=== PATIENT | male | born 1935 | race Caucasian/White ===

== ENCOUNTER → 2016-03-14 | Outpatient (CLI) | payer OTHER ==
[~2016-03-14] MED LIST: CEPH500C PO; CEPH500C2 PO; DOCU-105 PO; FRRS300 PO; FURO80TA63 PO; METO-478 PO; METO2.5T PO; METO25TA56 PO; MOML PO; MULT-506 PO; MULT1LIQ6; NVLNI SC; POTA-335 PO; POTA1POW; POTA20TA13 PO; SIMV40TA4 PO; SPR25 PO; ZNTT/150 PO; [UNRECOGNIZED DRUG - OTHER]
[2016-03-14 11:10] LABS: BASO % 0.3 %; BASO ABS # 0.02 K/uL (0-0.2); COMPLETE YES; EOS % 4.7 %; HEMATOCRIT 31.3 % (42-52); IG% 0.2 %; LYMPH % 16.5 %; LYMPH ABS # 0.99 K/uL (1.2-3.4); MEAN CELL VOLUME 77.5 fL (80-100); MEAN CORPUSCULAR HEMOGLOBIN 23.8 pg (25-34); MEAN CORPUSCULAR HGB CONC 30.7 g/dl (32-36); MEAN PLATELET VOLUME 10.2 fL (7.4-10.4); NEUT % 68.3 %; PLATELET COUNT 145 K/uL (130-400); RED BLOOD COUNT 4.04 M/uL (4.7-6.1); WHITE BLOOD COUNT 5.99 K/uL (4.8-10.8)
== END | disposition home or self-care (01) ==
LOC: C.LAB1850 10:04
PROVIDERS: ATTEND Nurse Practitioner Family
DX: N18.9 Chronic kidney disease, unspecified (principal); I50.32 Chronic diastolic (congestive) heart failure; E87.6 Hypokalemia

== ENCOUNTER 2016-04-22 11:21 | Inpatient (IN) | payer OTHER ==
[~2016-04-22] VITALS: Ht 180.3 cm; Wt 113.5 kg
[~2016-04-22 11:21] MED LIST changes: -CEPH500C PO; -FRRS300 PO; -METO-478 PO; -MULT-506 PO; -MULT1LIQ6; -POTA1POW; -SPR25 PO
--- NOTE | 2016-04-22 11:56 | DIAGNOSTIC IMAGING REPORT ---
CHEST ONE VIEW PORTABLE CLINICAL HISTORY: Shortness of breath. COMPARISON STUDY: Chest radiograph February 19, 2016. FINDINGS: A single lead left subclavian pacemaker is in place. Cardiomediastinal silhouette is stable. There is no pneumothorax. Lung volumes are diminished. This is unchanged. There are mild bibasilar opacities, left greater than right. There may be a small left pleural effusion. IMPRESSION: 1. Diminished lung volumes with left basilar opacity. Atelectasis is favored although consolidation could appear similar. 2. Possible small left pleural effusion. Electronically signed by: Igor Urbina M.D. 04/22/2016 11:55 AM Dictated Date/Time: 04/22/2016 11:53 AM
[2016-04-22] MEDS ORDERED: POTA1POW (11:59)
[2016-04-22] MEDS ORDERED: MULT1LIQ6 (12:01)
--- NOTE | 2016-04-22 12:08 | EMERGENCY ROOM VISIT NOTE ---
History Report prepared by Sincere: She Snyder Under the Supervision of: Dr. Billy Reyez M.D. First contact with patient: 12:04 Chief Complaint: SHORTNESS OF BREATH Stated Complaint: SOB Nursing Triage Summary: patient has history of CHF, HTN, Diabtetes, left lower leg ampuation and a Pacer. patient reports getting increasingly SOB over the past 3 days with non productive cough. Patient abd is distended which he reports is not normal but has increased slowly over time. History of Present Illness The patient is a 80 year old male who presents to the Emergency Room with complaints of worsening shortness of breath beginning 3 days prior to arrival. The patient states that he feels as though he cannot take a deep breath. He is also experiencing a cough and distended abdomen. The patient has increased swelling to his lower extremities. He has a history of CHF and is on Lasix. He also notes he has a pacemaker. 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 Review of Systems See HPI for pertinent positives & negatives. A total of 10 systems reviewed and were otherwise negative. Past Medical & Surgical Medical Problems: (1) A-fib (2) Abdominal distension (3) Abdominal pain (4) Anemia (5) Arthritis (6) CHF (congestive heart failure) (7) Diabetes (8) Heart disease (9) Hyperkalemia (10) Hypertension (11) Kidney disease (12) Pacemaker (13) Rectal bleed (14) Seizure (15) Sepsis (16) Shortness of breath Family History Patient reports no known family medical history. Social History Smoking Status: Former Smoker Drug Use: none Marital Status: Housing Status: assisted living Occupation Status: retired Current/Historical Medications Scheduled Furosemide (Lasix), 160 MG PO QPM Insulin Human NPH (Novolin N), 40 UNITS SC BID Magnesium Hydroxide (Milk Of Magnesia), 30 ML PO DAILY Metolazone (Zaroxolyn), 2.5 MG PO 2XWK Metoprolol Tartrate (Lopressor) (Lopressor), 25 MG PO BID Potassium Chloride Microencaps (Potassium Chloride Er), 100 MG PO 2XWK Ranitidine (Zantac), 150 MG PO BID Simvastatin (Zocor), 40 MG PO QPM Scheduled PRN Docusate Sodium (Dulcolax Stool Softener), 100-400 MG PO BID PRN for Constipation Miscellaneous Medications Multiple Vitamins W/ Minerals (Multivitamin) Potassium Chloride Pwd (Klor-Con Pwd) [multivitamin iron] Allergies Coded Allergies: Sulfa Antibiotics (Verified Allergy, Unknown, HAS TOLERATED BUMEX, 04/22/16 ) Physical Exam Vital Signs Date Time Temp Pulse Resp B/P Pulse Ox O2 Delivery O2 Flow Rate FiO2 04/22/16 14:43 61 18 123/72 100 Room Air 04/22/16 14:38 100 Room Air 04/22/16 13:21 63 20 96 Room Air 04/22/16 11:44 63 04/22/16 11:30 36.6 77 21 123/58 97 Room Air 04/22/16 11:30 36.6 77 18 123/58 97 Room Air 04/22/16 11:30 97 Room Air 04/22/16 11:30 97 Room Air Physical Exam GENERAL: Patient is a healthy-appearing well-nourished HEAD: Normocephalic atraumatic EYES: Ocular movements intact pupils equal and react to light OROPHARYNX mucous membranes are moist no exudates present no erythema or edema present NECK: Supple no nuchal rigidity CHEST: Good equal expansion LUNGS: Distant lung sounds CARDIAC: Normal S1 and S2 ABDOMEN: Soft nontender no guarding BACK: No CVA tenderness EXTREMITIES: No pain upon palpation normal muscle strength in all groups no clubbing cyanosis or edema. Left above the knee amputation NEURO: Patient is following commands is answering questions appropriately. Alert and oriented x3 Cranial Nerves 2-12 grossly intact Medical Decision & Procedures ER Provider Diagnostic Interpretation: X-ray results as stated below per interpretation by me and the radiologist: CHEST ONE VIEW PORTABLE CLINICAL HISTORY: Shortness of breath. COMPARISON STUDY: Chest radiograph February 19, 2016. FINDINGS: A single lead left subclavian pacemaker is in place. Cardiomediastinal silhouette is stable. There is no pneumothorax. Lung volumes are diminished. This is unchanged. There are mild bibasilar opacities, left greater than right. There may be a small left pleural effusion. IMPRESSION: 1. Diminished lung volumes with left basilar opacity. Atelectasis is favored although consolidation could appear similar. 2. Possible small left pleural effusion. Electronically signed by: Igor Urbina M.D. 04/22/2016 11:55 AM Dictated Date/Time: 04/22/2016 11:53 AM Laboratory Results 04/22/16 11:35 Red Blood Count 4.82, Mean Corpuscular Volume 77.6, Mean Corpuscular Hemoglobin 24.1, Mean Corpuscular Hemoglobin Concent 31.0, Mean Platelet Volume 9.4, Neutrophils (%) (Auto) 65.5, Lymphocytes (%) (Auto) 18.7, Monocytes (%) (Auto) 11.6, Eosinophils (%) (Auto) 3.8, Basophils (%) (Auto) 0.2, Neutrophils # (Auto ) 3.44, Lymphocytes # (Auto) 0.98, Monocytes # (Auto) 0.61, Eosinophils # (Auto ) 0.20, Basophils # (Auto) 0.01 04/22/16 11:35 Test 04/22/16 11:35 04/22/16 13:40 White Blood Count 5.25 K/uL (4.8-10.8) Red Blood Count 4.82 M/uL (4.7-6.1) Hemoglobin 11.6 g/dL (14.0-18.0) Hematocrit 37.4 % (42-52) Mean Corpuscular Volume 77.6 fL (80-100) Mean Corpuscular Hemoglobin 24.1 pg (25-34) Mean Corpuscular Hemoglobin Concent 31.0 g/dl (32-36) Platelet Count 115 K/uL (130-400) Mean Platelet Volume 9.4 fL (7.4-10.4) Neutrophils (%) (Auto) 65.5 % Lymphocytes (%) (Auto) 18.7 % Monocytes (%) (Auto) 11.6 % Eosinophils (%) (Auto) 3.8 % Basophils (%) (Auto) 0.2 % Neutrophils # (Auto) 3.44 K/uL (1.4-6.5) Lymphocytes # (Auto) 0.98 K/uL (1.2-3.4) Monocytes # (Auto) 0.61 K/uL (0.11-0.59) Eosinophils # (Auto) 0.20 K/uL (0-0.5) Basophils # (Auto) 0.01 K/uL (0-0.2) RDW Standard Deviation 59.5 fL (36.4-46.3) RDW Coefficient of Variation 21.2 % (11.5-14.5) Immature Granulocyte % (Auto) 0.2 % Immature Granulocyte # (Auto) 0.01 K/uL (0.00-0.02) Prothrombin Time 13.4 SECONDS (9.0-12.0) Prothromb Time International Ratio 1.2 (0.9-1.1) Activated Partial Thromboplast Time 29.9 SECONDS (21.0-31.0) Partial Thromboplastin Ratio 1.2 D-Dimer 1560 ug/L FEU (0-500) Anion Gap 9.0 mmol/L (3-11) Est Creatinine Clear Calc Drug Dose 37.3 ml/min Estimated GFR () 31.8 Estimated GFR (Non- 27.5 BUN/Creatinine Ratio 23.9 (10-20) Calcium Level 9.2 mg/dl (8.5-10.1) Total Bilirubin 1.0 mg/dl (0.2-1) Aspartate Amino Transf (AST/SGOT) 27 U/L (15-37) Alanine Aminotransferase (ALT/SGPT) 19 U/L (12-78) Alkaline Phosphatase 169 U/L (45-117) Troponin I 0.019 ng/ml (0-0.045) Pro-B-Type Natriuretic Peptide 491 pg/ml (0-1800) Total Protein 7.7 gm/dl (6.4-8.2) Albumin 3.3 gm/dl (3.4-5.0) Globulin 4.4 gm/dl (2.5-4.0) Albumin/Globulin Ratio 0.7 (0.9-2) Influenza Type A (RT-PCR) Neg for Influ A (NEG) Influenza Type B (RT-PCR) Neg for Influ B (NEG) Labs reviewed by ED physician. Medications Administered Medications (Trade) Dose Ordered Sig/Melvin Route Start Time Stop Time Status Last Admin Dose Admin Albuterol/ Ipratropium (Duoneb) 12 ml ONE ONCE INH 04/22/16 13:00 04/22/16 13:01 DC 04/22/16 13:21 12 ML Furosemide (Lasix Inj) 40 mg NOW STAT IV 04/22/16 12:56 04/22/16 12:57 DC 04/22/16 14:43 40 MG ECG Indication: SOB/dyspnea Rate (beats per minute): 66 Rhythm: other (paced) Findings: no acute ischemic change, no ectopy ED Course 1206: Past medical records reviewed. The patient was evaluated in room C10. A complete history and physical examination was performed. 1256: Lasix Inj 40 mg IV. 1300: Duoneb 12 ml INH. 1338: I discussed the patient's case with Dr. Anisha MENDOZA, he has agreed to evaluate the patient for further management and care. Medical Decision The patient is a 80 year old male who presents to the ED with complaints of shortness of breath. Differential diagnosis: Etiologies such as infections, reactive airway disease, pneumonia, pneumothorax , COPD, CHF, cardiac ischemia, pulmonary embolism, musculoskeletal, gastrointestinal, as well as others were entertained. This is a 80-year-old male who presents emergency department complaining of shortness of breath. The patient was given an hour-long breathing treatment along with Lasix. He does not appear to have any evidence of congestive heart failure on chest x-ray. the patient has a history of blood clots in the past however he is not currently on any anticoagulation and he does have an elevation in his d-dimer. For these reasons I did discuss the case with the hospitalist service who agreed to admit the patient. Patient was in agreement with the treatment plan. Consults Time Called: [phone] Consulting Physician: Dr. Gera MENDOZA Returned Call: [phone] I discussed the patient's case with Dr. Anisha MENDOZA, he has agreed to evaluate the patient for further management and care. Impression Primary Impression: Dyspnea Scribe Attestation The scribe's documentation has been prepared under my direction and personally reviewed by me in its entirety. I confirm that the note above accurately reflects all work, treatment, procedures, and medical decision making performed by me. Departure Information Dispostion Being Evaluated By Hospitalist Referrals Lilly Holguin DO (PCP) Problem Qualifiers Primary Impression: Dyspnea Dyspnea type: other forms of dyspnea Qualified Codes: R06.09 - Other forms of dyspnea
[2016-04-22 12:22] LABS: BASO % 0.2 %; BASO ABS # 0.01 K/uL (0-0.2); EOS % 3.8 %; HEMATOCRIT 37.4 % (42-52); IG% 0.2 %; LYMPH % 18.7 %; LYMPH ABS # 0.98 K/uL (1.2-3.4); MEAN CELL VOLUME 77.6 fL (80-100); MEAN CORPUSCULAR HEMOGLOBIN 24.1 pg (25-34); MEAN PLATELET VOLUME 9.4 fL (7.4-10.4); MONO % 11.6 %; NEUT % 65.5 %; PLATELET COUNT 115 K/uL (130-400); RED BLOOD COUNT 4.82 M/uL (4.7-6.1); WHITE BLOOD COUNT 5.25 K/uL (4.8-10.8)
[2016-04-22 12:29] LABS: BUN/CREATININE RATIO 23.9 (10-20); CALCIUM 9.2 mg/dl (8.5-10.1); CREATININE 2.2 mg/dl (0.60-1.40); POTASSIUM 4.3 mmol/L (3.5-5.1)
[2016-04-22 12:32] LABS: INR 1.2 (0.9-1.1); PARTIAL THROMBOPLASTIN RATIO 1.2; PROTHROMBIN TIME (PATIENT) 13.4 SECONDS (9.0-12.0)
[2016-04-22 12:40] LABS: ALB/GLOB RATIO 0.7 (0.9-2)
[2016-04-22 12:45] LABS: COMPLETE YES
[2016-04-22] MEDS ORDERED: FUROSEMIDE 40 MG/4 ML VIAL IV STA (12:56)
[2016-04-22] MEDS ORDERED: ALBUT/IPRATROP 3MG/0.5MG NEB 3 ML VIAL INH ONE (13:00)
[2016-04-22 13:21] VITALS: PULSE 63; O2SAT 96
[2016-04-22 14:38] VITALS: O2SAT 100; BMI 39.8
[2016-04-22] MEDS ORDERED: ACETAMINOPHEN 325 MG TAB PO PRN (14:45)
[2016-04-22] MEDS ORDERED: DOCUSATE SODIUM 100 MG CAP PO PRN (14:45)
[2016-04-22] MEDS ORDERED: POLYETHYLENE (MIRALAX) 17 GM PACK PO PRN (14:45)
[2016-04-22] MEDS ORDERED: MAGNESIUM HYDROXIDE SUSP 30 ML UDC PO PRN (14:45)
[2016-04-22] MEDS ORDERED: ONDANSETRON INJ 2 MG/ML 2 ML VIAL IV PRN (14:45)
[2016-04-22 15:20] LABS: INFLUENZA A PCR Neg for Influ A (NEG); INFLUENZA B PCR Neg for Influ B (NEG)
--- NOTE | 2016-04-22 15:46 | History and Physical ---
History & Physical Date & Time of Service: Apr 22, 2016 at 15:06 Chief Complaint: SOB Primary Care Physician: Lilly Holguin DO History of Present Illness Source: patient, clinic records, hospital records This is a 80 y/o male with a history of CHF, CKD stage III, DM II, HTN, HLD, a- fib, BPH, anemia and h/o left left amputation who presented to the ED on 04/22 with shortness of breath, non-productive cough, weakness and fatigue x 3 days. The patient states that he feels like he cannot take a deep breath. He has been using nebulizer treatments at home but states that they have not helped. He received a Duoneb hour-long in the ED which he also says did not help. He complains of dyspnea on exertion and occasional wheezing. He also reports an intermittent mild soreness across his chest that occurs after he has a coughing fit and will resolve on its own after the coughing has stopped. The patient has chronic swelling in his right lower extremity, but states that the swelling seems to be worse lately than usual. The patient states that he has also noticed abdominal distention over the last month that has slowly progressed. He complains that his abdomen feels hard although he denies any pain, nausea, or vomiting. He has been moving his bowels. The patient denies fevers, chills , sweats, palpitations, claudication, nausea, vomiting, abdominal pain, dysuria , hematuria, urinary retention, paralysis, motor weakness, new numbness and tingling. Past Medical/Surgical History Medical Problems: (1) A-fib Status: Resolved (2) Arthritis Status: Chronic (3) CHF (congestive heart failure) Status: Chronic (4) Diabetes Status: Chronic (5) Heart disease Status: Chronic (6) Hypertension Status: Chronic (7) CKD stage III Status: Chronic (8) Pacemaker Status: Chronic (9) Seizure Status: Resolved Family History Coronary artery disease Myocardial infarction Social History Smoking Status: Former Smoker Smokeless Tobacco Use: No Alcohol Use: none Drug Use: none Marital Status: Housing status: lives alone Occupational Status: retired Immunizations History of Influenza Vaccine: No History of Tetanus Vaccine?: Unknown History of Pneumococcal: Yes Pneumococcal Date: Mar 03, 2009 History of Hepatitis B Vaccine: Unknown Multi-Drug Resistant Organisms History of MDRO: Yes Type of MDRO: MRSA Allergies Coded Allergies: Sulfa Antibiotics (Verified Allergy, Unknown, HAS TOLERATED BUMEX, 04/22/16 ) Home Medications Scheduled Furosemide (Lasix), 160 MG PO QPM Insulin Human NPH (Novolin N), 40 UNITS SC BID Magnesium Hydroxide (Milk Of Magnesia), 30 ML PO DAILY Metolazone (Zaroxolyn), 2.5 MG PO 2XWK Metoprolol Tartrate (Lopressor) (Lopressor), 25 MG PO BID Potassium Chloride Microencaps (Potassium Chloride Er), 100 MG PO 2XWK Ranitidine (Zantac), 150 MG PO BID Simvastatin (Zocor), 40 MG PO QPM Scheduled PRN Docusate Sodium (Dulcolax Stool Softener), 100-400 MG PO BID PRN for Constipation Miscellaneous Medications Multiple Vitamins W/ Minerals (Multivitamin) Potassium Chloride Pwd (Klor-Con Pwd) [multivitamin iron] Review of Systems Constitutional: + fatigue, + weakness, No chills, No fever, No sweats Eyes: No diplopia, No eye pain, No worsening of vision ENT: No hearing loss, No sore throat, No trouble swallowing Respiratory: + cough, + dyspnea on exertion, + shortness of breath, + wheezing (occasional), No sputum Cardiovascular: + chest pain (occurs during coughing fits, resolves afterwards) , + edema (RLE), No claudication, No orthopnea, No palpitations Abdomen: No constipation, No diarrhea, No nausea, No pain, No vomiting Musculoskeletal: No calf pain, No joint pain, No muscle pain Genitourinary - Male: No dysuria, No hematuria, No urinary retention Neurologic: + numbness/tingling (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, no new changes), No paralysis, No weakness Integumentary: + problem reported (venous stasis ulcers RLE, pt goes to wound clinic), No color change, No itch, No rash Physical Exam Vital Signs Date Time Temp Pulse Resp B/P Pulse Ox O2 Delivery O2 Flow Rate FiO2 04/22/16 14:43 61 18 123/72 100 Room Air 04/22/16 13:21 63 20 96 Room Air 04/22/16 11:44 63 04/22/16 11:30 36.6 77 21 123/58 97 Room Air 04/22/16 11:30 36.6 77 18 123/58 97 Room Air 04/22/16 11:30 97 Room Air 04/22/16 11:30 97 Room Air General Appearance: WD/WN, no apparent distress, + obese, + pertinent finding ( pt becomes very red in the face whenever he coughs, then returns to normal color ) Head: normocephalic, atraumatic Eyes: normal inspection, PERRL, EOMI ENT: normal ENT inspection, hearing grossly normal, pharynx normal Neck: supple, no JVD, trachea midline Respiratory/Chest: lungs clear, normal breath sounds, no respiratory distress, + decreased breath sounds (exam limited, pt cannot take deep breaths) Cardiovascular: regular rate, rhythm (paced), no gallop, no murmur Abdomen/GI: normal bowel sounds, non tender, + distended (marked distention) Extremities/Musculoskelatal: no calf tenderness, normal capillary refill, + pedal edema (4+ pitting edema), + swelling (4+ pitting edema in foot, extends up RLE, 1+ around knee), + pertinent finding (RLE erythematous with blistering, venous stasis wound on RLE bandaged. LLE amputated) Neurologic/Psych: alert, normal mood/affect, oriented x 3 Skin: normal color, warm/dry, no rash, + pertinent finding (erythema of RLE from foot to knee, erythema on LLQ of abdomen) Diagnostics Laboratory Results Results Past 24 Hours Test 04/22/16 11:35 04/22/16 13:40 Range/Units White Blood Count 5.25 4.8-10.8 K/uL Red Blood Count 4.82 4.7-6.1 M/uL Hemoglobin 11.6 14.0-18.0 g/dL Hematocrit 37.4 42-52 % Mean Corpuscular Volume 77.6 80-100 fL Mean Corpuscular Hemoglobin 24.1 25-34 pg Mean Corpuscular Hemoglobin Concent 31.0 32-36 g/dl Platelet Count 115 130-400 K/uL Mean Platelet Volume 9.4 7.4-10.4 fL Neutrophils (%) (Auto) 65.5 % Lymphocytes (%) (Auto) 18.7 % Monocytes (%) (Auto) 11.6 % Eosinophils (%) (Auto) 3.8 % Basophils (%) (Auto) 0.2 % Neutrophils # (Auto) 3.44 1.4-6.5 K/uL Lymphocytes # (Auto) 0.98 1.2-3.4 K/uL Monocytes # (Auto) 0.61 0.11-0.59 K/uL Eosinophils # (Auto) 0.20 0-0.5 K/uL Basophils # (Auto) 0.01 0-0.2 K/uL RDW Standard Deviation 59.5 36.4-46.3 fL RDW Coefficient of Variation 21.2 11.5-14.5 % Immature Granulocyte % (Auto) 0.2 % Immature Granulocyte # (Auto) 0.01 0.00-0.02 K/uL Prothrombin Time 13.4 9.0-12.0 SECONDS Prothromb Time International Ratio 1.2 0.9-1.1 Activated Partial Thromboplast Time 29.9 21.0-31.0 SECONDS Partial Thromboplastin Ratio 1.2 D-Dimer 1560 0-500 ug/L FEU Sodium Level 141 136-145 mmol/L Potassium Level 4.3 3.5-5.1 mmol/L Chloride Level 102 98-107 mmol/L Carbon Dioxide Level 30 21-32 mmol/L Anion Gap 9.0 3-11 mmol/L Blood Urea Nitrogen 53 7-18 mg/dl Creatinine 2.20 0.60-1.40 mg/dl Est Creatinine Clear Calc Drug Dose 37.3 ml/min Estimated GFR () 31.8 Estimated GFR (Non- 27.5 BUN/Creatinine Ratio 23.9 10-20 Random Glucose 84 70-99 mg/dl Calcium Level 9.2 8.5-10.1 mg/dl Total Bilirubin 1.0 0.2-1 mg/dl Aspartate Amino Transf (AST/SGOT) 27 15-37 U/L Alanine Aminotransferase (ALT/SGPT) 19 12-78 U/L Alkaline Phosphatase 169 45-117 U/L Troponin I 0.019 0-0.045 ng/ml Pro-B-Type Natriuretic Peptide 491 0-1800 pg/ml Total Protein 7.7 6.4-8.2 gm/dl Albumin 3.3 3.4-5.0 gm/dl Globulin 4.4 2.5-4.0 gm/dl Albumin/Globulin Ratio 0.7 0.9-2 Diagnostic Radiology Reviewed the following studies and agree with interpretation as follows: Patient Name: SHLOMO BROWN Unit Number: [id number] Dictated: 04/22/161152 Transcribed: 04/22/161152 JA Printed Date/Time: [~ rep prt dt]/[~ rep prt tm] [~ rep ct labl] - [~ rep ct ivnm] [facility] [place] [address] Dictated: 04/22/161152 Transcribed: 04/22/161152 JA Printed Date/Time: [~ rep prt dt]/[~ rep prt tm] [~ rep ct labl] - [~ rep ct ivnm] Patient: SHLOMO BROWN Address1: [address] [place] [address] [address] [facility] Rec: [id number] Address2: Acct ID: [id number] [facility] Zip: [place] [address] Date: 1935 Sex: M Room/Bed: Ref Phy: Lilly Holguin DO SC: C.EDC Att Phy: Report #: [id number] Anny Phy: Lilly Holguin DO Test: CXR1P Admit Phy: Pickling Solution Maker: DAFNE Interpreting Phy: Igor Urbina MD Diagnosis: SOB Ordering Phy: ED, PROTOCOL Service Date: 04/22/16 Admit Date: 04/22/16 MNE: [id number] CONF: DICTATED BY: Igor Urbina MD]] CC: ED,PROTOCOL No Doctor, Assigned Lilly Holguin DO Endcc: [~ rep ct add3]] CHEST ONE VIEW PORTABLE CLINICAL HISTORY: Shortness of breath. COMPARISON STUDY: Chest radiograph February 19, 2016. FINDINGS: A single lead left subclavian pacemaker is in place. Cardiomediastinal silhouette is stable. There is no pneumothorax. Lung volumes are diminished. This is unchanged. There are mild bibasilar opacities, left greater than right. There may be a small left pleural effusion. IMPRESSION: 1. Diminished lung volumes with left basilar opacity. Atelectasis is favored although consolidation could appear similar. 2. Possible small left pleural effusion. Electronically signed by: Igor Urbina M.D. 04/22/2016 11:55 AM Dictated Date/Time: 04/22/2016 11:53 AM The status of this report is Signed. Draft = Not yet reviewed or approved by Radiologist. Signed = Reviewed and approved by Radiologist. <AttendingPhy></AttendingPhy> <FamilyPhy>Lilly Holguin, DO</FamilyPhy> < PrimaryPhy>Lilly Holguin, DO</PrimaryPhy> <UnitNumber>[id number]</UnitNumber > <VisitNumber>[id number]</VisitNumber> <PatientName>SHLOMO BROWN</ PatientName> <DateOfBirth>1935</DateOfBirth> <[facility]> < ServiceDate>04/22/16</ServiceDate> <MNE>ESINDI</MNE> <OrderingPhy>ED, PROTOCOL</ OrderingPhy> <OrderingPhyMNE>f rep ord dr bullock</OrderingPhyMNE> <DictatingPhyMNE> f rep dict dr bullock</DictatingPhyMNE> <CCListMNE>f rep ct mne</CCListMNE> < AdmittingPhyMNE>f pt admit dr bullock</AdmittingPhyMNE> <AttendingPhyMNE>f pt attend dr bullock</AttendingPhyMNE> <ConsultingPhyMNE>f pt consult dr bullock</ConsultingPhyMNE> <FamilyPhyMNE>f pt fam dr bullock</FamilyPhyMNE> <OtherPhyMNE>f pt other dr bullock</OtherPhyMNE> < PrimaryPhyMNE>f pt prim care dr bullock</PrimaryPhyMNE> <ReferringPhyMNE>f pt referring dr bullock</ReferringPhyMNE> EKG Reviewed EKG and agree with interpretation as follows: 66 bpm, ventricular paced Impression Assessment and Plan 80 y/o male with a history of CHF, CKD stage III, DM II, HTN, HLD, a-fib, BPH, anemia and h/o left left amputation who presented to the ED on 04/22 with shortness of breath, non-productive cough, weakness and fatigue x 3 days. Recently stopped Pradaxa about 1 month ago due to bleeding issues. Also c/o worsening abdominal distention. Moving bowels. CXR shows likely atelectasis right base. EKG 66 bpm, ventricular paced rhythm. D-dimer elevated at 1560. Elevated creatinine above baseline at 2.2. VSS, pt not tachycardic or hypoxic on room air. Shortness of breath, recently stopped anticoagulation -Admit to med/surg as he is stable and non-hypoxic -Elevated creatinine, contrast contraindicated for CTA -V/Q scan to r/o PE, although given absence of tachycardia and hypoxia, this seems unlikely -Doppler U/S RLE to r/o DVT given erythema and edema Abdominal distention--gradually worsening over last month. Pt has been moving bowels -CT abd/pelvis w/o contrast. Will wait for results before further plan Acute kidney injury on CKD stage III--baseline creatinine around 1.7 -Creatinine upon arrival 2.2, pt given Lasix 40 mg IV in ED -Will await abd CT results before initiating IVF -Continue to monitor Venous stasis ulcers--pt follows up at a wound clinic. Wound culture on 04/16 show PCN/cephalosporin sensitive staph aureus. Pt. started on Keflex as an outpatient 2 days ago. -Keflex 500 mg PO BID x 8 days, renally dosed Chronic diastolic CHF -Continue Lasix 160 mg PO qd and metolazone 2.5 mg PO 2x/week (Mondays and ) -Continue KCl 100 mEq PO 2x/week (Mondays and ) Diabetes mellitus type 2--Last HgbA1c checked 10/11/15 was 7.1 -Insulin sliding scale -Check BSGs q ac and qhs -Recheck HgbA1c HTN--stable -Continue Lopressor 25 mg PO BID HLD -Continue simvastatin 40 mg PO qd DVT prophylaxis -Heparin 5000 units SC q12h -EVELINE Calvos Code Status -Level V, DO NOT RESUSCITATE Level of Care Med/Surg Resuscitation Status DO NOT RESUSCITATE VTE Prophylaxis VTE Risk Assessment Done? Y/N: Yes Risk Level: Moderate Given or contraindicated: Unfractionated heparin SQ, SCD's Reviewed: Pt Seen/Exam by Me, RN Notes, HO Notes, Prior Records, Labs, RAD History I agree with GEETHA Aguilera H&P with some modifications as below A 80 y/o male with a history of CHF, CKD stage 3, T2DM, HTN, HLD, afib, BPH, anemia and hx of left left amputation who comes with shortness of breath, non- productive cough, weakness and fatigue for 3 days. Recently stopped Pradaxa about 1 month ago due to bleeding issues. Also complains of worsening abdominal distention. Moving bowels ok. CXR shows likely atelectasis right base. EKG 66 bpm, ventricular paced rhythm. D-dimer elevated at 1560. Elevated creatinine above baseline at 2.2. VSS, pt not tachycardic or hypoxic on room air. Constitutional: acknowledges: other (obese), denies: chills EENTM: denies: tearing Respiratory: positive: short of breath Cardiovascular: denies chest pain Gastrointestinal/Abdominal: positive: other (distension) Genitourinary: negative discharge Musculoskeletal: negative: back pain Neurological/Psych: negative: anxiety Hematologic/Lymphatic: negative: anemia General Appearance: WD/WN, no apparent distress Eye Exam: bilateral eye normal inspection Ears, Nose, Throat: hearing grossly normal, pharynx normal Neck: non-tender, supple Respiratory: chest non-tender, normal breath sounds Cardiovascular: normal peripheral pulses Gastrointestinal: normal bowel sounds, distended Extremities: swelling (4 + swelling right leg), other (LEFT AKA, right leg wound covered with dressing, some vascular dermatitis present throughout) Neurologic/Psychiatric: alert, normal mood/affect Skin Characteristics: cyanosis Assessment/Plan A 80 y/o male with a history of CHF, CKD stage 3, T2DM, HTN, HLD, afib, BPH, anemia and hx of left left amputation who comes with shortness of breath, non- productive cough, weakness and fatigue for 3 days. Recently stopped Pradaxa about 1 month ago due to bleeding issues. Also complains of worsening abdominal distention. Moving bowels ok. CXR shows likely atelectasis right base. EKG 66 bpm, ventricular paced rhythm. D-dimer elevated at 1560. Elevated creatinine above baseline at 2.2. VSS, pt not tachycardic or hypoxic on room air. Shortness of breath, recently stopped anticoagulation Admit to med/surg contrast contraindicated for CTA due to elevated creatinine V/Q scan to r/o PE, although given absence of tachycardia and hypoxia, this seems unlikely check Doppler U/S RLE to r/o DVT given erythema and edema Abdominal distention, gradually worsening over last month. Pt has been moving bowels CT abd/pelvis w/o contrast. r/o ascites, unfortunately, can`t use contrast for better visualization Acute kidney failure on CKD stage 3, baseline creatinine around 1.7 Creatinine upon arrival 2.2, pt given Lasix 40 mg IV in ED Will await abd CT results before initiating IVF Continue to monitor creatinine Venous stasis ulcers--pt follows up at a wound clinic. Wound culture on 04/16 show PCN/cephalosporin sensitive staph aureus. Patient was started on Keflex as an outpatient 2 days ago. Keflex 500 mg PO BID x 8 days, renally dosed Chronic diastolic CHF, seems to be stable Continue Lasix 160 mg PO qd and metolazone 2.5 mg PO 2x/week (Mondays and ) Continue KCl 100 mEq PO 2x/week (Mondays and ) Diabetes mellitus type 2, Last HgbA1c checked 10/11/15 was 7.1 Insulin sliding scale Check BSGs q ac and qhs Recheck HgbA1c HTN--stable Continue Lopressor 25 mg PO BID HLD Continue simvastatin 40 mg PO qd DVT prophylaxis Heparin 5000 units Sq q12h Code Status: DO NOT RESUSCITATE case discussed with Tawana INIGUEZ time spent 40 min
--- NOTE | 2016-04-22 15:52 | DIAGNOSTIC IMAGING REPORT ---
CT OF THE ABDOMEN AND PELVIS WITHOUT CONTRAST CLINICAL HISTORY: Abdominal distention. COMPARISON STUDY: CT of the abdomen and pelvis January 24, 2016. TECHNIQUE: Axial images of the abdomen and pelvis were obtained without IV contrast. Images were reviewed in the axial, sagittal, and coronal planes. FINDINGS: Visualized portions of the lower chest partially visualize a pacemaker lead. There is moderate cardiomegaly. Gynecomastia is noted. Small bilateral pleural effusions, left larger than right, are noted. There is mild groundglass opacity. No pneumatosis, free air or portal venous gas is present. Evaluation of the abdomen and pelvis is suboptimal on this unenhanced examination. This extensive retroperitoneal fat surrounding both kidneys. There is a small amount of abdominal and pelvic ascites. There is no evidence for a bowel obstruction. The gallbladder surgically absent. There is no biliary ductal dilatation. Unenhanced images of liver, spleen, adrenal glands and pancreas are unremarkable. Generalized anasarca is noted. There is colonic diverticulosis without evidence for acute diverticulitis. No suspicious osseous lesions are present. Bilateral moderate renal cortical thinning is noted. There is no hydronephrosis. A fat and fluid containing umbilical hernia is noted. There is no suspicious osseous lesion. There is no lymphadenopathy. The prostate is mildly enlarged. IMPRESSION: 1. Small amount of abdominal and pelvic ascites. 2. No bowel obstruction. 3. Extensive retroperitoneal fat, a chronic finding. 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 4. Small bilateral pleural effusions, left larger than right. Anasarca. 5. Suboptimal evaluation of the abdomen and pelvis given the lack of contrast. Electronically signed by: Igor Urbina M.D. 04/22/2016 3:50 PM Dictated Date/Time: 04/22/2016 3:39 PM
[2016-04-22 16:52] VITALS: BP 134/72; PULSE 64; TEMP 36.3; O2SAT 98
--- NOTE | 2016-04-22 18:03 | DIAGNOSTIC IMAGING REPORT ---
NUCLEAR MEDICINE VENTILATION/PERFUSION SCAN CLINICAL HISTORY: Shortness of breath. Elevated d-dimer. COMPARISON: Chest radiograph April 22, 2016. TECHNIQUE: For the ventilation portion of this exam, 31 mCi of DTPA was inhaled at 5:20 PM on April 22, 2016. Immediately following inhalation, imaging of the chest was carried out in the anterior, posterior, left lateral, right lateral, LPO, RPO, [place] and COLEMAN projections. For the perfusion portion of exam, 5.5 mCi of technetium 99m MAA was injected IV at 6:15 PM on April 22, 2016. Immediately following injection, imaging of the chest was carried out in the same projections. FINDINGS: There is central radiotracer deposition on the ventilation portion of this exam which suggests chronic lung disease. A photopenic defect projecting over the left upper hemithorax is due to the pacemaker. No mismatched defects are identified on this exam. This study is considered low probability for pulmonary embolus. IMPRESSION: Low probability for pulmonary embolus. Electronically signed by: Igor Urbina M.D. 04/22/2016 6:01 PM Dictated Date/Time: 04/22/2016 6:00 PM
[2016-04-22] MEDS: FUROSEMIDE 80 MG TAB PO SCH (18:31)
[2016-04-22 20:35] VITALS: BP 120/69; PULSE 62
[2016-04-22] MEDS: RANITIDINE HCL 150 MG TAB PO SCH (20:38)
[2016-04-22] MEDS: METOPROLOL TARTRATE 25 MG TAB PO SCH (20:38)
[2016-04-22] MEDS: SIMVASTATIN 40 MG TAB PO SCH (20:38)
[2016-04-22] MEDS: CEPHALEXIN MONOHYDRATE 500 MG CAP PO SCH (20:38)
[2016-04-22] MEDS: HEPARIN SOD 5000 UNIT/0.5 ML CARP SQ SCH (20:45)
--- NOTE | 2016-04-22 21:32 | DIAGNOSTIC IMAGING REPORT ---
RIGHT LOWER EXTREMITY VENOUS DOPPLER CLINICAL HISTORY: Edema and erythema. COMPARISON STUDY: Right lower extremity venous Doppler February 16, 2016. TECHNIQUE: Sonography of the deep venous system of the right lower extremity was performed. Compression and augmentation were evaluated. FINDINGS: The right common femoral, superficial femoral and popliteal veins were compressible. Augmentation was normal. Flow was shown within the deep calf vessels although the calf vessels were suboptimally assessed due to lower extremity edema. IMPRESSION: No evidence of deep venous thrombus within the right lower extremity. Electronically signed by: Igor Urbina M.D. 04/22/2016 9:31 PM Dictated Date/Time: 04/22/2016 9:30 PM
[2016-04-22 22:59] VITALS: BP 120/67; PULSE 61; TEMP 36.2; O2SAT 95
[2016-04-22] MEDS ORDERED: NURSING DECISION MEDICATION ORDER SCH (23:30)
[2016-04-22] MEDS ORDERED: COUGH DROP (SUGAR FREE) LOZ 24 LOZ/1 BOX PO PRN (23:45)
[2016-04-23 06:20] LABS: ESTIMATED AVERAGE GLUCOSE 126 mg/dl; HA1C FLAG Normal (Normal)
[2016-04-23 06:24] LABS: HEMATOCRIT 33.8 % (42-52); MEAN CELL VOLUME 77.5 fL (80-100); MEAN CORPUSCULAR HEMOGLOBIN 24.5 pg (25-34); MEAN CORPUSCULAR HGB CONC 31.7 g/dl (32-36); MEAN PLATELET VOLUME 9.6 fL (7.4-10.4); PLATELET COUNT 109 K/uL (130-400); RED BLOOD COUNT 4.36 M/uL (4.7-6.1); WHITE BLOOD COUNT 5.08 K/uL (4.8-10.8)
[2016-04-23 07:01] LABS: BUN/CREATININE RATIO 23.2 (10-20); CALCIUM 8.4 mg/dl (8.5-10.1); CREATININE 2.4 mg/dl (0.60-1.40); POTASSIUM 4.7 mmol/L (3.5-5.1)
[2016-04-23] MEDS ORDERED: CEPH500C PO (07:25)
[2016-04-23 07:31] VITALS: BP 94/58; PULSE 62; TEMP 36.8; O2SAT 94
[2016-04-23] MEDS: METOPROLOL TARTRATE 25 MG TAB PO SCH ×2 (07:56→21:00)
[2016-04-23] MEDS: HEPARIN SOD 5000 UNIT/0.5 ML CARP SQ SCH ×2 (07:58→21:00)
[2016-04-23] MEDS: POTASSIUM CHLORIDE 20 MEQ TABCR PO SCH (08:02)
[2016-04-23] MEDS: METOLAZONE 2.5 MG TAB PO SCH (08:02)
[2016-04-23] MEDS: RANITIDINE HCL 150 MG TAB PO SCH ×2 (08:02→21:21)
[2016-04-23] MEDS: MAGNESIUM HYDROXIDE SUSP 30 ML UDC PO SCH (08:02)
[2016-04-23] MEDS: CEPHALEXIN MONOHYDRATE 500 MG CAP PO SCH ×2 (08:02→21:20)
[2016-04-23] MEDS ORDERED: DEXTROSE 50% 50 ML SYR IV PRN (08:45)
[2016-04-23] MEDS ORDERED: GLUCOSE 10 TABS/TUBE PO PRN (08:45)
[2016-04-23] MEDS ORDERED: GLUCAGON FOR INJ 1 MG VIAL SQ PRN (08:45)
[2016-04-23] MEDS ORDERED: GLUCOSE 40% GEL 15 GM TUBE PO PRN (08:45)
[2016-04-23] MEDS: SENNA 8.6 MG TAB PO SCH (08:55)
[2016-04-23] MEDS: INSULIN ASPART 100 UNITS/ML 3 ML PEN SC SCH ×4 (08:58→21:22)
[2016-04-23] MEDS: INSULIN GLARGINE SOLOSTAR 100 UNITS/ML 3 ML PEN SC SCH ×2 (08:59→21:22)
[2016-04-23] MEDS ORDERED: MAGNESIUM HYDROXIDE SUSP 30 ML UDC PO SCH (09:00)
[2016-04-23 12:32] VITALS: Ht 180.3 cm; Wt 113.5 kg
[2016-04-23] MEDS ORDERED: SPIRONOLACTONE 25 MG TAB PO ONE (13:00)
--- NOTE | 2016-04-23 13:08 | Hospitalist Progress Note ---
Hospitalist Progress Note Date of Service Apr 23, 2016. (Tawana Aguilera .ALLEN) Subjective Pt evaluation today including: conversation w/ patient, physical exam, chart review, lab review, review of studies, review of inpatient medication list Pain: None PO Intake: Tolerating PO diet Voiding: no voiding problems The patient reports not feeling well. He complains of weakness and fatigue. He states that his shortness of breath remains the same from yesterday, and he is not able to take a deep breath. He does report that his cough is somewhat improved since receiving cough drops and he was able to sleep better last night. He complains of occasional wheezing and LIZ. He reports swelling in his RLE that has remained stable. The patient denies fevers, chills, sweats, chest pain, palpitations, claudication, orthopnea, PND, nausea, vomiting, abdominal pain, dysuria, hematuria, urinary retention, paralysis, weakness, new numbness and tingling. Additional Comments: See HPI for pertinent positives and negatives. All other systems reviewed and negative. (Tawana Aguilera ., ALLEN) Objective Vital Signs Date Time Temp Pulse Resp B/P Pulse Ox O2 Delivery O2 Flow Rate FiO2 04/23/16 08:00 Room Air 04/23/16 07:31 36.8 62 20 94/58 94 Room Air 04/23/16 00:00 Room Air 04/22/16 22:59 36.2 61 18 120/67 95 Room Air 04/22/16 20:35 62 120/69 04/22/16 16:52 36.3 64 20 134/72 98 Room Air 04/22/16 16:35 Room Air 04/22/16 16:31 61 18 116/60 100 04/22/16 16:22 116/60 04/22/16 14:43 61 18 123/72 100 Room Air 04/22/16 14:38 100 Room Air 04/22/16 13:21 63 20 96 Room Air (Tawana Aguilera .CHRISC) Physical Exam General Appearance: WD/WN, no apparent distress, + obese Eyes: normal inspection, PERRL, EOMI ENT: normal ENT inspection, hearing grossly normal, pharynx normal Neck: supple, no JVD, trachea midline Respiratory/Chest: lungs clear, normal breath sounds, no respiratory distress, + decreased breath sounds, + pertinent finding (exam limited as pt cannot take deep breath) Cardiovascular: regular rate, rhythm, no gallop, no murmur Abdomen: normal bowel sounds, + distended, + tenderness (suprapubic area and LLQ TTP) Extremities: + pedal edema (4+ pitting R pedal edema), + swelling (3+ pitting edema in RLE up to knee), + pertinent finding (erythema, blistering RLE, venous stasis wounds) Neurologic/Psychiatric: alert, normal mood/affect, oriented x 3 Skin: normal color, warm/dry, no rash (Tawana Aguilera ., ALLEN) Laboratory Results Last 24 Hours Test 04/22/16 13:40 04/22/16 18:25 04/22/16 20:32 04/23/16 05:49 Influenza Type A (RT-PCR) Neg for Influ A Influenza Type B (RT-PCR) Neg for Influ B Bedside Glucose 86 mg/dl 120 mg/dl White Blood Count 5.08 K/uL Red Blood Count 4.36 M/uL Hemoglobin 10.7 g/dL Hematocrit 33.8 % Mean Corpuscular Volume 77.5 fL Mean Corpuscular Hemoglobin 24.5 pg Mean Corpuscular Hemoglobin Concent 31.7 g/dl RDW Standard Deviation 60.8 fL RDW Coefficient of Variation 21.4 % Platelet Count 109 K/uL Mean Platelet Volume 9.6 fL Sodium Level 141 mmol/L Potassium Level 4.7 mmol/L Chloride Level 103 mmol/L Carbon Dioxide Level 27 mmol/L Anion Gap 11.0 mmol/L Blood Urea Nitrogen 56 mg/dl Creatinine 2.40 mg/dl Est Creatinine Clear Calc Drug Dose 34.2 ml/min Estimated GFR () 28.7 Estimated GFR (Non- 24.7 BUN/Creatinine Ratio 23.2 Random Glucose 153 mg/dl Calcium Level 8.4 mg/dl Test 04/23/16 07:39 04/23/16 11:16 04/23/16 12:24 Bedside Glucose 163 mg/dl 187 mg/dl (Tawana Aguilera PA-C) Diagnostic Results Reviewed the following studies and agree with interpretation as follows: Patient Name: SHLOMO BROWN Unit Number: [id number] Dictated: 04/22/161538 Transcribed: 04/22/161538 JA Printed Date/Time: [~ rep prt dt]/[~ rep prt tm] [~ rep ct labl] - [~ rep ct ivnm] [facility] [place] [place] [address] Dictated: 04/22/161538 Transcribed: 04/22/161538 Printed Date/Time: [~ rep prt dt]/[~ rep prt tm] [~ rep ct labl] - [~ rep ct ivnm] Patient: SHLOMO BROWN Address1: [address] [place] [address] [address] [facility] Rec: [id number] Address2: Acct ID: [id number] [facility] Zip: [place] [address] Date: 1935 Sex: M Room/Bed: Ref Phy: Lilly Holguin DO SC: C.EDC Att Phy: Report #: [id number] Anny Phy: Lilly Holguin DO Test: APWO Admit Phy: Roving Changer: PULAJM Interpreting Phy: Igor Urbina MD Diagnosis: SOB Ordering Phy: Billy Reyez MD Service Date: 04/22/16 Admit Date: 04/22/16 MNE: [id number] CONF: DICTATED BY: Igor Urbina MD]] CC: Billy Reyez MD Ricotta, Cara M., Endcc: [~ rep ct add3]] CT OF THE ABDOMEN AND PELVIS WITHOUT CONTRAST CLINICAL HISTORY: Abdominal distention. COMPARISON STUDY: CT of the abdomen and pelvis January 24, 2016. TECHNIQUE: Axial images of the abdomen and pelvis were obtained without IV contrast. Images were reviewed in the axial, sagittal, and coronal planes. FINDINGS: Visualized portions of the lower chest partially visualize a pacemaker lead. There is moderate cardiomegaly. Gynecomastia is noted. Small bilateral pleural effusions, left larger than right, are noted. There is mild groundglass opacity. No pneumatosis, free air or portal venous gas is present. Evaluation of the abdomen and pelvis is suboptimal on this unenhanced examination. This extensive retroperitoneal fat surrounding both kidneys. There is a small amount of abdominal and pelvic ascites. There is no evidence for a bowel obstruction. The gallbladder surgically absent. There is no biliary ductal dilatation. Unenhanced images of liver, spleen, adrenal glands and pancreas are unremarkable. Generalized anasarca is noted. There is colonic diverticulosis without evidence for acute diverticulitis. No suspicious osseous lesions are present. Bilateral moderate renal cortical thinning is noted. There is no hydronephrosis. A fat and fluid containing umbilical hernia is noted. There is no suspicious osseous lesion. There is no lymphadenopathy. The prostate is mildly enlarged. IMPRESSION: 1. Small amount of abdominal and pelvic ascites. 2. No bowel obstruction. 3. Extensive retroperitoneal fat, a chronic finding. 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 4. Small bilateral pleural effusions, left larger than right. Anasarca. 5. Suboptimal evaluation of the abdomen and pelvis given the lack of contrast. Electronically signed by: Igor Urbina M.D. 04/22/2016 3:50 PM Dictated Date/Time: 04/22/2016 3:39 PM The status of this report is Signed. Draft = Not yet reviewed or approved by Radiologist. Signed = Reviewed and approved by Radiologist. <AttendingPhy></AttendingPhy> <FamilyPhy>Lilly Holguin, DO</FamilyPhy> < PrimaryPhy>Lilly Holguin, DO</PrimaryPhy> <UnitNumber>[id number]</UnitNumber > <VisitNumber>[id number]</VisitNumber> <PatientName>SHLOMO BROWN</ PatientName> <DateOfBirth>1935</DateOfBirth> <Location>C.EDC</Location> < ServiceDate>04/22/16</ServiceDate> <MNE>ESINDI</MNE> <OrderingPhy>Billy Reyez MD</OrderingPhy> <OrderingPhyMNE>f rep ord dr bullock</OrderingPhyMNE> < DictatingPhyMNE>f rep dict dr bullock</DictatingPhyMNE> <CCListMNE>f rep ct massiele</ CCListMNE> <AdmittingPhyMNE>f pt admit dr bullock</AdmittingPhyMNE> <AttendingPhyMNE >f pt attend dr bullock</AttendingPhyMNE> <ConsultingPhyMNE>f pt consult dr bullock</ConsultingPhyMNE> <FamilyPhyMNE>f pt fam dr bullock</FamilyPhyMNE> <OtherPhyMNE>f pt other dr bullock</OtherPhyMNE> < PrimaryPhyMNE>f pt prim care dr bullock</PrimaryPhyMNE> <ReferringPhyMNE>f pt referring dr bullock</ReferringPhyMNE> Patient Name: SHLOMO BROWN Unit Number: [id number] Dictated: 04/22/161799 Transcribed: 04/22/161799 JA Printed Date/Time: [~ rep prt dt]/[~ rep prt tm] [~ rep ct labl] - [~ rep ct ivnm] [facility] [place] [place] [address] Dictated: 04/22/161799 Transcribed: 04/22/161799 JA Printed Date/Time: [~ rep prt dt]/[~ rep prt tm] [~ rep ct labl] - [~ rep ct ivnm] Patient: SHLOMO BROWN Address1: [address] [place] [address] [address] [facility] Rec: [id number] Address2: Acct ID: [id number] [facility] Zip: [place] [address] Date: 1935 Sex: M Room/Bed: [facility] Ref Phy: Lilly Holguin, SC: C.MED Att Phy: Stan Boss MD Report #: [id number] Anny Phy: Lilly Holguin DO Test: LUVQ Admit Phy: Stan Boss MD Roving Changer: JUDITH Interpreting Phy: Igor Urbina MD Diagnosis: ABDOMINAL DISTENSION,SOB Ordering Phy: Tawana Aguilera PA-C Service Date: 04/22/16 Admit Date: 04/22/1701/12/17 MNE: [id number] CONF: DICTATED BY: Igor Urbina MD]] CC: Tawana Aguilera PA-C Ricotta, Cara M., DO Zayets, Stanislav MD Endcc: [~ rep ct add3]] NUCLEAR MEDICINE VENTILATION/PERFUSION SCAN CLINICAL HISTORY: Shortness of breath. Elevated d-dimer. COMPARISON: Chest radiograph April 22, 2016. TECHNIQUE: For the ventilation portion of this exam, 31 mCi of DTPA was inhaled at 5:20 PM on April 22, 2016. Immediately following inhalation, imaging of the chest was carried out in the anterior, posterior, left lateral, right lateral, LPO, RPO, XUAN and COLEMAN projections. For the perfusion portion of exam, 5.5 mCi of technetium 99m MAA was injected IV at 6:15 PM on April 22, 2016. Immediately following injection, imaging of the chest was carried out in the same projections. FINDINGS: There is central radiotracer deposition on the ventilation portion of this exam which suggests chronic lung disease. A photopenic defect projecting over the left upper hemithorax is due to the pacemaker. No mismatched defects are identified on this exam. This study is considered low probability for pulmonary embolus. IMPRESSION: Low probability for pulmonary embolus. Electronically signed by: Igor Urbina M.D. 04/22/2016 6:01 PM Dictated Date/Time: 04/22/2016 6:00 PM The status of this report is Signed. Draft = Not yet reviewed or approved by Radiologist. Signed = Reviewed and approved by Radiologist. <AttendingPhy>Stan Boss MD</AttendingPhy> <FamilyPhy>Lilly Holguin DO </FamilyPhy> <PrimaryPhy>Lilly Holguin DO</PrimaryPhy> <UnitNumber> [id number]</UnitNumber> <VisitNumber>[id number]</VisitNumber> <PatientName> KEVINSHLOMO</PatientName> <DateOfBirth>1935</DateOfBirth> <Location> C.MED</Location> <ServiceDate>04/22/16</ServiceDate> <MNE>ESINDI</MNE> < OrderingPhy>Tawana Aguilera PA-C</OrderingPhy> <OrderingPhyMNE>f rep ord dr bullock< /OrderingPhyMNE> <DictatingPhyMNE>f rep dict dr bullock</DictatingPhyMNE> <CCListMNE >f rep ct massiele</CCListMNE> <AdmittingPhyMNE>f pt admit dr bullock</AdmittingPhyMNE> < AttendingPhyMNE>f pt attend dr bullock</AttendingPhyMNE> <ConsultingPhyMNE>f pt consult dr bullock</ConsultingPhyMNE> <FamilyPhyMNE>f pt fam dr bullock</FamilyPhyMNE> <OtherPhyMNE>f pt other dr bullock</OtherPhyMNE> < PrimaryPhyMNE>f pt prim care dr bullock</PrimaryPhyMNE> <ReferringPhyMNE>f pt referring dr bullock</ReferringPhyMNE> Patient Name: SHOLMO BROWN Unit Number: [id number] Dictated: 04/22/162129 Transcribed: 04/22/162129 JA Printed Date/Time: [~ rep prt dt]/[~ rep prt tm] [~ rep ct labl] - [~ rep ct ivnm] [facility] [place] [place] [address] Dictated: 04/22/162129 Transcribed: 04/22/162129 JA Printed Date/Time: [~ rep prt dt]/[~ rep prt tm] [~ rep ct labl] - [~ rep ct ivnm] Patient: SHLOMO BROWN Address1: [address] [place] [address] [address] [facility] Rec: [id number] Address2: Acct ID: [id number] [facility] Zip: [place] [address] Date: 1935 Sex: M Room/Bed: [facility] Ref Phy: Lilly Holguin DO SC: C.MED Att Phy: Stan Boss MD Report #: [id number] Anny Phy: Lilly Holguin DO Test: VDLEU Admit Phy: Stan Boss MD Roving Changer: GENIA Interpreting Phy: Igor Urbina MD Diagnosis: ABDOMINAL DISTENSION,SOB Ordering Phy: Tawana Aguilera PA-C Service Date: 04/22/16 Admit Date: 04/22/1701/12/17 MNE: PWRSCRIBE CONF: DICTATED BY: Igor Urbina MD]] CC: Tawana Aguilera ., Lilly Mace DO Zayets, Stanislav MD Endcc: [~ rep ct add3]] RIGHT LOWER EXTREMITY VENOUS DOPPLER CLINICAL HISTORY: Edema and erythema. COMPARISON STUDY: Right lower extremity venous Doppler February 16, 2016. TECHNIQUE: Sonography of the deep venous system of the right lower extremity was performed. Compression and augmentation were evaluated. FINDINGS: The right common femoral, superficial femoral and popliteal veins were compressible. Augmentation was normal. Flow was shown within the deep calf vessels although the calf vessels were suboptimally assessed due to lower extremity edema. IMPRESSION: No evidence of deep venous thrombus within the right lower extremity. Electronically signed by: Igor Uribna M.D. 04/22/2016 9:31 PM Dictated Date/Time: 04/22/2016 9:30 PM The status of this report is Signed. Draft = Not yet reviewed or approved by Radiologist. Signed = Reviewed and approved by Radiologist. <AttendingPhy>Stan Boss MD</AttendingPhy> <FamilyPhy>Lilly Holguin DO </FamilyPhy> <PrimaryPhy>Lilly Holguin, </PrimaryPhy> <UnitNumber> [id number]</UnitNumber> <VisitNumber>[id number]</VisitNumber> <PatientName> SHLOMO BROWN</PatientName> <DateOfBirth>1935</DateOfBirth> <Location> [facility]</Location> <ServiceDate>04/22/16</ServiceDate> <MNE>ESINDI</MNE> < OrderingPhy>Tawana Aguilera PA-C</OrderingPhy> <OrderingPhyMNE>f rep ord dr bullock< /OrderingPhyMNE> <DictatingPhyMNE>f rep dict dr bullock</DictatingPhyMNE> <CCListMNE >f rep ct mne</CCListMNE> <AdmittingPhyMNE>f pt admit dr bullock</AdmittingPhyMNE> < AttendingPhyMNE>f pt attend dr bullock</AttendingPhyMNE> <ConsultingPhyMNE>f pt consult dr bullock</ConsultingPhyMNE> <FamilyPhyMNE>f pt fam dr bullock</FamilyPhyMNE> <OtherPhyMNE>f pt other dr bullock</OtherPhyMNE> < PrimaryPhyMNE>f pt prim care dr bullock</PrimaryPhyMNE> <ReferringPhyMNE>f pt referring dr bullock</ReferringPhyMNE> (Tawana Aguilera ., ALLEN) Assessment and Plan 80 y/o male with a history of CHF, CKD stage III, DM II, HTN, HLD, a-fib, BPH, anemia and h/o left left amputation who presented to the ED on 04/22 with shortness of breath, non-productive cough, weakness and fatigue x 3 days. Recently stopped Pradaxa about 1 month ago due to bleeding issues. Also c/o worsening abdominal distention. Moving bowels. CXR shows likely atelectasis right base. EKG 66 bpm, ventricular paced rhythm. D-dimer elevated at 1560. Elevated creatinine above baseline at 2.2. VSS, pt not tachycardic or hypoxic on room air. Shortness of breath, recently stopped anticoagulation -Admit to med/surg as he is stable and non-hypoxic -Elevated creatinine, contrast contraindicated for CTA -V/Q scan to r/o PE, although given absence of tachycardia and hypoxia, this seems unlikely. VQ scan shows low probability of PE -Doppler U/S RLE negative for DVT Acute on chronic diastolic CHF--pt has gained about 15 kg since last admission in January 2016 -Abdominal distention--gradually worsening over last month -CT abd/pelvis w/o contrast shows ascites, anasarca and small bilateral pleural effusions L>R -Cardiology consulted, appreciate recs -Echocardiogram ordered -Start spironolactone 25 mg PO qd, one dose now -Interrogate pacemaker -Recheck TSH -Continue Lasix 160 mg PO qd and metolazone 2.5 mg PO 2x/week (Mondays and ) -Continue KCl 100 mEq PO 2x/week (Mondays and ) Acute kidney injury on CKD stage III--baseline creatinine around 1.7 -Creatinine upon arrival 2.2, pt had been given Lasix 40 mg IV in ED -Repeat creatinine 2.4 on 04/23 Venous stasis ulcers--pt follows up at a wound clinic. Wound culture on 04/16 show PCN/cephalosporin sensitive staph aureus. Pt. started on Keflex as an outpatient 2 days ago. -Keflex 500 mg PO BID x 8 days, renally dosed Diabetes mellitus type 2--Last HgbA1c checked 10/11/15 was 7.1 -Lantus 20 units SC BID -Insulin sliding scale -Check BSGs q ac and qhs -Repeat HgbA1c 6.0 HTN--stable -Continue Lopressor 25 mg PO BID HLD -Continue simvastatin 40 mg PO qd DVT prophylaxis -Heparin 5000 units SC q12h -EVELINE pitt and SCDs Code Status -Level V, DO NOT RESUSCITATE (Tawana Aguilera ., PA-C) Attending Attestation: Pt seen/examined, chart reviewed, care plan d/w PA Tawana Aguilera. I agree w/ the guallpa components of her documentation. Pt with ongoing dyspnea but no orthopnea. "I can't take a deep breath" he states. Some cough. c/o abdominal and LE swelling. VSS, no fever gen - obese, NAD neck - JVD present heart - RRR, s1, s2, 2/6 systolic murmur LSB lungs - decreased BS bases, no wheeze/rales abd - distended, BS+ ext - 3+ pitting edema extending up to the calves; pulses 2+ b/l labs - Cr 2.4 A/P: 1. dyspnea - suspect 2nd to CHF as well as restriction caused by significant abdominal girth 2. suspected acute/chronic diastolic CHF; cannot r/o cor pulmonale as many of his findings on exam suggest right ventricular dysfunction 3. acute kidney injury in setting of CKD 3 agree with ongoing diuresis; add aldactone due to ascites no evidence of decompensated hypothyroidism, cirrhosis, or nephrotic syndrome as cause of volume overload state BMP in am due to #3 interrogate pacer cards consult appreciated Juanjo Torres MD (Juanjo Torres MD)
[2016-04-23 13:11] LABS: THYROID STIMULATING HORMONE 3.15 uIu/ml (0.300-4.500)
[2016-04-23] MEDS ORDERED: PERFLUTREN LIPID MICROSPHERE (DEFINITY) IV ONE (14:29)
[2016-04-23 15:31] VITALS: BP 134/79; PULSE 62; TEMP 36.5; O2SAT 96
[2016-04-23 16:00] VITALS: O2SAT 96
[2016-04-23] MEDS ORDERED: FUROSEMIDE INJ 120 MG in SYRINGE 0 ML IV ONE (16:00)
[2016-04-23] MEDS: FUROSEMIDE 80 MG TAB PO SCH (17:00)
--- NOTE | 2016-04-23 17:16 | ECHOCARDIOGRAM REPORT ---
*NOTICE TO RECEIVING LIBERTARIAN AGENCY This information is strictly Confidential and protected under [place] law. [place] law prohibits you from making any further disclosure of this information unless further disclosure is expressly permitted by the written consent of the person to whom it pertains or is authorized by law. A general authorization for the release of medical or other information is not sufficient for this purpose. Hospital accepts no responsibility if the information is made available to any other person, INCLUDING THE PATIENT. Interpretation Summary * Name: SHLOMO BROWN Study Date: 04/23/2016 01:06 PM BP: 94/58 mmHg * Patient Location: .[facility]\S\N281\S\2 HR: 62 * : 1935 (M/d/yyyy) Gender: Male Height: 71 in * Age: 80 yrs Ethnicity: [place] Weight: 285 lb * Ordering Physician: Tawana Aguilera * Referring Physician: Self, Referred * Performed By: Radha Robert RCS * * Reason For Study: CHF * BSA: 2.5 m2 * -- Conclusions -- * 1. Technically limited study even with the use of definity ultrasound contrast. * 2. Normal LV size wall thickness. * 3. Grossly normal LV function. EF 55-60%. Paradoxical septal motion consistent with conduction abnormality. * 4. RV not well visualized. Grossly normal size and function. * 5. No significant valvular pathology * 6. Mild pulmonary hypertension (Est. 35-40 mmHg, RA 8). * 7. Compared with prior study 10/12/2015: No significant change Procedure Details * A complete two-dimensional transthoracic echocardiogram was performed (2D, M-mode, Doppler and color flow Doppler). * The study was technically difficult. * There were technical limitations due to patient's supine positioning for imaging and body habitus * A contrast injection of Definity was performed to improve assessment of LV function. * Contrast was injected into an intravenous site in the left arm. * One vial of Definity ultrasound contrast was diluted in normal saline to a total volume of 10 ml. A total of '2' ml of solution was administered during imaging. * Lot # [id number] of Definity utilized for procedure. * Expiration date . * The attending nurse who injected the contrast agent was Anitha Rai RN. Left Ventricle * The left ventricle is grossly normal size. * There is normal left ventricular wall thickness. * Ejection Fraction = 55-60%. * Septal motion is consistent with conduction abnormality. Right Ventricle * The right ventricle is grossly normal size. * The right ventricle is not well visualized. * The right ventricular systolic function is qualitatively normal. Atria * Borderline left atrial enlargement. * Right atrium not well visualized. * No ASD detected; PFO is not assessed. Mitral Valve * The mitral valve leaflets appear thickened, but open well. * There is no mitral valve stenosis. * Significant mitral regurgitation is absent. Tricuspid Valve * The tricuspid valve is not well visualized, but is grossly normal. * There is no tricuspid stenosis. * There is mild tricuspid regurgitation. Aortic Valve * The aortic valve opens well. * The aortic valve is trileaflet. * No hemodynamically significant valvular aortic stenosis. * There is no significant aortic regurgitation. Pulmonic Valve * The pulmonic valve is not well seen, but is grossly normal. * The pulmonary valve is inadequately visualized, but the Doppler data is adequate for interpretation. * There is no pulmonic valvular stenosis. * Mild pulmonic valvular regurgitation. Great Vessels * The aortic root and proximal ascending aorta are normal sized. Pericardium/Pleural * There is no pericardial effusion. Great Vessels * IVC > 2.1, > 50% change with respiration MMode 2D Measurements and Calculations IVSd 0.97 cm IVSs 1.2 cm LVIDd 3.1 cm LVIDs 2.3 cm LVPWd 10 cm LVPWs 1.2 cm IVS/LVPW 0.98 FS 26.5 % EDV(Teich) 39.0 ml ESV(Teich) 18.2 ml EF(Teich) 53.3 % EDV(cubed) 30.8 ml ESV(cubed) 12.2 ml EF(cubed) 60.3 % % IVS thick 21.7 % % LVPW thick 20.1 % LV mass(C)d 85.8 grams LV mass(C)dI 35.0 grams/m\S\2 LV mass(C)s 76.1 grams LV mass(C)sI 31.0 grams/m\S\2 CO(Teich) 1.2 l/min CI(Teich) 0.51 l/min/m\S\2 SV(Teich) 20.8 ml SI(Teich) 8.5 ml/m\S\2 CO(cubed) 1.1 l/min CI(cubed) 0.46 l/min/m\S\2 SV(cubed) 18.6 ml SI(cubed) 7.6 ml/m\S\2 Ao root diam 3.8 cm Ao root area 11.5 cm\S\2 ACS 1.8 cm LA dimension 4.1 cm LA/Ao 1.1 LVAd ap4 29.3 cm\S\2 LVLd ap4 8.3 cm EDV(MOD-sp4) 85.0 ml LVAs ap4 22.4 cm\S\2 LVLs ap4 8.4 cm ESV(MOD-sp4) 48.0 ml EF(MOD-sp4) 43.5 % LVAd ap2 36.4 cm\S\2 LVLd ap2 8.8 cm EDV(MOD-sp2) 123.0 ml LVAs ap2 20.7 cm\S\2 LVLs ap2 7.1 cm ESV(MOD-sp2) 49.0 ml EF(MOD-sp2) 60.2 % CO(MOD-sp4) 2.2 l/min CI(MOD-sp4) 0.91 l/min/m\S\2 SV(MOD-sp4) 37.0 ml SI(MOD-sp4) 15.1 ml/m\S\2 CO(MOD-sp2) 4.4 l/min CI(MOD-sp2) 1.8 l/min/m\S\2 SV(MOD-sp2) 74.0 ml SI(MOD-sp2) 30.2 ml/m\S\2 Doppler Measurements and Calculations MV E max kim 67.9 cm/sec MV A max kim 22.8 cm/sec MV E/A 3.0 MV P1/2t max kim 84.6 cm/sec MV P1/2t 86.8 msec MVA(P1/2t) 2.5 cm\S\2 MV dec slope 285.3 cm/sec\S\2 Ao V2 max 97.1 cm/sec Ao max PG 3.8 mmHg Ao max PG (full) 0.97 mmHg LV V1 max PG 2.8 mmHg LV V1 max 83.7 cm/sec PA V2 max 77.7 cm/sec PA max PG 2.4 mmHg PI max kim 246.4 cm/sec PI max PG 24.3 mmHg PI dec slope 151.9 cm/sec\S\2 PI P1/2t 475.2 msec TR max kim 279.8 cm/sec
[2016-04-23 17:54] VITALS: BP 147/81
[2016-04-23 21:14] VITALS: BP 144/73; PULSE 58; PULSE 62
[2016-04-23] MEDS: SIMVASTATIN 40 MG TAB PO SCH (21:21)
[2016-04-23 23:40] VITALS: BP 115/65; PULSE 60; TEMP 36.6; O2SAT 96
[2016-04-24] VITALS: O2SAT 96
--- NOTE | 2016-04-24 07:12 | CARDIOLOGY CONSULTATION REPORT ---
DATE OF CONSULTATION: 04/23/2016 REASON FOR CONSULTATION: 1. Decompensated Diastolic CHF. 2. Chronic Atrial Fibrillation. 3. Ascites. HISTORY OF PRESENT ILLNESS: Mr. 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 He states that his abdomen feels so full and "that is what prevents me from taking a deeper breath". Additionally, he has developed some blistering of his right lower extremity secondary to the amount of edema. The patient offered no other complaints. He denies any chest pain, heaviness, tightness, or pressure. No neck, jaw, back, or arm pain. He denies any syncope, or near syncope. The patient continues to take oral Lasix 160 mg daily each evening, and also uses metolazone 2.5 mg every Saturday and before taking his evening Lasix dose. He generally gets a good diuretic response with this. MEDICATIONS: 1. Spironolactone 25 mg daily. 2. NovoLog sliding scale insulin. 3. Lantus insulin 20 units subcutaneous injection b.i.d. 4. Senokot 8.6 mg each morning. 5. Milk of magnesia 30 mL each day. 6. Metolazone 2.5 mg every Saturday and before Lasix dose. 7. KCL 100 mEq twice a week (on days that metolazone is used). 8. N'ICE lozenges. 9. Heparin 5000 units subcutaneus injection q. 12 hours. 10. Lopressor 25 mg b.i.d. 11. Zantac 150 mg b.i.d. 12. Simvastatin 40 mg at bedtime. 13. Keflex 500 mg b.i.d. 14. Furosemide 160 mg p.o. daily. 15. Tylenol p.r.n. 16. Maalox Max p.r.n. 17. MiraLax p.r.n. 18. Zofran p.r.n. 19. Colace 100 mg b.i.d. p.r.n. for constipation. ALLERGIES: SULFA DRUGS. PAST MEDICAL HISTORY: 1. Chronic diastolic CHF, followed in our heart failure clinic. 2. Chronic atrial fibrillation. 3. Status post pacemaker placement. 4. Chronic leg edema. 5. Chronic kidney disease. 6. History of tachybrady syndrome. 7. Hypertension. 8. Dyslipidemia. 9. Type 2 diabetes mellitus with multiple diabetic complications. 10. Mild carotid plaques. 11. Preserved LVEF on echocardiogram, 10/10/2015. It was a technically difficult study. 12. Diagnoses mentioned above. SOCIAL HISTORY: The patient is a chatterjee smoker. He is , lives alone and his retired. Very limited in his activities due to surgically absent left leg. He still gets around with a motorized scooter. He does not adhere to a low sodium diet. FAMILY HISTORY: Significant for CAD and myocardial infarction. PHYSICAL EXAMINATION: VITAL SIGNS: Temperature is 36.8 degrees Celsius, pulse is 64 and irregular, respiratory rate is 18 and unlabored, blood pressure is 94/58 and SpO2 is 94% on room air. I&O's minus 480 mL total. Body weight 129.3 kilograms. GENERAL: The patient is in no acute distress. HEENT: Head is atraumatic, normocephalic. EOMs intact. Sclerae are anicteric. Face is symmetric. No perioral cyanosis. Mucous membranes moist. NECK: Without thyromegaly or adenopathy. Jugular venous pressure is elevated, to the angle of the jaw sitting up right. CHEST AND LUNGS: With absent breath sounds in bilateral bases, occasional scattered crackles in bilateral lower lung mallory. CARDIOVASCULAR: S1 and S2 are slightly irregular, distant, without obvious murmur, gallop, or rub. PMI is nonpalpable. No lifts, heaves, or thrills. No abdominal aortic or renal bruits. ABDOMEN: Bowel sounds are present. Abdomen is distended, otherwise nontender. No guarding, rigidity, or rebound tenderness. EXTREMITIES: Left leg is surgically absent. Right leg is with +3 pitting edema to the level of the knee and distal thigh. Dressing over the right lower leg. NEUROLOGIC: The patient is awake, alert and oriented. Pleasant and cooperative. Answers questions appropriately. Speech is clear. Normal movement bilateral upper extremities. DATA: EKG on admission shows underlying atrial fibrillation with a ventricular paced rhythm, pacemaker induced LBBB pattern. Chest x-ray shows diminished lung volumes bilaterally with basilar opacity, atelectasis likely. Possibly small left pleural effusion. Venous duplex Doppler right lower extremity shows no evidence of DVT. 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 LABORATORY DATA: White blood cell count is 5.08, hemoglobin 10.7 g/dL, hematocrit 33.8%, platelet count is 109,000. Sodium is 141 mmol/L, potassium 4.7 mmol/L, BUN 56 mg/dL and creatinine is 2.40 mg/dL, random glucose 187 mg/dL. Troponin I is 0.019 ng/mL, proBNP 491 pg/mL, TSH is 3.150 uIU/mL. ASSESSMENT: 1. Ascites/anasarca, multifactorial. 2. Hypervolemia. 3. Diastolic congestive heart failure. 4. Chronic atrial fibrillation. 5. Tachybrady syndrome status post pacemaker placement. 6. Longstanding type 2 diabetes mellitus with multiple complications. 7. Chronic kidney disease. 8. Hypertension, controlled. 9. Right leg edema. PLAN: 1. The patient has evidence of hypervolemia, in particular he has an elevated jugular venous pressure to the angle of the jaw sitting upright. He also has extensive edema of the right lower extremity as well as ascites of the abdomen. 2. Suspect if we get him closer to euvolemic, he will likely perfuse his kidneys better, and should have an improvement in his creatinine. 3. Monitor daily I&O's, daily body weights. 4. Give single dose of IV Lasix 120 mg now. 5. Continue shelter Lopressor. 6. Continue spironolactone. 7. Monitor daily laboratories. 8. We have reiterated the importance of a low sodium diet. 9. Continue shelter statin medication. 10. We will continue to follow closely. [facility]
[2016-04-24 07:53] VITALS: BP 109/61; PULSE 61; TEMP 36.3; O2SAT 93
[2016-04-24 07:56] LABS: HEMATOCRIT 34.7 % (42-52); MEAN CELL VOLUME 76.8 fL (80-100); MEAN CORPUSCULAR HEMOGLOBIN 24.3 pg (25-34); MEAN CORPUSCULAR HGB CONC 31.7 g/dl (32-36); MEAN PLATELET VOLUME 9.6 fL (7.4-10.4); PLATELET COUNT 106 K/uL (130-400); RED BLOOD COUNT 4.52 M/uL (4.7-6.1); WHITE BLOOD COUNT 4.92 K/uL (4.8-10.8)
[2016-04-24 08:33] LABS: BUN/CREATININE RATIO 22.8 (10-20); CALCIUM 8.8 mg/dl (8.5-10.1); CREATININE 2.3 mg/dl (0.60-1.40); MAGNESIUM 2.8 mg/dl (1.8-2.4); POTASSIUM 3.6 mmol/L (3.5-5.1)
[2016-04-24] MEDS: HEPARIN SOD 5000 UNIT/0.5 ML CARP SQ SCH ×2 (09:00→20:38)
[2016-04-24] MEDS ORDERED: POTASSIUM CHLORIDE 20 MEQ TABCR PO ONE (09:00)
[2016-04-24] MEDS: METOPROLOL TARTRATE 25 MG TAB PO SCH ×2 (09:09→20:27)
[2016-04-24] MEDS: SPIRONOLACTONE 25 MG TAB PO SCH (09:10)
[2016-04-24] MEDS: CEPHALEXIN MONOHYDRATE 500 MG CAP PO SCH ×2 (09:10→20:27)
[2016-04-24] MEDS: SENNA 8.6 MG TAB PO SCH (09:10)
[2016-04-24] MEDS: RANITIDINE HCL 150 MG TAB PO SCH ×2 (09:10→20:27)
[2016-04-24] MEDS: MAGNESIUM HYDROXIDE SUSP 30 ML UDC PO SCH (09:11)
[2016-04-24] MEDS ORDERED: FUROSEMIDE INJ 120 MG in SYRINGE 0 ML IV SCH (09:15)
[2016-04-24] MEDS: INSULIN ASPART 100 UNITS/ML 3 ML PEN SC SCH ×4 (09:15→20:36)
[2016-04-24] MEDS: INSULIN GLARGINE SOLOSTAR 100 UNITS/ML 3 ML PEN SC SCH ×2 (09:15→20:29)
--- NOTE | 2016-04-24 09:21 | CARDIOLOGY PROGRESS NOTE ---
DATE: 04/24/2016 HISTORY OF PRESENT ILLNESS: Mr. Juan was admitted with acute on chronic diastolic CHF, ascites/anasarca after having progressive cough, shortness of breath, inability to take a deep breath, progressive right leg edema, and abdominal distention and bloating. We gave him an injection of Lasix 120 mg last evening and he had a good diuretic response with it. Took off a total of 1.2 liters yesterday. His kidney function has improved since yesterday as well. The patient states his abdomen is slightly less distended, and he may have an improvement in his breathing. He continues to have leg edema and feels somewhat bloated most of the time. He offers no other complaints. He denies any chest pain, heaviness, tightness, or pressure. No neck, jaw, back, or arm pain. No palpitations, syncope, or near syncope. PHYSICAL EXAMINATION: VITAL SIGNS: Temperature is 36.3 degree Celsius, pulse 60 and regular, respiratory rate is 18 and unlabored, blood pressure is 109/61. SpO2 is 93% on room air. I&O -1200 mL total. Body weight is pending today. GENERAL: The patient is in no acute distress. HEENT: Head is atraumatic, normocephalic. EOMs intact. Sclerae are anicteric. Facies symmetric. No perioral cyanosis. Mucous membranes moist. NECK: Without thyromegaly or adenopathy. Jugular venous pressure remains elevated to the angle of the jaw sitting upright. CHEST AND LUNGS: With absent breath sounds in the extreme bilateral bases, occasional crackles in the bilateral lower lung mallory. CARDIOVASCULAR SYSTEM: S1 and S2 are slightly irregular, distant, without obvious murmur, gallop or rub. PMI is nonpalpable. No lifts, heaves, or thrills. No abdominal, aortic or renal bruits. ABDOMEN: Bowel sounds are present. Abdomen is distended. No guarding or rigidity. EXTREMITIES: +3 pitting edema to the level of the proximal tibia on the right. The left leg is surgically absent. NEUROLOGIC: The patient is awake, alert and oriented. Pleasant and cooperative. Answers questions appropriately. Speech is clear. Normal movement in bilateral upper extremities. LABORATORIES: White blood cell count is 4.92. Hemoglobin 11.0 g/dL, hematocrit 34.7%, platelet count is 106,000. Sodium is 141 mmol/L, potassium 3.6 mmol/L. BUN 52 mg/dL, creatinine 2.30 mg/dL. Random glucose 139 mg/dL. Magnesium level was 2.8 mg/dL. Echocardiogram performed on 04/23/2016 reveals the followin. Normal LV size and wall thickness. 2. Grossly normal LV systolic function, LVEF 55% to 60%. Paradoxical septal motion consistent with conduction abnormality. 3. RV not well visualized, grossly normal in size and function. 4. No significant valvular abnormalities. 5. Mild pulmonary hypertension (estimated PASP 35-40 mmHg). ASSESSMENT: 1. Acute on chronic diastolic congestive heart failure manifested as ascites, abdominal distention, cough, shortness of breath, and progressive leg edema. 2. Chronic kidney disease. 3. Chronic atrial fibrillation. 4. Tachybrady syndrome, status post pacemaker placement. 5. No angina pectoris or anginal equivalent symptoms. 6. No signs or symptoms suggestive of stroke or mini stroke. PLAN: 1. Continue Lopressor 25 mg b.i.d. 2. Continue spironolactone 25 mg daily. 3. Continue IV Lasix 120 mg daily until the patient is euvolemic or his renal function declines. 4. Closely monitor daily I&O's, body weights. 5. Continue ad terminal makeup operator simvastatin. 6. Low sodium diet. 7. We will continue to follow. [facility]
[2016-04-24 15:30] VITALS: BP 145/76; PULSE 60; TEMP 36.5; O2SAT 95
[2016-04-24 16:00] VITALS: O2SAT 95
[2016-04-24] MEDS: FUROSEMIDE 80 MG TAB PO SCH (16:48)
[2016-04-24 20:25] VITALS: BP 131/73; PULSE 60
[2016-04-24] MEDS: SIMVASTATIN 40 MG TAB PO SCH (20:26)
[2016-04-24 23:54] VITALS: BP 150/84; PULSE 60; TEMP 36.4; O2SAT 95
--- NOTE | 2016-04-25 06:14 | Progress Note ---
Subjective Date of Service: late entry for visit Apr 24, 2016. Subjective Pt evaluation today including: conversation w/ patient, physical exam, chart review, lab review, conversation w/ planning consultant (cardiology), review of inpatient medication list Pain: none PO Intake: normal Voiding: no voiding problems dyspnea improved can take larger breaths peripheral edema improved feels better overall but "not quite back" to his normal Problem List Medical Problems: (1) Acute kidney injury Status: Acute (2) Acute pyelonephritis Status: Acute (3) Current use of exterminator helper anticoagulation Status: Acute (4) Dyspnea Status: Acute (5) GI bleed Status: Acute (6) GI bleed Status: Acute (7) Hypoglycemia Status: Acute (8) Hyponatremia Status: Acute (9) Renal insufficiency Status: Acute (10) Shortness of breath Status: Acute (11) Urinary tract infection Status: Acute Review of Systems Constitutional: No fever Respiratory: + dyspnea on exertion, No cough, No dyspnea at rest Cardiac: + edema, No chest pain Abdomen: No pain Objective Vital Signs Date Time Temp Pulse Resp B/P Pulse Ox O2 Delivery O2 Flow Rate FiO2 04/25/16 00:00 Room Air 04/24/16 23:54 36.4 60 18 150/84 95 Room Air 04/24/16 20:25 60 131/73 04/24/16 20:00 Room Air 04/24/16 16:00 95 Room Air 04/24/16 15:30 36.5 60 18 145/76 95 Room Air 04/24/16 08:35 Room Air 04/24/16 07:53 36.3 61 18 109/61 93 Room Air Physical Exam General Appearance: no apparent distress, + obese ENT: pharynx normal Neck: + JVD Respiratory/Chest: no respiratory distress, no accessory muscle use, + decreased breath sounds (bases), + crackles (some, bases) Cardiovascular: regular rate, rhythm, no gallop, no murmur Abdomen: normal bowel sounds, non tender, soft, no organomegaly, + distended ( with ascites) Extremities: + pedal edema (right leg, about 2+ but improved), + pertinent finding (left AKA) Neurologic/Psychiatric: alert, oriented x 3 Skin: no rash Laboratory Results Last 24 Hours Test 04/24/16 07:30 04/24/16 07:47 04/24/16 11:29 04/24/16 16:47 White Blood Count 4.92 K/uL Red Blood Count 4.52 M/uL Hemoglobin 11.0 g/dL Hematocrit 34.7 % Mean Corpuscular Volume 76.8 fL Mean Corpuscular Hemoglobin 24.3 pg Mean Corpuscular Hemoglobin Concent 31.7 g/dl RDW Standard Deviation 60.2 fL RDW Coefficient of Variation 21.5 % Platelet Count 106 K/uL Mean Platelet Volume 9.6 fL Sodium Level 141 mmol/L Potassium Level 3.6 mmol/L Chloride Level 102 mmol/L Carbon Dioxide Level 27 mmol/L Anion Gap 12.0 mmol/L Blood Urea Nitrogen 52 mg/dl Creatinine 2.30 mg/dl Est Creatinine Clear Calc Drug Dose 35.7 ml/min Estimated GFR () 30.2 Estimated GFR (Non- 26.0 BUN/Creatinine Ratio 22.8 Random Glucose 137 mg/dl Calcium Level 8.8 mg/dl Magnesium Level 2.8 mg/dl Bedside Glucose 139 mg/dl 216 mg/dl 114 mg/dl Test 04/24/16 20:03 04/25/16 04:44 Bedside Glucose 124 mg/dl Assessment and Plan 80yo male: 1. acute/chronic diastolic CHF - improved. Net negative fluid balance each day. Cr improved/stable. Lasix 120mg daily IV. Aldactone 25mg daily. Continue beta radha; consider changing short acting over to toprol xl. 2. acute kidney injury - likely due to #2 - improving. 3. CKD stage 3 - baseline creatinine high 1's. 4. microcytic anemia - iron studies in March suggestive of low Fe. Start ferrous sulfate 325mg BID. 5. PAD s/p amputation left leg - noted. 6. DVT proph - heparin. 7. h/o a. fib/flutter - s/p pacemaker placement. 8. T2DM - controlled; cont current insulin regimen. 9. HTN - controlled with current regimen. 10. hyperlipidemia - statin. PT, OT evals for deconditioning progressing overall Continued [facility] stay due to: ambulation difficulties, multiple IV medications needed Discharge planning: uncertain
[2016-04-25 06:43] LABS: HEMATOCRIT 34.2 % (42-52); MEAN CELL VOLUME 77.2 fL (80-100); MEAN CORPUSCULAR HEMOGLOBIN 24.2 pg (25-34); MEAN CORPUSCULAR HGB CONC 31.3 g/dl (32-36); MEAN PLATELET VOLUME 9.4 fL (7.4-10.4); PLATELET COUNT 103 K/uL (130-400); RED BLOOD COUNT 4.43 M/uL (4.7-6.1); WHITE BLOOD COUNT 5.16 K/uL (4.8-10.8)
[2016-04-25 07:18] VITALS: BP 149/85; PULSE 61; TEMP 36.5; O2SAT 96
[2016-04-25 07:22] LABS: CALCIUM 8.5 mg/dl (8.5-10.1); CREATININE 2.2 mg/dl (0.60-1.40); POTASSIUM 3.5 mmol/L (3.5-5.1)
[2016-04-25] MEDS: MAGNESIUM HYDROXIDE SUSP 30 ML UDC PO SCH (07:26)
[2016-04-25] MEDS: SENNA 8.6 MG TAB PO SCH (07:26)
[2016-04-25] MEDS: RANITIDINE HCL 150 MG TAB PO SCH ×2 (07:26→21:14)
[2016-04-25] MEDS: METOPROLOL TARTRATE 25 MG TAB PO SCH ×2 (07:27→21:14)
[2016-04-25] MEDS: SPIRONOLACTONE 25 MG TAB PO SCH (07:27)
[2016-04-25] MEDS: CEPHALEXIN MONOHYDRATE 500 MG CAP PO SCH ×2 (07:27→21:15)
[2016-04-25] MEDS ORDERED: POTASSIUM CHLORIDE 20 MEQ TABCR PO ONE (08:30)
[2016-04-25] MEDS ORDERED: FUROSEMIDE INJ 120 MG in SYRINGE 0 ML IV ONE (08:30)
[2016-04-25] MEDS: FERROUS SULFATE 325 MG TAB PO SCH ×2 (08:37→17:18)
[2016-04-25] MEDS: INSULIN GLARGINE SOLOSTAR 100 UNITS/ML 3 ML PEN SC SCH ×2 (08:40→21:13)
[2016-04-25] MEDS: INSULIN ASPART 100 UNITS/ML 3 ML PEN SC SCH ×4 (08:40→21:12)
--- NOTE | 2016-04-25 09:14 | CARDIOLOGY PROGRESS NOTE ---
DATE: 04/25/2016 DATE: 04/25/2016. HISTORY OF PRESENT ILLNESS: Mr. Juan is currently being seen in room 281 bed 2. His shortness of breath has improved, although it is not at baseline. He continues to have abdominal distention and right leg edema, however these are improving as well. The patient continues to have a negative fluid balance, and his renal function appears to be improving. The patient offers no other complaints. He denies any chest pain, heaviness, tightness, or pressure. No neck, jaw, back or arm pain. He denies any palpitations, tachypalpitations, palpitations, syncope, or near syncope. PHYSICAL EXAMINATION: VITAL SIGNS: Temperature is 36.5 degrees Celsius, pulse 60 and regular, respiratory rate is 16 and unlabored, blood pressure is 149/85 and SPO2 is 96% on room air. GENERAL: The patient is in no acute distress. HEAD, EYES, EARS, NOSE, AND THROAT: Head is atraumatic, normocephalic. EOMs intact. Sclerae are anicteric. Facies symmetric. No perioral cyanosis. Mucous membranes moist. NECK: Without thyromegaly or adenopathy. Jugular venous pressure is elevated, approximately half way to the angle of the jaw. CHEST AND LUNGS: With diminished breath sounds in bilateral bases, occasional crackles in bilateral lower lung mallory. CARDIOVASCULAR: S1 and S2 are slightly irregular, distant, without obvious murmur, gallop or rub. PMI is nonpalpable. No lifts, heaves, or thrills. No abdominal aortic or renal bruits. ABDOMINAL EXAMINATION: Bowel sounds present. Abdomen is distended, although not as tense. No guarding or rigidity. EXTREMITIES: With +2 pitting edema to the mid tibia. There is dressing on the right lower extremity. NEUROLOGIC EXAMINATION: The patient is awake, alert and oriented. Pleasant and cooperative. Answers questions appropriately. Speech is clear. I&O's -2750 mL total. Body weight is not recorded. LABORATORIES: White blood cell count is 5.16. Hemoglobin 10.7 g/dl, hematocrit 34.2%, platelet count 103,000. Sodium is 140 mmol/L, potassium 3.5 mmol/L. BUN 51, creatinine 2.20 mg/dL. Random glucose 147 mg/dL. ASSESSMENT: 1. Acute on chronic diastolic congestive heart failure manifested as ascites, abdominal distention, cough, shortness of breath, and progressive right leg edema. 2. Chronic kidney disease, creatinine is improving. 3. Chronic atrial fibrillation, rate controlled. 4. Tachybrady syndrome, status post pacemaker placement. 5. No angina pectoris or anginal equivalent symptoms. 6. No signs or symptoms suggestive of stroke or mini stroke. PLAN: 1. Continue Lopressor 25 mg b.i.d. 2. Continue Spironolactone 25 mg daily. 3. Continue IV Lasix 120 mg on a day to day basis until patient is euvolemic or his renal function begins to decline. 4. Continue to monitor daily body weights, I's and O's. 5. Continue snf Simvastatin. 6. I have reiterated the importance of a low sodium diet, not only in the hospital, but when he goes home as well. 7. We will continue to follow. [facility]
[2016-04-25] MEDS: HEPARIN SOD 5000 UNIT/0.5 ML CARP SQ SCH ×2 (12:17→21:00)
--- NOTE | 2016-04-25 13:31 | Hospitalist Progress Note ---
Hospitalist Progress Note Date of Service Apr 25, 2016. (Tawana Aguilera .ALLEN) Subjective Pt evaluation today including: conversation w/ patient, physical exam, chart review, lab review, conversation w/ fitness consultant (spoke with Patrick Tucker PA-C), review of inpatient medication list Pain: None PO Intake: Tolerating PO diet Voiding: no voiding problems The patient reports feeling well this morning. He states that his shortness of breath has improved since arrival but is still not back to his normal breathing. He also still complains of a non-productive cough which has remained the same. He thinks that his abdomen is somewhat less distended. He is tolerating a PO diet and urinating without difficulty. The patient denies fevers, chills, sweats, chest pain, palpitations, claudication, wheezing, nausea , vomiting, abdominal pain, dysuria, hematuria, urinary retention, paralysis, weakness, numbness and tingling. Additional Comments: See HPI for pertinent positives and negatives. All other systems reviewed and negative. (Tawana Aguilera .ALLEN) Objective Vital Signs Date Time Temp Pulse Resp B/P Pulse Ox O2 Delivery O2 Flow Rate FiO2 04/25/16 08:00 Room Air 04/25/16 07:18 36.5 61 20 149/85 96 Room Air 04/25/16 00:00 Room Air 04/24/16 23:54 36.4 60 18 150/84 95 Room Air 04/24/16 20:25 60 131/73 04/24/16 20:00 Room Air 04/24/16 16:00 95 Room Air 04/24/16 15:30 36.5 60 18 145/76 95 Room Air (Tawana Aguilera PA-C) Physical Exam General Appearance: WD/WN, no apparent distress, + obese Eyes: normal inspection, PERRL, EOMI ENT: normal ENT inspection, hearing grossly normal, pharynx normal Neck: supple, trachea midline, + JVD Respiratory/Chest: lungs clear, normal breath sounds, no respiratory distress, + decreased breath sounds Cardiovascular: regular rate, rhythm, no gallop, no murmur Abdomen: normal bowel sounds, soft, + tenderness (mild diffuse tenderness without guarding) Extremities: + pedal edema (3+ pitting pedal edema RLE), + swelling (2+ pitting edema RLE up to knee), + pertinent finding (erythema in RLE improved, blistering with wounds) Neurologic/Psychiatric: alert, normal mood/affect, oriented x 3 Skin: normal color, warm/dry, no rash (Tawana Aguilera ., PA-C) Laboratory Results Last 24 Hours Test 04/24/16 16:47 04/24/16 20:03 04/25/16 06:10 04/25/16 07:21 Bedside Glucose 114 mg/dl 124 mg/dl 147 mg/dl White Blood Count 5.16 K/uL Red Blood Count 4.43 M/uL Hemoglobin 10.7 g/dL Hematocrit 34.2 % Mean Corpuscular Volume 77.2 fL Mean Corpuscular Hemoglobin 24.2 pg Mean Corpuscular Hemoglobin Concent 31.3 g/dl RDW Standard Deviation 60.3 fL RDW Coefficient of Variation 21.2 % Platelet Count 103 K/uL Mean Platelet Volume 9.4 fL Sodium Level 140 mmol/L Potassium Level 3.5 mmol/L Chloride Level 101 mmol/L Carbon Dioxide Level 30 mmol/L Anion Gap 9.0 mmol/L Blood Urea Nitrogen 51 mg/dl Creatinine 2.20 mg/dl Est Creatinine Clear Calc Drug Dose 37.3 ml/min Estimated GFR () 31.8 Estimated GFR (Non- 27.5 BUN/Creatinine Ratio 23.0 Random Glucose 149 mg/dl Calcium Level 8.5 mg/dl Test 04/25/16 11:43 Bedside Glucose 148 mg/dl (Tawana Aguilera ., PA-C) Assessment and Plan 80 y/o male with a history of CHF, CKD stage III, DM II, HTN, HLD, a-fib, BPH, anemia and h/o left left amputation who presented to the ED on 04/22 with shortness of breath, non-productive cough, weakness and fatigue x 3 days. Recently stopped Pradaxa about 1 month ago due to bleeding issues. Also c/o worsening abdominal distention. Moving bowels. CXR shows likely atelectasis right base. EKG 66 bpm, ventricular paced rhythm. D-dimer elevated at 1560. Elevated creatinine above baseline at 2.2. VSS, pt not tachycardic or hypoxic on room air. Shortness of breath, recently stopped anticoagulation -Admit to med/surg as he is stable and non-hypoxic -Elevated creatinine, contrast contraindicated for CTA -V/Q scan to r/o PE, although given absence of tachycardia and hypoxia, this seems unlikely. VQ scan shows low probability of PE -Doppler U/S RLE negative for DVT Acute on chronic diastolic CHF--pt has gained about 15 kg since last admission in January 2016 -Abdominal distention--gradually worsening over last month -CT abd/pelvis w/o contrast shows ascites, anasarca and small bilateral pleural effusions L>R -Cardiology consulted, appreciate recs: continue Lasix 120 mg IV qd, asses on day to day bases until euvolemic and as renal function allows -Echocardiogram shows paradoxical septal motion, consistent with conduction abnormality. Mild pulmonary HTN. No significant change form 10/2015 study. -Continue spironolactone 25 mg PO qd -TSH WNL Acute kidney injury on CKD stage III--stable. Baseline creatinine around 1.7 -Creatinine upon arrival 2.2, pt had been given Lasix 40 mg IV in ED -Repeat creatinine 2.2 on 04/25 Venous stasis ulcers--pt follows up at a wound clinic. Wound culture on 04/16 show PCN/cephalosporin sensitive staph aureus. Pt. started on Keflex as an outpatient 2 days ago. -Keflex 500 mg PO BID x 8 days, renally dosed Diabetes mellitus type 2--Last HgbA1c checked 10/11/15 was 7.1 -Lantus 20 units SC BID -Insulin sliding scale -Check BSGs q ac and qhs -Repeat HgbA1c 6.0 HTN--stable -Continue Lopressor 25 mg PO BID HLD -Continue simvastatin 40 mg PO qd DVT prophylaxis -Heparin 5000 units SC q8h -EVELINE pitt and SCDs Code Status -Level V, DO NOT RESUSCITATE (Tawana Aguilera ., PASarahy) Attending Attestation: Pt seen/examined, chart reviewed, care plan d/w GEETHA Aguilera. I agree w/ the guallpa components of her documentation. Pt with less dyspnea. c/o "difficulty chewing my food - I chew and chew and chew and then I lose my desire to eat it" Denies odynophagia or dysphagia states he had EGD in the fall that was normal denies change in voice, hoarseness or anterior neck pain VSS, afebrile gen - obese neck - no masses, no JVD, no goiter heart - RRR, s1, s2 lungs - rales left base only abd - distended but less so than yesterday; BS+, no HSM ext - right leg edema about 1-2+, left leg AKA labs Cr 2.2 A/P: 1. acute/chronic diastolic CHF - improved. Lasix 120mg daily IV again today. Aldactone 25mg daily. Continue beta radha; consider changing short acting over to toprol xl. 2. acute kidney injury - likely due to #2 - stable. 3. CKD stage 3 - baseline creatinine high 1's. 4. microcytic anemia - iron studies in March suggestive of low Fe and thus recommend ferrous sulfate 325mg BID. 5. PAD s/p amputation left leg - noted. 6. DVT proph - heparin. 7. h/o a. fib/flutter - s/p pacemaker placement. 8. T2DM - controlled; cont current insulin regimen. 9. HTN - controlled with current regimen. 10. hyperlipidemia - statin. 11. difficulty chewing / ?dysphagia - records show NORMAL EGD in 01/2016. change diet to [facility] soft with MOIST foods. PT, OT evals for deconditioning Juanjo Torres MD (Juanjo Torres MD)
[2016-04-25 16:03] VITALS: BP 127/68; PULSE 59; TEMP 36.8; O2SAT 94
[2016-04-25] MEDS: FUROSEMIDE 80 MG TAB PO SCH (17:18)
[2016-04-25 21:10] VITALS: BP 122/74; PULSE 62
[2016-04-25] MEDS: SIMVASTATIN 40 MG TAB PO SCH (21:14)
[2016-04-26] VITALS (7 sets, daily range): BP systolic 92–123; BP diastolic 52–72; PULSE 59–60; TEMP 36.4–36.9; O2SAT 94–95
[2016-04-26] MEDS: ALUMINUM/MAGNESIUM/SIMETH (MAALOX MAX) 30 ML UDC PO PRN (02:49)
[2016-04-26] MEDS ORDERED: CALCIUM CARBONATE 500 MG CHEWABLE PO PRN (03:00)
[2016-04-26] MEDS: HEPARIN SOD 5000 UNIT/0.5 ML CARP SQ SCH ×3 (04:36→21:00)
[2016-04-26] MEDS: POTASSIUM CHLORIDE 20 MEQ TABCR PO SCH (07:45)
[2016-04-26] MEDS: METOLAZONE 2.5 MG TAB PO SCH (07:46)
[2016-04-26] MEDS: SPIRONOLACTONE 25 MG TAB PO SCH (07:46)
[2016-04-26] MEDS: CEPHALEXIN MONOHYDRATE 500 MG CAP PO SCH ×2 (07:46→21:35)
[2016-04-26] MEDS: FERROUS SULFATE 325 MG TAB PO SCH ×2 (07:46→18:50)
[2016-04-26] MEDS: RANITIDINE HCL 150 MG TAB PO SCH ×2 (07:47→21:36)
[2016-04-26] MEDS: METOPROLOL TARTRATE 25 MG TAB PO SCH ×2 (07:47→21:36)
[2016-04-26] MEDS: SENNA 8.6 MG TAB PO SCH (07:49)
[2016-04-26] MEDS: POLYETHYLENE (MIRALAX) 17 GM PACK PO SCH ×2 (07:49→21:00)
[2016-04-26] MEDS: MAGNESIUM HYDROXIDE SUSP 30 ML UDC PO SCH (07:49)
[2016-04-26] MEDS: INSULIN ASPART 100 UNITS/ML 3 ML PEN SC SCH ×4 (08:05→21:46)
[2016-04-26] MEDS: INSULIN GLARGINE SOLOSTAR 100 UNITS/ML 3 ML PEN SC SCH ×2 (08:06→21:47)
[2016-04-26 08:20] LABS: HEMATOCRIT 36.7 % (42-52); MEAN CELL VOLUME 78.3 fL (80-100); MEAN CORPUSCULAR HEMOGLOBIN 24.7 pg (25-34); MEAN CORPUSCULAR HGB CONC 31.6 g/dl (32-36); MEAN PLATELET VOLUME 9.1 fL (7.4-10.4); PLATELET COUNT 107 K/uL (130-400); RED BLOOD COUNT 4.69 M/uL (4.7-6.1)
[2016-04-26 08:53] LABS: BUN/CREATININE RATIO 22.6 (10-20); CALCIUM 8.9 mg/dl (8.5-10.1); CREATININE 2.1 mg/dl (0.60-1.40); POTASSIUM 3.6 mmol/L (3.5-5.1)
[2016-04-26] MEDS ORDERED: FUROSEMIDE INJ 120 MG in SYRINGE 0 ML IV ONE (09:30)
--- NOTE | 2016-04-26 10:40 | Hospitalist Progress Note ---
Hospitalist Progress Note Date of Service Apr 26, 2016. (Tawana Aguilera ., CHRISC) Subjective Pt evaluation today including: conversation w/ patient, physical exam, chart review, lab review, review of inpatient medication list PO Intake: Reports frequent aspiration Voiding: no voiding problems Patient reports feeling well. He states that his shortness of breath is improved, but he still does not feel like his breathing is back at his baseline. He denies any shortness of breath currently. He still complains of a non-productive cough and occasional wheezing, but states that this is also improving. He reports some difficulty swallowing his food and states that his food and drink will often "go down the wrong pipe". The patient denies fevers, chills, sweats, chest pain, palpitations, claudication, nausea, vomiting, abdominal pain, dysuria, hematuria, urinary retention, paralysis, weakness, numbness and tingling. Additional Comments: See HPI for pertinent positives and negatives. All other systems reviewed and negative. (Tawana Aguilera ., GEETHA-C) Objective Vital Signs Date Time Temp Pulse Resp B/P Pulse Ox O2 Delivery O2 Flow Rate FiO2 04/26/16 07:47 36.9 60 18 92/52 94 Room Air 04/26/16 00:12 36.8 59 20 105/61 95 Room Air 04/26/16 00:00 Room Air 04/25/16 21:10 62 122/74 04/25/16 20:00 Room Air 04/25/16 16:03 36.8 59 127/68 94 Room Air 04/25/16 16:00 Room Air (Tawana Aguilera ., GEETHA-C) Physical Exam General Appearance: WD/WN, no apparent distress, + obese Eyes: normal inspection, PERRL, EOMI ENT: normal ENT inspection, hearing grossly normal, pharynx normal Neck: supple, no JVD, trachea midline Respiratory/Chest: lungs clear, normal breath sounds, no respiratory distress, + decreased breath sounds Cardiovascular: regular rate, rhythm, no gallop, no murmur Abdomen: normal bowel sounds, soft, + distended (mildly distended, much improved compared to admission), + tenderness (mild diffuse tenderness without guarding) Extremities: no calf tenderness, + swelling (1+ pitting edema in RLE up to knee , improved), + pertinent finding (erythema improving, dressed wounds, some tenderness with palpation) Neurologic/Psychiatric: alert, normal mood/affect, oriented x 3 Skin: normal color, warm/dry, no rash (Tawana Aguilera ., ALLEN) Laboratory Results Last 24 Hours Test 04/25/16 11:43 04/25/16 16:58 04/25/16 20:33 04/26/16 07:40 Bedside Glucose 148 mg/dl 136 mg/dl 164 mg/dl 116 mg/dl Test 04/26/16 08:10 White Blood Count 5.60 K/uL Red Blood Count 4.69 M/uL Hemoglobin 11.6 g/dL Hematocrit 36.7 % Mean Corpuscular Volume 78.3 fL Mean Corpuscular Hemoglobin 24.7 pg Mean Corpuscular Hemoglobin Concent 31.6 g/dl RDW Standard Deviation 60.6 fL RDW Coefficient of Variation 21.4 % Platelet Count 107 K/uL Mean Platelet Volume 9.1 fL Sodium Level 141 mmol/L Potassium Level 3.6 mmol/L Chloride Level 101 mmol/L Carbon Dioxide Level 29 mmol/L Anion Gap 11.0 mmol/L Blood Urea Nitrogen 47 mg/dl Creatinine 2.10 mg/dl Est Creatinine Clear Calc Drug Dose 39.1 ml/min Estimated GFR () 33.7 Estimated GFR (Non- 29.1 BUN/Creatinine Ratio 22.6 Random Glucose 124 mg/dl Calcium Level 8.9 mg/dl (Tawana Aguilera ., PA-C) Assessment and Plan 80 y/o male with a history of CHF, CKD stage III, DM II, HTN, HLD, a-fib, BPH, anemia and h/o left left amputation who presented to the ED on 04/22 with shortness of breath, non-productive cough, weakness and fatigue x 3 days. Recently stopped Pradaxa about 1 month ago due to bleeding issues. Also c/o worsening abdominal distention. Moving bowels. CXR shows likely atelectasis right base. EKG 66 bpm, ventricular paced rhythm. D-dimer elevated at 1560. Elevated creatinine above baseline at 2.2. VSS, pt not tachycardic or hypoxic on room air. Shortness of breath, recently stopped anticoagulation -Admit to med/surg as he is stable and non-hypoxic -Elevated creatinine, contrast contraindicated for CTA -V/Q scan to r/o PE, although given absence of tachycardia and hypoxia, this seems unlikely. VQ scan shows low probability of PE -Doppler U/S RLE negative for DVT Acute on chronic diastolic CHF--improving. Pt has gained about 15 kg since last admission in January 2016 -Abdominal distention--gradually worsening over last month prior to arrival -CT abd/pelvis w/o contrast shows ascites, anasarca and small bilateral pleural effusions L>R -Cardiology consulted, appreciate recs: continue Lasix 120 mg IV qd, assess on day to day bases until euvolemic and as renal function allows -Echocardiogram shows paradoxical septal motion, consistent with conduction abnormality. Mild pulmonary HTN. No significant change form 10/2015 study. -Continue spironolactone 25 mg PO qd -TSH WNL Acute kidney injury on CKD stage III--stable. Baseline creatinine around 1.7 -Creatinine upon arrival 2.2, pt had been given Lasix 40 mg IV in ED -Creatinine stable on 04/26 at 2.1 Venous stasis ulcers--pt follows up at a wound clinic. Wound culture on 04/16 show PCN/cephalosporin sensitive staph aureus. Pt. started on Keflex as an outpatient 2 days ago. -Keflex 500 mg PO BID x 8 days, renally dosed Diabetes mellitus type 2--Last HgbA1c checked 10/11/15 was 7.1 -Lantus 20 units SC BID -Insulin sliding scale -Check BSGs q ac and qhs -Repeat HgbA1c 6.0 HTN--stable -Continue Lopressor 25 mg PO BID HLD -Continue simvastatin 40 mg PO qd DVT prophylaxis -Heparin 5000 units SC q8h -EVELINE margaritae and SCDs Code Status -Level V, DO NOT RESUSCITATE Dispo -Patient lives alone, PT/OT ordered -PT recommend patient return home when medically stable, recommend home PT evaluation once d/c'd (Tawana Aguilera ., PA-C) Attending Attestation: Pt seen/examined, chart reviewed, care plan d/w GEETHA Aguilera. I agree w/ the guallpa components of her documentation except - patient had no tenderness on exam during my visit. Dyspnea continues to improve. Less abd distension. Dysphagia is better w/ modified diet. (mech soft) VSS, afebrile gen - obese neck - JVD present but improved from prior exams heart - RRR, s1, s2 lungs - decreased BS bases; no wheeze; no obvious rales abd - distended improved, nontender ext - right leg edema about 1+ - improved, left leg AKA labs Cr 2.1 A/P: 1. acute/chronic diastolic CHF - improving each day. Lasix 120mg daily IV again today. Aldactone 25mg daily. Continue beta radha; consider changing short acting over to toprol xl. 2. acute kidney injury - likely due to #2 - stable. 3. CKD stage 3 - baseline creatinine high 1's. 4. microcytic anemia - iron studies in March suggestive of low Fe and thus recommend ferrous sulfate 325mg BID. 5. PAD s/p amputation left leg - noted. 6. DVT proph - heparin. 7. h/o a. fib/flutter - s/p pacemaker placement. 8. T2DM - controlled. 9. HTN - controlled with current regimen. 10. hyperlipidemia - statin. 11. difficulty chewing / ?dysphagia - records show NORMAL EGD in 01/2016. changed diet to [facility] soft with MOIST foods. this has helped but still complaining. esophageal dysmotility? ask speech to see cont PT, OT Juanjo Torres MD (Juanjo Torres MD)
[2016-04-26] MEDS: FUROSEMIDE 80 MG TAB PO SCH (18:50)
[2016-04-26] MEDS: SIMVASTATIN 40 MG TAB PO SCH (21:36)
[2016-04-27] VITALS: BP 117/65; PULSE 76; TEMP 36.9; O2SAT 95
[2016-04-27] MEDS: HEPARIN SOD 5000 UNIT/0.5 ML CARP SQ SCH ×3 (05:00→20:56)
[2016-04-27] MEDS: ALUMINUM/MAGNESIUM/SIMETH (MAALOX MAX) 30 ML UDC PO PRN (06:03)
[2016-04-27 07:14] LABS: BUN/CREATININE RATIO 20.8 (10-20); CALCIUM 8.9 mg/dl (8.5-10.1); CREATININE 2.2 mg/dl (0.60-1.40); POTASSIUM 3.6 mmol/L (3.5-5.1)
[2016-04-27] MEDS ORDERED: POTASSIUM CHLORIDE 10 MEQ TABCR PO STA (07:52)
[2016-04-27 07:56] VITALS: BP 120/64; PULSE 60; TEMP 36.9; O2SAT 95
[2016-04-27] MEDS ORDERED: FUROSEMIDE INJ 120 MG in SYRINGE 0 ML IV ONE (08:00)
[2016-04-27 08:40] VITALS: O2SAT 95
[2016-04-27] MEDS: SPIRONOLACTONE 25 MG TAB PO SCH (08:49)
[2016-04-27] MEDS: CEPHALEXIN MONOHYDRATE 500 MG CAP PO SCH ×2 (08:49→20:01)
[2016-04-27] MEDS: FERROUS SULFATE 325 MG TAB PO SCH ×2 (08:49→17:32)
[2016-04-27] MEDS: METOPROLOL TARTRATE 25 MG TAB PO SCH ×2 (08:50→20:05)
[2016-04-27] MEDS: RANITIDINE HCL 150 MG TAB PO SCH ×2 (08:50→20:05)
[2016-04-27] MEDS: SENNA 8.6 MG TAB PO SCH (08:50)
[2016-04-27] MEDS: MAGNESIUM HYDROXIDE SUSP 30 ML UDC PO SCH (08:50)
[2016-04-27] MEDS: POLYETHYLENE (MIRALAX) 17 GM PACK PO SCH ×2 (08:51→20:00)
[2016-04-27] MEDS: INSULIN ASPART 100 UNITS/ML 3 ML PEN SC SCH ×4 (08:52→20:54)
[2016-04-27] MEDS: INSULIN GLARGINE SOLOSTAR 100 UNITS/ML 3 ML PEN SC SCH ×2 (08:53→20:54)
--- NOTE | 2016-04-27 10:59 | Hospitalist Progress Note ---
Hospitalist Progress Note Date of Service Apr 27, 2016. (Tawana Aguilera ., GEETHA-C) Subjective Pt evaluation today including: conversation w/ patient, physical exam, chart review, lab review, review of inpatient medication list Pain: None PO Intake: Reports frequent aspirations Voiding: no voiding problems Patient reports feeling well. He states that his shortness of breath is improved but is still not at baseline. He complains of occasional wheezing. He states that he still feels like he is aspirating on food and drink, and when this happens he has coughing fits that are non-productive. He otherwise denies any cough when he is not aspirating. The patient denies fevers, chills, sweats , chest pain, palpitations, claudication, nausea, vomiting, abdominal pain, dysuria, hematuria, urinary retention, paralysis, weakness, numbness and tingling. Additional Comments: See HPI for pertinent positives and negatives. All other systems reviewed and negative. (Tawana Aguilera ., GEETHA-C) Objective Vital Signs Date Time Temp Pulse Resp B/P Pulse Ox O2 Delivery O2 Flow Rate FiO2 04/27/16 08:40 95 Room Air 04/27/16 08:00 Room Air 04/27/16 07:56 36.9 60 16 120/64 95 Room Air 04/27/16 00:00 Room Air 04/27/16 00:00 36.9 76 20 117/65 95 Room Air 04/26/16 19:49 36.4 60 20 123/63 94 Room Air 04/26/16 16:47 36.8 60 20 112/63 94 Room Air 04/26/16 16:20 94 Room Air (Tawana Aguilera, GEETHA-C) Physical Exam General Appearance: WD/WN, no apparent distress, + obese Eyes: normal inspection, PERRL, EOMI ENT: normal ENT inspection, hearing grossly normal, pharynx normal Neck: supple, no JVD, trachea midline Respiratory/Chest: normal breath sounds, no respiratory distress, + decreased breath sounds Cardiovascular: regular rate, rhythm, no gallop, no murmur Abdomen: normal bowel sounds, soft, + tenderness (mild lower abdominal tenderness) Extremities: + pedal edema (2+ pitting pedal edema right foot), + swelling (1+ pitting edema in RLE), + pertinent finding (erythema RLE, dressed wounds, tenderness with palpation) Neurologic/Psychiatric: alert, normal mood/affect, oriented x 3 Skin: normal color, warm/dry, no rash (Tawana Aguilera ., CHRISC) Laboratory Results Last 24 Hours Test 04/26/16 11:46 04/26/16 16:34 04/26/16 20:30 04/27/16 06:10 Bedside Glucose 147 mg/dl 148 mg/dl 165 mg/dl Sodium Level 143 mmol/L Potassium Level 3.6 mmol/L Chloride Level 102 mmol/L Carbon Dioxide Level 31 mmol/L Anion Gap 10.0 mmol/L Blood Urea Nitrogen 46 mg/dl Creatinine 2.20 mg/dl Est Creatinine Clear Calc Drug Dose 35.4 ml/min Estimated GFR () 31.8 Estimated GFR (Non- 27.5 BUN/Creatinine Ratio 20.8 Random Glucose 118 mg/dl Calcium Level 8.9 mg/dl Test 04/27/16 07:50 Bedside Glucose 108 mg/dl (Tawana Aguilera PA-C) Assessment and Plan 80 y/o male with a history of CHF, CKD stage III, DM II, HTN, HLD, a-fib, BPH, anemia and h/o left left amputation who presented to the ED on 04/22 with shortness of breath, non-productive cough, weakness and fatigue x 3 days. Recently stopped Pradaxa about 1 month ago due to bleeding issues. Also c/o worsening abdominal distention. Moving bowels. CXR shows likely atelectasis right base. EKG 66 bpm, ventricular paced rhythm. D-dimer elevated at 1560. Elevated creatinine above baseline at 2.2. VSS, pt not tachycardic or hypoxic on room air. Shortness of breath, recently stopped anticoagulation -Admit to med/surg as he is stable and non-hypoxic -Elevated creatinine, contrast contraindicated for CTA -V/Q scan to r/o PE, although given absence of tachycardia and hypoxia, this seems unlikely. VQ scan shows low probability of PE -Doppler U/S RLE negative for DVT Acute on chronic diastolic CHF--improving. Pt has gained about 15 kg since last admission in January 2016 -Abdominal distention--gradually worsening over last month prior to arrival -CT abd/pelvis w/o contrast shows ascites, anasarca and small bilateral pleural effusions L>R -Cardiology consulted, appreciate recs: continue Lasix 120 mg IV qd, assess on day to day bases until euvolemic and as renal function allows -Echocardiogram shows paradoxical septal motion, consistent with conduction abnormality. Mild pulmonary HTN. No significant change form 10/2015 study. -Continue spironolactone 25 mg PO qd -TSH WNL Acute kidney injury on CKD stage III--stable. Baseline creatinine around 1.7 -Creatinine upon arrival 2.2, pt had been given Lasix 40 mg IV in ED -Creatinine stable on 04/27 at 2.2 Dysphagia--Pt states he feels like he is choking when eating and food/drink "goes down the wrong tube" -Speech therapy evaluation pending Venous stasis ulcers--pt follows up at a wound clinic. Wound culture on 04/16 show PCN/cephalosporin sensitive staph aureus. Pt. started on Keflex as an outpatient 2 days ago. -Keflex 500 mg PO BID x 8 days, renally dosed. Started evening of 04/22. Diabetes mellitus type 2--Last HgbA1c checked 10/11/15 was 7.1 -Lantus 20 units SC BID -Insulin sliding scale -Check BSGs q ac and qhs -Repeat HgbA1c 6.0 HTN--stable -Continue Lopressor 25 mg PO BID HLD -Continue simvastatin 40 mg PO qd DVT prophylaxis -Heparin 5000 units SC q8h -EVELINE pitt and SCDs Code Status -Level V, DO NOT RESUSCITATE Dispo -Patient lives alone, PT/OT ordered -Pt. accepted at [facility] when medically stable (Tawana Aguilera ., PAJacquesC) Attending Attestation: Pt seen/examined, chart reviewed, care plan d/w GEETHA Aguilera. I agree w/ the guallpa components of her documentation except - none. Seen by speech today; had video swallow; esophageal dysmotility noted. Overall he feels well. He states "I still can't take a deep breath like I would want" but he states this symptom IS improved. VSS, afebrile gen - obese neck - JVD present heart - RRR, s1, s2 lungs - decreased BS bases; no wheeze; no obvious rales abd - distended but less, nontender ext - right leg edema about 1+ again; left AKA labs Cr 2.2 A/P: 1. acute/chronic diastolic CHF - improved.. Lasix 120mg daily IV again today. Aldactone 25mg daily. Continue beta radha; consider changing short acting over to toprol xl. 2. acute kidney injury - likely due to #2 - stable. 3. CKD stage 3 - baseline creatinine high 1's. 4. microcytic anemia 2nd to iron deficiency - ferrous sulfate 325mg BID. 5. PAD s/p amputation left leg - noted. 6. DVT proph - heparin. But pt refusing. Will address this with him. 7. h/o a. fib/flutter - s/p pacemaker placement. 8. T2DM - controlled. 9. HTN - controlled with current regimen. 10. hyperlipidemia - statin. 11. dysphagia - appreciate speech eval. New diet orders placed by speech likely approaching euvolemia and can then d/c to SNF Juanjo Torres MD (Juanjo Torres MD)
--- NOTE | 2016-04-27 12:25 | DIAGNOSTIC IMAGING REPORT ---
MODIFIED BARIUM SWALLOW CLINICAL HISTORY: Shortness of breath. Assess for aspiration. COMPARISON STUDY: No previous studies for comparison. Fluoroscopy time: 3 minutes. FINDINGS: There was no aspiration within liquids by spoon. There is a small amount of aspiration with serial swallows of thin liquids. There is no aspiration with nectar thick liquids, pudding or crackers with paste. Increased vallecular residuals were noted with pudding consistencies. Esophageal dysmotility was noted as well as suspected gastroesophageal reflux. This is suboptimally assessed on this exam. IMPRESSION: 1. Minimal tracheal aspiration with serial swallows of thin liquids. No aspiration with the remainder of the consistencies. 2. Esophageal dysmotility and gastroesophageal reflux, suboptimally assessed on this exam. 3. Full recommendations by speech pathology to follow. Electronically signed by: Igor Urbina M.D. 04/27/2016 12:24 PM Dictated Date/Time: 04/27/2016 12:20 PM
[2016-04-27 14:59] VITALS: BP 111/68; PULSE 63; TEMP 36.6; O2SAT 97
[2016-04-27] MEDS: FUROSEMIDE 80 MG TAB PO SCH (17:32)
[2016-04-27] MEDS: SIMVASTATIN 40 MG TAB PO SCH (20:06)
[2016-04-28 00:23] VITALS: BP 114/67; PULSE 60; TEMP 36.9; O2SAT 97
[2016-04-28] MEDS: HEPARIN SOD 5000 UNIT/0.5 ML CARP SQ SCH ×3 (05:00→21:00)
[2016-04-28 06:21] LABS: HEMATOCRIT 36.8 % (42-52); MEAN CORPUSCULAR HGB CONC 31.3 g/dl (32-36); MEAN PLATELET VOLUME 9.9 fL (7.4-10.4); PLATELET COUNT 110 K/uL (130-400); WHITE BLOOD COUNT 5.27 K/uL (4.8-10.8)
[2016-04-28 06:54] LABS: BUN/CREATININE RATIO 19.1 (10-20); CREATININE 2.3 mg/dl (0.60-1.40); POTASSIUM 3.6 mmol/L (3.5-5.1)
[2016-04-28 07:03] VITALS: BP 92/52; PULSE 60; TEMP 36.6; O2SAT 97
[2016-04-28] MEDS: CEPHALEXIN MONOHYDRATE 500 MG CAP PO SCH ×2 (07:40→19:50)
[2016-04-28] MEDS: FERROUS SULFATE 325 MG TAB PO SCH ×2 (07:40→17:00)
[2016-04-28] MEDS: SPIRONOLACTONE 25 MG TAB PO SCH (07:40)
[2016-04-28] MEDS: METOPROLOL TARTRATE 25 MG TAB PO SCH ×2 (07:41→19:49)
[2016-04-28] MEDS: RANITIDINE HCL 150 MG TAB PO SCH ×2 (07:41→19:48)
[2016-04-28] MEDS: MAGNESIUM HYDROXIDE SUSP 30 ML UDC PO SCH (07:41)
[2016-04-28] MEDS: SENNA 8.6 MG TAB PO SCH (07:41)
[2016-04-28] MEDS: POLYETHYLENE (MIRALAX) 17 GM PACK PO SCH ×2 (07:42→19:48)
[2016-04-28] MEDS: INSULIN GLARGINE SOLOSTAR 100 UNITS/ML 3 ML PEN SC SCH ×2 (07:48→19:46)
[2016-04-28] MEDS: INSULIN ASPART 100 UNITS/ML 3 ML PEN SC SCH ×4 (09:10→21:05)
--- NOTE | 2016-04-28 12:42 | DIAGNOSTIC IMAGING REPORT ---
ABDOMINAL ULTRASOUND, RIGHT UPPER QUADRANT HISTORY: Abdominal distention and shortness of breath. Possible cirrhosis.. COMPARISON: CT of the abdomen and pelvis April 22, 2011. FINDINGS: The liver is not overtly cirrhotic by sonography. No hepatic lesions are identified although sensitivity is diminished on this exam. There is no biliary ductal dilatation status post cholecystectomy. The pancreas is largely obscured on this study. There is no right hydronephrosis. IMPRESSION: 1. No biliary ductal dilatation status post cholecystectomy. 2. Obscured pancreas due to suboptimal penetration. 3. Liver not overtly cirrhotic by sonography. Electronically signed by: Igor Urbina M.D. 04/28/2016 12:40 PM Dictated Date/Time: 04/28/2016 12:39 PM
[2016-04-28 16:06] VITALS: BP 128/77; PULSE 60; TEMP 36.6; O2SAT 96
[2016-04-28] MEDS: FUROSEMIDE 80 MG TAB PO SCH (17:01)
[2016-04-28 19:49] VITALS: BP 127/66; PULSE 60
[2016-04-28] MEDS: SIMVASTATIN 40 MG TAB PO SCH (21:02)
--- NOTE | 2016-04-28 21:18 | Progress Note ---
Subjective Date of Service: Apr 28, 2016. Subjective Pt evaluation today including: conversation w/ patient, physical exam, chart review, lab review, review of studies (liver u/s ), review of inpatient medication list Pain: denies PO Intake: normal Voiding: no voiding problems feels good no respiratory symptoms/issues he has decided he wishes to return home rather than go to SNF he uses a scooter for ambulation does not use his prosthetic leg has numerous services in place at his apartment c/o mild pruritis at bedtime but declines any medication for such Problem List Medical Problems: (1) Acute kidney injury Status: Acute (2) Acute pyelonephritis Status: Acute (3) Current use of senior living anticoagulation Status: Acute (4) Dyspnea Status: Acute (5) GI bleed Status: Acute (6) GI bleed Status: Acute (7) Hypoglycemia Status: Acute (8) Hyponatremia Status: Acute (9) Renal insufficiency Status: Acute (10) Shortness of breath Status: Acute (11) Urinary tract infection Status: Acute Review of Systems Respiratory: No cough, No dyspnea at rest, No sputum Cardiac: No chest pain Abdomen: No pain Objective Vital Signs Date Time Temp Pulse Resp B/P Pulse Ox O2 Delivery O2 Flow Rate FiO2 04/28/16 19:49 60 127/66 04/28/16 16:15 Room Air 04/28/16 16:06 36.6 60 18 128/77 96 Room Air 04/28/16 12:03 Room Air 04/28/16 07:03 36.6 60 18 92/52 97 Room Air 04/28/16 00:23 36.9 60 18 114/67 97 Room Air 04/28/16 00:00 Room Air Physical Exam General Appearance: no apparent distress ENT: pharynx normal Neck: no JVD Respiratory/Chest: lungs clear, no respiratory distress, no accessory muscle use Cardiovascular: regular rate, rhythm, no gallop, no murmur Abdomen: normal bowel sounds, non tender, soft, no organomegaly Extremities: + pedal edema (<1+ right leg), + pertinent finding (left AKA) Neurologic/Psychiatric: alert, oriented x 3 Laboratory Results Last 24 Hours Test 04/28/16 05:55 04/28/16 07:36 04/28/16 11:32 04/28/16 16:49 White Blood Count 5.27 K/uL Red Blood Count 4.60 M/uL Hemoglobin 11.5 g/dL Hematocrit 36.8 % Mean Corpuscular Volume 80.0 fL Mean Corpuscular Hemoglobin 25.0 pg Mean Corpuscular Hemoglobin Concent 31.3 g/dl RDW Standard Deviation 63.1 fL RDW Coefficient of Variation 21.7 % Platelet Count 110 K/uL Mean Platelet Volume 9.9 fL Sodium Level 142 mmol/L Potassium Level 3.6 mmol/L Chloride Level 100 mmol/L Carbon Dioxide Level 34 mmol/L Anion Gap 8.0 mmol/L Blood Urea Nitrogen 44 mg/dl Creatinine 2.30 mg/dl Est Creatinine Clear Calc Drug Dose 33.4 ml/min Estimated GFR () 30.2 Estimated GFR (Non- 26.0 BUN/Creatinine Ratio 19.1 Random Glucose 123 mg/dl Calcium Level 9.0 mg/dl Bedside Glucose 113 mg/dl 125 mg/dl 127 mg/dl Test 04/28/16 20:00 Bedside Glucose 175 mg/dl Assessment and Plan 80yo male: 1. acute/chronic diastolic CHF - I believe he is euvolemic. He is at his baseline weight. d/c IV lasix. continue daily lasix. continue aldactone 25mg daily. Continue beta radha but change to toprol xl from tartrate. He typically takes lasix daily and metazolone twice a week. Consider latter three days a week. 2. acute kidney injury - likely due to #2 - stable. 3. CKD stage 3 - baseline creatinine high 1's. BMP in am. 4. microcytic anemia 2nd to iron deficiency - ferrous sulfate 325mg BID. H/H stable. 5. PAD s/p amputation left leg - noted. 6. DVT proph - heparin. I spoke with patient today - he refuses due to fear of bleeding. Despite reassurances he still refused. Cont SCD on right leg. 7. h/o a. fib/flutter - s/p pacemaker placement. 8. T2DM - controlled. 9. HTN - controlled with current regimen. 10. hyperlipidemia - statin. 11. dysphagia - appreciate speech eval. 2nd to esophageal dysmotility. New diet orders placed by speech 12. mildly low albumin and mildly elevated INR - RUQ us today w/o features of cirrhosis. 13. social - pt wishing to return home rather than SNF can likely d/c on Saturday am if labs are stable Discharge planning: home with home health
[2016-04-28 23:27] VITALS: BP 120/67; PULSE 60; TEMP 36.4; O2SAT 97
[2016-04-29] MEDS: HEPARIN SOD 5000 UNIT/0.5 ML CARP SQ SCH ×2 (04:55→12:42)
[2016-04-29 06:50] LABS: BUN/CREATININE RATIO 21.5 (10-20); CREATININE 2.2 mg/dl (0.60-1.40); MAGNESIUM 2.7 mg/dl (1.8-2.4); POTASSIUM 3.7 mmol/L (3.5-5.1)
[2016-04-29 07:08] VITALS: BP 117/70; PULSE 60; TEMP 36.5; O2SAT 95
[2016-04-29] MEDS ORDERED: METOPROLOL SUCC 25MG EXT REL TAB PO SCH (08:00)
[2016-04-29] MEDS: CEPHALEXIN MONOHYDRATE 500 MG CAP PO SCH (08:36)
[2016-04-29] MEDS: FERROUS SULFATE 325 MG TAB PO SCH (08:36)
[2016-04-29] MEDS: SPIRONOLACTONE 25 MG TAB PO SCH (08:36)
[2016-04-29] MEDS: MAGNESIUM HYDROXIDE SUSP 30 ML UDC PO SCH (08:36)
[2016-04-29] MEDS: SENNA 8.6 MG TAB PO SCH (08:37)
[2016-04-29] MEDS: RANITIDINE HCL 150 MG TAB PO SCH (08:37)
[2016-04-29] MEDS: INSULIN GLARGINE SOLOSTAR 100 UNITS/ML 3 ML PEN SC SCH (08:39)
[2016-04-29] MEDS: INSULIN ASPART 100 UNITS/ML 3 ML PEN SC SCH ×2 (08:39→12:45)
[2016-04-29] MEDS: POLYETHYLENE (MIRALAX) 17 GM PACK PO SCH (08:40)
[2016-04-29 14:44] VITALS: BP 117/70; PULSE 60; TEMP 36.5; O2SAT 95
[2016-04-29] MEDS ORDERED: SPR25 PO (14:53)
[2016-04-29] MEDS ORDERED: FRRS300 PO (14:53)
[2016-04-29] MEDS ORDERED: METO1TAB31 PO (14:53)
[2016-04-29 14:58] VITALS: BP 131/72; PULSE 63; TEMP 36.5; O2SAT 96
--- NOTE | 2016-04-29 15:01 | Discharge Instructions ---
Discharge Instructions Admission Reason for Admission: Congestive Heart Failure Discharge Discharge Diagnosis / Problem: Congestive heart failure Discharge Goals Goal(s): Improve function, Increase independence, Improve disease control, Learn about illness, Diagnostic testing, Therapeutic intervention Activity Recommendations Activity Limitations: resume your previous activity . Instructions / Follow-Up Instructions / Follow-Up From Dr. Torres: 1. Congestive Heart Failure instructions: Call your Primary Care doctor or Heart doctor if any of the following symptoms or problems start or get worse: * Shortness of breath or difficulty breathing * Wake up at night short of breath * Chest pain * Cough * Swelling of your hands, feet, or legs * More fatigued or tired with your normal activity * Palpitations - sudden fast heart beats WEIGHT * Weigh yourself every morning after using the bathroom. * Use the same scale. * Wear the same amount of clothing. * Write your weight down on a chart. * Call your Primary Care doctor or heart doctor if you gain more than 2-3 pounds in 1-2 days. MEDICATIONS * Use this discharge instruction sheet for medication instructions. * Take your medications at the time your doctor ordered. * Do not skip a dose of your medicines. * If you miss a dose of medicine, take it as soon as possible, but DO NOT DOUBLE A DOSE. * Read your medicine information when you get home. * Know all of the side effects of your medicine. If in doubt, ask your pharmacist * Call your Primary Care doctor's office if you have any side effects. * Be sure all of your doctors know what medicine and herbs you take (including cold, flu, and herbal medicine). Take the following with you to your follow-up doctor appointments: * Weight Chart * Medication List * List of questions Do not drink excessive alcohol, beer or wine. 2. New medications for your heart - * take spironolactone 25mg once daily EVERY MORNING; new prescription sent to [facility] * toprol xl (metoprolol xl) 25mg once daily; this takes the place of your old metoprolol; new prescription sent to [facility] 3. Continue your lasix 160mg daily as previous. 4. Continue your metazolone on Mondays and as previous. 5. Continue your potassium supplement on Mondays and as previous. 6. It is OK to stop your antibiotics that you had for your leg. 7. please watch your fluid intake (no more than 1500cc a day) and your salt intake (no more than 2 grams in 24 hours). High salt foods include fast foods, frozen/TV dinners, fried foods, soups ( canned and home-made), etc. 8. It appears you have low levels of iron. I recommend you take an iron supplement twice daily for 1-2 months. I sent a new prescription to the [facility] for you. Please note - the iron tablets may make your stool look dark and can cause constipation. 9. Please see the aerospace quality engineer THIS WEEK at [facility] office. Current Hospital Diet Patient's current hospital diet: Low Sodium Diet (2gm Na), Diabetes Type 2 Diet Discharge Diet Recommended Diet: Low Sodium Diet (2gm Na), Diabetes Type 2 Diet Fluid Restriction: 1500 ml (6 cups) Procedures Procedures Performed: 1. ultrasound of right leg showing no blood clots 2. abdominal CAT scan showing fluid retention 3. liver ultrasound showing NO cirrhosis 4. echocardiogram showing NO CHANGES from echocardiogram performed in October 2015 Pending Studies Studies pending at discharge: no Laboratory Results Hemoglobin A1c Test 04/22/16 11:35 Range/Units Estimated Average Glucose 126 mg/dl Hemoglobin A1c 6.0 H 4.5-5.6 % Medical Emergencies . Who to Call and When: Call 911 or go to the Emergency Room if: * If at any time you feel your situation is an emergency * You have tightness or pain in your chest that does not go away with rest or Nitroglycerin * You are very short of breath even with rest . Non-Emergent Contact Non-Emergency issues call your: Brakes Inspector Call Non-Emergent contact if: temperature is above 100.5, you have any medication questions If you are developing any of the following - * weight gain of more than 2-3 pounds in 1-2 days * of note - your weight on 04/29/16 was 250 pounds * worsening abdominal waist size / bloating * worsening swelling in the right leg * difficulty breathing during the day * difficulty breathing while trying to sleep or shortness of breath that awakens you from sleep . . "Provider Documentation" section prepared by Juanjo Torres. VTE Core Measure Inpt VTE Proph given/why not?: Unfractionated heparin SQ, SCD's
[2016-04-29 15:18] VITALS: BP 131/72; PULSE 63; TEMP 36.5; O2SAT 96
--- NOTE | 2016-04-30 10:34 | Discharge Summary ---
Discharge Summary Admission Date: Apr 22, 2016 at 15:06 Discharge Date: Apr 29, 2016 Discharge Disposition: Home with services Principal Diagnosis: acute/chronic diastolic CHF Problems/Secondary Diagnoses: 1. CKD stage 3 with superimposed acute kidney injury - discharge creatinine 2.2 2. morbid obesity with BMI 35 3. pulmonary HTN 4. GERD / esophageal dysmotility resulting in mild dysphagia 5. T2DM 6. left AKA status 7. iron deficiency anemia - discharge Hb 11.5 8. history of a fib 9. pacemaker status 10. hyperlipidemia 11. BPH 12. recent right leg staph infection - resolved 13. hypertension Immunizations: Have You Had Influenza Vaccine: No History of Tetanus Vaccine?: Unknown History of Pneumococcal: Yes Pneumococcal Date: Mar 03, 2009 History of Hepatitis B Vaccine: Unknown Procedures: 1. CT abd/pelvis: IMPRESSION: 1. Small amount of abdominal and pelvic ascites. 2. No bowel obstruction. 3. Extensive retroperitoneal fat, a chronic finding. 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 4. Small bilateral pleural effusions, left larger than right. Anasarca. 5. Suboptimal evaluation of the abdomen and pelvis given the lack of contrast. 2. echocardiogram: -- Conclusions -- * 1. Technically limited study even with the use of definity ultrasound contrast. * 2. Normal LV size wall thickness. * 3. Grossly normal LV function. EF 55-60%. Paradoxical septal motion consistent with conduction abnormality. * 4. RV not well visualized. Grossly normal size and function. * 5. No significant valvular pathology * 6. Mild pulmonary hypertension (Est. 35-40 mmHg, RA 8). * 7. Compared with prior study 10/12/2015: No significant change 3. video swallow evaluation: IMPRESSION: 1. Minimal tracheal aspiration with serial swallows of thin liquids. No aspiration with the remainder of the consistencies. 2. Esophageal dysmotility and gastroesophageal reflux, suboptimally assessed on this exam. 4. V/Q scan: low probability of PE. 5. RLE venous duplex exam: negative for DVT. 6. liver ultrasound: no features suggestive of cirrhosis. Consultations: cardiology - GEETHA Marx PT, OT, speech Medication Reconciliation New Medications: Ferrous Sulfate (Ferrous Sulfate) 325 Mg Tab 325 MG PO BIDM, #60 TAB 2 Refills Spironolactone (Spironolactone) 25 Mg Tab 25 MG PO QAM, #30 TAB 5 Refills for congestive heart failure and to prevent fluid retention Changed Medications: Metoprolol Succinate (Toprol Xl) 25 Mg Tab 1 TAB PO DAILY for 30 Days, #30 TAB 5 Refills (Changed from: Metoprolol Tartrate (Lopressor) (Lopressor) 25 Mg Tab 25 Mg PO BID Ref 0) Continued Medications: Docusate Sodium (Dulcolax Stool Softener) 100 Mg Cap 100-400 MG PO BID PRN for Constipation Furosemide (Lasix) 80 Mg Tab 160 MG PO QPM, TAB Insulin Human NPH (Novolin N) 100 Units/Ml Susp 40 UNITS SC BID Magnesium Hydroxide (Milk Of Magnesia) 30 Ml Susp 30 ML PO DAILY, ML Metolazone (Zaroxolyn) 2.5 Mg Tab 2.5 MG PO 2XWK, TAB Saturday Multiple Vitamins W/ Minerals (Multivitamin) 1 Liq Liq Potassium Chloride Microencaps (Potassium Chloride Er) 20 Meq Tab 100 MG PO 2XWK for 90 Days, TAB 3 Refills WITH METOLAZONE DOSE ON Saturday Ranitidine (Zantac) 150 Mg Tab 150 MG PO BID, 0 Refills Simvastatin (Zocor) 40 Mg Tab 40 MG PO QPM, TAB [multivitamin iron] () Discontinued Medications: Cephalexin Monohydrate (Keflex) 500 Mg Cap 500 MG PO TID, #30 CAP Potassium Chloride Pwd (Klor-Con Pwd) 20 Meq Pack Referrals At Discharge Follow up Referrals: Facilities Specialist Referral - Within 1 Week with Patrick Tucker P.A. Discharge Exam Physical Exam: General Appearance: no apparent distress, + obese ENT: pharynx normal Neck: + JVD Respiratory/Chest: lungs clear, no respiratory distress, no accessory muscle use Cardiovascular: regular rate, rhythm, no gallop, no murmur, normal peripheral pulses (right foot) Abdomen / GI: normal bowel sounds, non tender, soft, no organomegaly Extremities: + pedal edema (trace, right leg), + pertinent finding (left AKA ) Neurologic/Psychiatric: alert, oriented x 3 Skin: + pertinent finding (resolved cellulitis right distal leg; very tiny well-healing ulceration, right distal leg/rosado) Hospital Course HISTORY OF PRESENT ILLNESS: This is a 80 y/o male with a history of chronic diastolic CHF, CKD stage III, DM II, HTN, HLD, a-fib, BPH, pacemaker status, anemia, along with left leg AKA who presented to the ED on 04/22/16 with shortness of breath, non-productive cough, weakness and fatigue x 3 days. The patient states that he feels like he cannot take a deep breath. He has been using nebulizer treatments at home but states that they have not helped. He received a Duoneb hour-long in the ED which he also says did not help. He complains of dyspnea on exertion and occasional wheezing. He also reports an intermittent mild soreness across his chest that occurs after he has a coughing fit and will resolve on its own after the coughing has stopped. The patient has chronic swelling in his right lower extremity, but states that the swelling seems to be worse lately than usual. The patient states that he has also noticed abdominal distention over the last month that has slowly progressed. He complains that his abdomen feels hard although he denies any pain, nausea, or vomiting. He has been moving his bowels. The patient denies fevers, chills, sweats, palpitations, claudication, nausea, vomiting, abdominal pain, dysuria, hematuria, urinary retention, paralysis, motor weakness, new numbness and tingling. HOSPITAL COURSE: The patient's clinical presentation was felt to be due to acute/chronic diastolic CHF. He was placed on IV diuretics along with spironolactone. His regimen of twice weekly metolazone was also continued. With these measures he diuresed between 10-15 liters of fluid over his hospital course. All presenting symptoms resolved with diuresis. He underwent repeat echocardiogram which was unchanged from previous echo in 2016. Specifically his LV function continues to be preserved. At discharge he will remain on the following - * lasix 160mg once daily * spironolactone 25mg once daily * metolazone twice weekly on Mondays and prior to lasix * potassium on Mondays/ * his metoprolol tartrate was changed to succinate (25mg once daily) If he fails to stay euvolemic options would include increasing the frequency of his metolazone or changing his lasix to twice daily dosing. Will defer this to his outpatient blown film extrusion operator. Noncompliance with diet was suspected as his daughter reported indiscretion with eating/drinking. He was counseled regarding the importance of fluid and salt restriction. Discharge weight was 113.5kg (250 pounds). Other causes of fluid retention such as hypothyroidism and liver disease were excluded. Additional problems addressed: 1. acute kidney injury in setting of CKD stage - baseline creatinine is about 1.9; discharge creatinine was 2.2 He will need repeat BMP at time of hospital follow-up. 2. iron deficiency anemia - iron studies were c/w iron deficiency. He was started on ferrous sulfate 325mg BID. Of note - he underwent EGD and colonoscopy in January 2016 both of which did not show a bleeding source. If he continues to be iron deficient consideration to capsule endoscopy would be reasonable. Will need repeat cbc and iron studies in the future to ensure normalization. 3. dysphagia - seen by speech therapy and video swallow evaluation was obtained. He had evidence of GERD and esophageal dysmotility with the latter likely causing most of his symptoms. Speech counseled him regarding modification of his eating practices, etc. All other medical problems (T2DM, HTN, etc) remained stable. He will continue with home health services after discharge. Total Time Spent: Greater than 30 minutes This includes examination of the patient, discharge planning, medication reconciliation, and communication with other providers. Discharge Instructions Please refer to the electronic Patient Visit Report (Discharge Instructions) for additional information. Follow-Up see [facility] within 5-7 days Additional Copies To Patrick Tucker,P.A.; Lilly Holguin,
== END 2016-04-29 15:45 | disposition home health service (06) | DRG 292 ==
LOC: ENRESERVDT → ENRESERVTM → EDBD 11:21 → C.EDC 11:23 → C.MED 15:06 → C.4E 04-27 13:35
PROVIDERS: ADMIT Hospitalist; ATTEND Internal Medicine
DX: I50.33 Acute on chronic diastolic (congestive) heart failure (principal); N17.9 Acute kidney failure, unspecified; L97.919 Non-pressure chronic ulcer of unspecified part of right lower leg with unspecified severity; R18.8 Other ascites; I12.9 Hypertensive chronic kidney disease with stage 1 through stage 4 chronic kidney disease, or unspecified chronic kidney disease; I49.5 Sick sinus syndrome; E66.01 Morbid (severe) obesity due to excess calories; E11.51 Type 2 diabetes mellitus with diabetic peripheral angiopathy without gangrene; D50.9 Iron deficiency anemia, unspecified; R13.10 Dysphagia, unspecified; E78.5 Hyperlipidemia, unspecified; N18.3 Chronic kidney disease, stage 3 (moderate); E11.40 Type 2 diabetes mellitus with diabetic neuropathy, unspecified; I87.2 Venous insufficiency (chronic) (peripheral); I48.2 Chronic atrial fibrillation; Z79.899 Other long term (current) drug therapy; Z87.891 Personal history of nicotine dependence; Z89.512 Acquired absence of left leg below knee; Z79.4 Long term (current) use of insulin; Z95.0 Presence of cardiac pacemaker; Z68.35 Body mass index [BMI] 35.0-35.9, adult

== ENCOUNTER → 2016-05-15 | Outpatient (CLI) | payer OTHER ==
[~2016-05-15] MED LIST changes: -CEPH500C2 PO; +FRRS300 PO; +METO1TAB31 PO; -METO25TA56 PO; +MULT1LIQ6; -POTA-335 PO; +SPR25 PO
[2016-05-15 12:10] LABS: BASO % 0.2 %; BASO ABS # 0.01 K/uL (0-0.2); EOS % 4.9 %; HEMATOCRIT 40.2 % (42-52); IG% 0.2 %; LYMPH % 20.9 %; LYMPH ABS # 1.19 K/uL (1.2-3.4); MEAN CELL VOLUME 77.3 fL (80-100); MEAN CORPUSCULAR HGB CONC 32.3 g/dl (32-36); MEAN PLATELET VOLUME 9.4 fL (7.4-10.4); MONO % 7.6 %; NEUT % 66.2 %; PLATELET COUNT 138 K/uL (130-400); WHITE BLOOD COUNT 5.69 K/uL (4.8-10.8)
[2016-05-15 12:31] LABS: ANISOCYTOSIS PRESENT; COMPLETE YES; MICROCYTOSIS PRESENT; POIKILOCYTOSIS PRESENT
[2016-05-15 12:39] LABS: ESTIMATED AVERAGE GLUCOSE 134 mg/dl; HA1C FLAG Normal (Normal)
[2016-05-15 12:52] LABS: ALT/SGPT 24 U/L (12-78); AST/SGOT 29 U/L (15-37); BLOOD UREA NITROGEN 68 mg/dl (7-18); CALCIUM 9.5 mg/dl (8.5-10.1); CARBON DIOXIDE 27 mmol/L (21-32); CHLORIDE 97 mmol/L (98-107); CHOLESTEROL 80 mg/dl (0-200); GLUCOSE 78 mg/dl (70-99); POTASSIUM 3.7 mmol/L (3.5-5.1); SODIUM 137 mmol/L (136-145); TRIGLYCERIDES 42 mg/dl (0-150); VERY LOW DENSITY LIPOPROT CALC 8 mg/dl
[2016-05-15 12:56] LABS: ALB/GLOB RATIO 0.8 (0.9-2); ALKALINE PHOSPHATASE 213 U/L (45-117); CHOLESTEROL/HDL RATIO 1.6; FERRITIN 96.4 ng/ml (8.0-388.0); HDL CHOLESTEROL 50 mg/dl; LDL CHOLESTEROL CALCULATED 22 mg/dl; TOTAL IRON BINDING CAPACITY 359 mcg/dl (250-450)
[2016-05-15 12:59] LABS: RATIO 14.7 mcg/mg (0-30.0)
== END | disposition home or self-care (01) ==
LOC: C.LAB1850 10:38
PROVIDERS: ATTEND Nurse Practitioner Family
DX: E11.9 Type 2 diabetes mellitus without complications (principal); I12.9 Hypertensive chronic kidney disease with stage 1 through stage 4 chronic kidney disease, or unspecified chronic kidney disease; E78.5 Hyperlipidemia, unspecified; N18.9 Chronic kidney disease, unspecified; D64.9 Anemia, unspecified

== ENCOUNTER → 2016-06-29 | Outpatient (CLI) | payer OTHER ==
[~2016-06-29] MED LIST changes: +METO-478 PO; -METO1TAB31 PO
[2016-06-29 14:56] LABS: BASO % 0.3 %; BASO ABS # 0.02 K/uL (0-0.2); COMPLETE YES; EOS % 5.5 %; HEMATOCRIT 45.1 % (42-52); IG% 0.1 %; LYMPH % 16.3 %; LYMPH ABS # 1.15 K/uL (1.2-3.4); MEAN CELL VOLUME 80.1 fL (80-100); MEAN CORPUSCULAR HGB CONC 33.7 g/dl (32-36); MEAN PLATELET VOLUME 9.4 fL (7.4-10.4); MONO % 13.2 %; NEUT % 64.6 %; PLATELET COUNT 124 K/uL (130-400); RED BLOOD COUNT 5.63 M/uL (4.7-6.1); WHITE BLOOD COUNT 7.05 K/uL (4.8-10.8)
[2016-06-29 15:10] LABS: BLOOD UREA NITROGEN 108 mg/dl (7-18); BUN/CREATININE RATIO 38.7 (10-20); CARBON DIOXIDE 29 mmol/L (21-32); CHLORIDE 92 mmol/L (98-107); GLUCOSE 103 mg/dl (70-99); POTASSIUM 3.6 mmol/L (3.5-5.1); SODIUM 132 mmol/L (136-145)
[2016-06-29 15:16] LABS: CALCIUM 10.2 mg/dl (8.5-10.1)
== END | disposition home or self-care (01) ==
LOC: C.LAB 11:26
PROVIDERS: ATTEND Internal Medicine Cardiovascular Disease
DX: D64.9 Anemia, unspecified (principal); I50.32 Chronic diastolic (congestive) heart failure

== ENCOUNTER → 2016-07-17 | Outpatient (CLI) | payer OTHER ==
[2016-07-17 15:28] LABS: BLOOD UREA NITROGEN 52 mg/dl (7-18); BUN/CREATININE RATIO 23.8 (10-20); CALCIUM 9.4 mg/dl (8.5-10.1); CARBON DIOXIDE 31 mmol/L (21-32); CHLORIDE 102 mmol/L (98-107); GLUCOSE 121 mg/dl (70-99); SODIUM 138 mmol/L (136-145)
== END | disposition home or self-care (01) ==
LOC: C.LAB1850 12:43
PROVIDERS: ATTEND Physician Assistant
DX: I50.32 Chronic diastolic (congestive) heart failure (principal)

== ENCOUNTER → 2016-08-03 | Outpatient (CLI) | payer OTHER ==
[2016-08-03 14:54] LABS: BLOOD UREA NITROGEN 56 mg/dl (7-18); BUN/CREATININE RATIO 24.5 (10-20); CALCIUM 8.9 mg/dl (8.5-10.1); CARBON DIOXIDE 27 mmol/L (21-32); CHLORIDE 106 mmol/L (98-107); GLUCOSE 143 mg/dl (70-99); POTASSIUM 4.9 mmol/L (3.5-5.1); SODIUM 141 mmol/L (136-145)
== END | disposition home or self-care (01) ==
LOC: C.LAB1850 12:58
PROVIDERS: ATTEND Physician Assistant
DX: N18.9 Chronic kidney disease, unspecified (principal)

== ENCOUNTER → 2016-08-08 | Outpatient (CLI) | payer OTHER ==
[2016-08-08 18:16] LABS: URINE APPEARANCE CLEAR (CLEAR); URINE BILIRUBIN NEG (NEG); URINE COLOR YELLOW; URINE NITRITE NEG (NEG); URINE SPECIFIC GRAVITY 1.014 (1.000-1.030); UROBILINOGEN NEG (NEG)
[2016-08-08 18:22] LABS: MANUAL MICROSCOPIC REQUIRED? NO; REVIEW REQ? NO
== END | disposition home or self-care (01) ==
LOC: C.LABSPEC 17:43
PROVIDERS: ATTEND Nurse Practitioner Family
DX: N18.4 Chronic kidney disease, stage 4 (severe) (principal)

== ENCOUNTER → 2016-09-07 | Outpatient (CLI) | payer OTHER ==
[~2016-09-07] MED LIST changes: -METO-478 PO; +METO1TAB31 PO
[2016-09-07 13:39] LABS: ALT/SGPT 34 U/L (12-78); BLOOD UREA NITROGEN 67 mg/dl (7-18); CALCIUM 9.8 mg/dl (8.5-10.1); CARBON DIOXIDE 28 mmol/L (21-32); CHLORIDE 100 mmol/L (98-107); GLUCOSE 169 mg/dl (70-99); MAGNESIUM 3.3 mg/dl (1.8-2.4); POTASSIUM 5.1 mmol/L (3.5-5.1); SODIUM 136 mmol/L (136-145)
[2016-09-07 13:42] LABS: ALB/GLOB RATIO 0.8 (0.9-2); ALKALINE PHOSPHATASE 145 U/L (45-117); AST/SGOT 32 U/L (15-37); PHOSPHORUS 2.9 mg/dl (2.5-4.9)
== END | disposition home or self-care (01) ==
LOC: C.LAB1850 12:09
PROVIDERS: ATTEND Internal Medicine Nephrology
DX: N18.4 Chronic kidney disease, stage 4 (severe) (principal)

== ENCOUNTER → 2016-10-12 | Outpatient (CLI) | payer OTHER ==
[2016-10-12 15:17] LABS: FERRITIN 127.5 ng/ml (8.0-388.0)
== END | disposition home or self-care (01) ==
LOC: C.LAB1850 12:30
PROVIDERS: ATTEND Physician Assistant
DX: D64.9 Anemia, unspecified (principal)

== ENCOUNTER → 2016-11-07 | Outpatient (CLI) | payer OTHER ==
[2016-11-07 15:29] LABS: BLOOD UREA NITROGEN 75 mg/dl (7-18); CALCIUM 9.6 mg/dl (8.5-10.1); CARBON DIOXIDE 28 mmol/L (21-32); CHLORIDE 99 mmol/L (98-107); GLUCOSE 238 mg/dl (70-99); MAGNESIUM 3.1 mg/dl (1.8-2.4); SODIUM 135 mmol/L (136-145)
[2016-11-07 15:30] LABS: PHOSPHORUS 3.4 mg/dl (2.5-4.9)
== END | disposition home or self-care (01) ==
LOC: C.LAB1850 12:32
PROVIDERS: ATTEND Internal Medicine Nephrology
DX: N18.4 Chronic kidney disease, stage 4 (severe) (principal)

== ENCOUNTER → 2016-12-01 | Outpatient (CLI) | payer OTHER ==
[2016-12-01 11:29] LABS: ESTIMATED AVERAGE GLUCOSE 146 mg/dl; HA1C FLAG Normal (Normal)
[2016-12-01 11:39] LABS: ALT/SGPT 25 U/L (12-78); AST/SGOT 21 U/L (15-37); BLOOD UREA NITROGEN 36 mg/dl (7-18); BUN/CREATININE RATIO 18.7 (10-20); CALCIUM 8.9 mg/dl (8.5-10.1); CARBON DIOXIDE 28 mmol/L (21-32); CHLORIDE 104 mmol/L (98-107); GLUCOSE 137 mg/dl (70-99); POTASSIUM 4.6 mmol/L (3.5-5.1); SODIUM 138 mmol/L (136-145)
[2016-12-01 11:44] LABS: ALB/GLOB RATIO 0.8 (0.9-2); ALKALINE PHOSPHATASE 126 U/L (45-117); CHOLESTEROL 79 mg/dl (0-200); CHOLESTEROL/HDL RATIO 1.4; HDL CHOLESTEROL 56 mg/dl; LDL CHOLESTEROL CALCULATED 14 mg/dl; TRIGLYCERIDES 44 mg/dl (0-150); VERY LOW DENSITY LIPOPROT CALC 9 mg/dl
[2016-12-01 11:52] LABS: HEMATOCRIT 39.9 % (42-52); MEAN CELL VOLUME 86.9 fL (80-100); MEAN CORPUSCULAR HEMOGLOBIN 28.5 pg (25-34); MEAN CORPUSCULAR HGB CONC 32.8 g/dl (32-36); MEAN PLATELET VOLUME 9.5 fL (7.4-10.4); PLATELET COUNT 95 K/uL (130-400); RED BLOOD COUNT 4.59 M/uL (4.7-6.1); WHITE BLOOD COUNT 5.28 K/uL (4.8-10.8)
[2016-12-01 11:53] LABS: ANISOCYTOSIS PRESENT; BASO % 0.4 %; BASO ABS # 0.02 K/uL (0-0.2); COMPLETE YES; EOS % 4.2 %; IG% 0.2 %; LYMPH % 17.2 %; LYMPH ABS # 0.91 K/uL (1.2-3.4); PLT ESTIMATE DECREASED; TOXIC GRANULATION 1+; VACUOLIZATION 1+
== END | disposition home or self-care (01) ==
LOC: C.LAB 10:27
PROVIDERS: ATTEND Nurse Practitioner Family
DX: I11.0 Hypertensive heart disease with heart failure (principal); K21.9 Gastro-esophageal reflux disease without esophagitis; E78.5 Hyperlipidemia, unspecified; I48.2 Chronic atrial fibrillation; E11.40 Type 2 diabetes mellitus with diabetic neuropathy, unspecified; I50.9 Heart failure, unspecified; N18.4 Chronic kidney disease, stage 4 (severe); N40.0 Benign prostatic hyperplasia without lower urinary tract symptoms

== ENCOUNTER → 2017-02-23 | Outpatient (CLI) | payer OTHER ==
[~2017-02-23] MED LIST changes: +METO-478 PO; -METO1TAB31 PO
[2017-02-23 12:16] LABS: ESTIMATED AVERAGE GLUCOSE 154 mg/dl; HA1C FLAG Normal (Normal)
[2017-02-23 12:31] LABS: BLOOD UREA NITROGEN 49 mg/dl (7-18); BUN/CREATININE RATIO 28.5 (10-20); CALCIUM 9.2 mg/dl (8.5-10.1); CARBON DIOXIDE 30 mmol/L (21-32); CHLORIDE 99 mmol/L (98-107); CREATININE 1.73 mg/dl (0.60-1.40); GLUCOSE 74 mg/dl (70-99); GLUCOSE,FASTING 74 mg/dl (70-99); MAGNESIUM 2.7 mg/dl (1.8-2.4); POTASSIUM 3.9 mmol/L (3.5-5.1); SODIUM 134 mmol/L (136-145)
== END | disposition home or self-care (01) ==
LOC: C.LAB 11:18
PROVIDERS: ATTEND Internal Medicine Nephrology
DX: E11.22 Type 2 diabetes mellitus with diabetic chronic kidney disease (principal); N18.4 Chronic kidney disease, stage 4 (severe)

== ENCOUNTER → 2017-07-13 | Outpatient (CLI) | payer OTHER ==
[~2017-07-13] MED LIST changes: +RANI150T85 PO; -ZNTT/150 PO
[2017-07-13 11:33] LABS: HEMATOCRIT 40.7 % (42-52); HEMOGLOBIN 13.6 g/dL (14.0-18.0); MEAN CELL VOLUME 87.7 fL (80-100); MEAN CORPUSCULAR HEMOGLOBIN 29.3 pg (25-34); MEAN CORPUSCULAR HGB CONC 33.4 g/dl (32-36); MEAN PLATELET VOLUME 10.3 fL (7.4-10.4); PLATELET COUNT 83 K/uL (130-400); RED CELL DISTRIBUTION WIDTH CV 14.6 % (11.5-14.5); WHITE BLOOD COUNT 4.33 K/uL (4.8-10.8)
[2017-07-13 11:45] LABS: HEMOGLOBIN A1C 6.6 % (4.5-5.6)
[2017-07-13 11:49] LABS: ALBUMIN 3.8 gm/dl (3.4-5.0); BLOOD UREA NITROGEN 86 mg/dl (7-18); CALCIUM 9.6 mg/dl (8.5-10.1); CARBON DIOXIDE 26 mmol/L (21-32); CREATININE 2.83 mg/dl (0.60-1.40); GLUCOSE 97 mg/dl (70-99); POTASSIUM 4.5 mmol/L (3.5-5.1); SODIUM 137 mmol/L (136-145)
[2017-07-13 11:54] LABS: PHOSPHORUS 4.2 mg/dl (2.5-4.9); TRANSFERRIN 278 mg/dl (200-360)
[2017-07-13 11:57] LABS: BASO % 0.5 %; BASO ABS # 0.02 K/uL (0-0.2); EOS % 4.8 %; EOS ABS # 0.21 K/uL (0-0.5); LYMPH % 22.9 %; LYMPH ABS # 0.99 K/uL (1.2-3.4); MONO % 13.2 %; MONO ABS # 0.57 K/uL (0.11-0.59); NEUT % 58.6 %; NEUT ABS # 2.54 K/uL (1.4-6.5)
== END | disposition home or self-care (01) ==
LOC: C.LAB 09:36
PROVIDERS: ATTEND Internal Medicine Nephrology
DX: N18.4 Chronic kidney disease, stage 4 (severe) (principal); D64.9 Anemia, unspecified; E11.9 Type 2 diabetes mellitus without complications; E78.5 Hyperlipidemia, unspecified

== ENCOUNTER 2017-10-03 16:12 | Inpatient (IN) | payer OTHER ==
[~2017-10-03] VITALS: Ht 182.9 cm; Wt 102.4 kg
[~2017-10-03 16:12] MED LIST changes: +ACET-1222 PO; +ACET650T51 PO; +ARTISOL12 OP; -DOCU-105 PO; -FRRS300 PO; -METO-478 PO; -METO2.5T PO; +METO25TA3 PO; +SPIR25TA6 PO; -SPR25 PO; -[UNRECOGNIZED DRUG - OTHER]
[2017-10-03] MEDS ORDERED: LSX/80 PO (16:46)
[2017-10-03] MEDS ORDERED: ASPI81TA28 PO (16:46)
--- NOTE | 2017-10-03 17:29 | EMERGENCY ROOM VISIT NOTE ---
History Report prepared by Sincere: Clari Patterson Under the Supervision of: Monty DahlO. First contact with patient: 17:06 Chief Complaint: OTHER COMPLAINT Stated Complaint: WEAKNESS, UNABLE TO CARE FOR HIMSELF, History of Present Illness The patient is a 81 year old male who presents to the Emergency Room with complaints of phantom pain in his left leg stump and weakness beginning last night. He states he was at the doctor last night and when he got discharged, he developed the pain and weakness. He reports he called his friend to help him get on "the potty chair" but he was unable to. His friend then helped the patient get on the bed where he went to the bathroom on a pad but he does not think he "got it all." The patient also reports he has right knee soreness. He notes he got his left leg amputated 10-11 years ago. He states he did not wear his right compression stocking or eat and drink well yesterday and today. The patient denies any fevers, chills, or diarrhea. States RLE chronically swollen and red. Pt here yesterday for leg pain, reassuring labs and xray of the leg at this time. Source of History: patient Onset: last night Position: other (left leg stump, global) Quality: other (phantom left leg stump pain, weakness) Associated Symptoms: No fevers, No chills, No diarrhea Note: Positive right knee soreness, not wearing his right leg compression stocking, not eating and drinking well yesterday and today Review of Systems See HPI for pertinent positives & negatives. A total of 10 systems reviewed and were otherwise negative. Past Medical & Surgical Medical Problems: (1) A-fib (2) Abdominal distension (3) Abdominal pain (4) Anemia (5) Arthritis (6) Cellulitis of right lower extremity (7) CHF (congestive heart failure) (8) Diabetes (9) Heart disease (10) Hyperkalemia (11) Hypertension (12) Kidney disease (13) Pacemaker (14) Rectal bleed (15) Seizure (16) Sepsis (17) Shortness of breath Family History Coronary artery disease Myocardial infarction Social History Smoking Status: Never Smoker Drug Use: none Marital Status: Housing Status: assisted living Occupation Status: retired Current/Historical Medications Scheduled Acetaminophen (8 Hour Pain Reliever), 1,300 MG PO QPM Acetaminophen (Acetaminophen Extra Stren), 1,000 MG PO QAM Artificial Tear Solution (Artificial Tears), 1 DROPS OP QID Aspirin (Aspirin Ec), 81 MG PO DAILY Furosemide (Lasix), 2 TABS PO AMPM Insulin Human NPH (Novolin N), 40 UNITS SC BID Magnesium Hydroxide (Milk Of Magnesia), 30 ML PO DAILY Potassium Chloride Microencaps (Potassium Chloride Er), 5 MEQ PO QPM Ranitidine (Zantac), 150 MG PO BID Simvastatin (Zocor), 40 MG PO QPM Spironolactone (Spironolactone), 25 MG PO QAM Miscellaneous Medications Multiple Vitamins W/ Minerals (Multivitamin) Allergies Coded Allergies: Sulfa Antibiotics (Verified Allergy, Unknown, HAS TOLERATED BUMEX, 10/03/17 ) Physical Exam Vital Signs Date Time Temp Pulse Resp B/P (MAP) Pulse Ox O2 Delivery O2 Flow Rate FiO2 10/03/17 19:18 60 20 121/63 98 Room Air 10/03/17 18:04 66 24 112/61 98 Room Air 10/03/17 16:19 37.1 68 16 119/62 98 Room Air Physical Exam GENERAL: alert, well appearing, well nourished, no distress, non-toxic EYE EXAM: normal conjunctiva, PERRL and EOM's grossly intact OROPHARYNX: no exudate, no erythema, lips, buccal mucosa, and tongue normal and mucous membranes are dry NECK: supple, no nuchal rigidity, no adenopathy, non-tender LUNGS: Clear to auscultation. Normal chest wall mechanics HEART: no murmurs, S1 normal and S2 normal ABDOMEN: abdomen soft, non-tender, normo-active bowel sounds, no masses, no rebound or guarding. BACK: Back is symmetrical on inspection and there is no deformity, no midline tenderness, no CVA tenderness. SKIN: no rashes and no bruising UPPER EXTREMITIES: upper extremities are grossly normal. LOWER EXTREMITIES: Left AKA. RLE 3+ edema with mild erythema. No crepitus. Normal pulse. NEURO EXAM: Normal sensorium, cranial nerves II-XII grossly intact, normal speech, no gross weakness of arms, no gross weakness of legs. Medical Decision & Procedures ER Provider Diagnostic Interpretation: Radiology results have been interpreted by the radiologist and reviewed by me. CHEST ONE VIEW PORTABLE CLINICAL HISTORY: weakness COMPARISON STUDY: April 22, 2016 FINDINGS: The cardiac and mediastinal contours remain stable. The heart is mildly enlarged. There is bilateral interstitial thickening most pronounced the left lung base. The findings remain similar to the preceding study. There is a left subclavian single chamber central venous pacemaker. There is blunting of both lateral costophrenic angles. IMPRESSION: No significant change in the interstitial thickening, most pronounced at the left lung base. Suspected trace pleural effusions. Mild cardiomegaly. Electronically signed by: William Woodward M.D. 10/03/2017 6:29 PM Laboratory Results Test 10/03/17 17:25 10/03/17 17:54 10/03/17 19:12 Dohle Bodies 1+ Prothrombin Time 14.9 SECONDS (9.0-12.0) Prothromb Time International Ratio 1.4 (0.9-1.1) Magnesium Level 3.6 mg/dl (1.8-2.4) Troponin I 0.040 ng/ml (0-0.045) Pro-B-Type Natriuretic Peptide 3836 pg/ml (0-1800) Urine Color DK YELLOW Urine Appearance CLEAR (CLEAR) Urine pH 7.0 (4.5-7.5) Urine Specific [place] 1.014 (1.000-1.030) Urine Protein NEG (NEG) Urine Glucose (UA) NEG (NEG) Urine Ketones NEG (NEG) Urine Occult Blood NEG (NEG) Urine Nitrite NEG (NEG) Urine Bilirubin NEG (NEG) Urine Urobilinogen NEG (NEG) Urine Leukocyte Esterase NEG (NEG) Bedside Lactic Acid Venous 3.07 mmol/L (0.90-1.70) Date/Time Source Procedure Growth Status 10/03/17 18:08 Stool C.difficile Toxin B Gene (PCR) - Final No C. difficile toxin B gene detected Complete Laboratory results per my review. Medications Administered Medications (Trade) Dose Ordered Sig/Melvin Route Start Time Stop Time Status Last Admin Dose Admin Cefazolin Sodium (Cefazolin 1000mg Iv Push) 1,000 mg NOW STAT IV 10/03/17 18:35 10/03/17 18:37 DC 10/03/17 19:13 1,000 MG Sodium Chloride 1,000 ml @ 250 mls/hr Q4H STAT IV 10/03/17 18:36 10/03/17 22:35 DC 10/03/17 19:13 250 MLS/HR Piperacillin Sod/ Tazobactam Sod (Zosyn Iv) 3.375 gm NOW STAT IV 10/03/17 20:09 10/03/17 20:10 DC 10/03/17 20:19 3.375 GM Acetaminophen (Tylenol Tab) 650 mg Q4H PRN PO 10/03/17 20:30 11/02/17 20:29 10/05/17 14:19 650 MG Magnesium Hydroxide (Milk Of Magnesia Susp) 30 ml Q12H PRN PO 10/03/17 20:30 11/02/17 20:29 10/04/17 15:59 30 ML ED Course 1708: The patient was evaluated in room A12. A complete history and physical exam was performed. 5: Ordered Cefazolin Sodium 1000 mg IV 6: Ordered Sodium Chloride 1000 ml @ 250 mls/hr IV 7: I reviewed the patient's case with Dr. Gruber, [facility] Hospitalist. He will evaluate the patient for further management. 194: Pt's leg now with increased erythema compared to prior. CT a/p pending after episode of diarrhea here. Stools cultures sent. Additional antibiotics added. Medical Decision Differential diagnosis: Etiologies such as metabolic, infection, hypo/hyperglycemia, electrolyte abnormalities, cardiac sources, intracerebral event, toxicologic, neurologic, as well as others were entertained. Pt with multiple chronic comorbidities and here had no complaints other than weakness. Labs yesterday reassuring and pt stated he still had chronic phantom pain from the left AKA. Pt initially covered for possible RLE cellulitis while labs pending. Pt then had episode of diarrhea here, cultures sent and CT a/p ordered to investigate for possible cause of his weakness. CT was pending at the time of discussion with hospitalist. Concern for evolving cellulitis in the patient. Pt not initially bolused with IVF due to hx of CHF however on additional review of EMR, prior echo showed normal EF and so an additional bolus of IVF was ordered. On repeat exam, pt's RLE appeared worse, and given risk factors for nec fasc, additional antibiotic coverage was ordered. Pt with hx of CKD however Cr tonight worse than usual. Mild chronic hyponatremia. Despite risk factors pt's exam and f/u xrays not impressive for nec fasc. VS stable in the ER. Pt stated improved here with IVF. C.diff resulted negative. Pt and then brother at bedside aware of all results and plan and were in agreement. Medication Reconcilliation Current Medication List: was personally reviewed by me Blood Pressure Screening Patient's blood pressure: Normal blood pressure Blood pressure disposition: Did not require urgent referral Consults Time Called: 1809 Consulting Physician: Dr. Gruber [facility] Hospitalist Returned Call: [phone] I reviewed the patient's case with Dr. Gruber [facility] Hospitalist. He will evaluate the patient for further management. Impression Primary Impression: Dehydration Additional Impressions: Generalized weakness Acute on chronic renal failure Cellulitis Diarrhea Scribe Attestation The scribe's documentation has been prepared under my direction and personally reviewed by me in its entirety. I confirm that the note above accurately reflects all work, treatment, procedures, and medical decision making performed by me. Departure Information Dispostion Being Evaluated By Hospitalist (Dr. Gruber, [facility] Hospitalist) Referrals Robin Whitehead III, CRNP (PCP) Patient Instructions My [facility] Problem Qualifiers Additional Impressions: Acute on chronic renal failure Acute renal failure type: unspecified Chronic kidney disease stage: unspecified stage Qualified Codes: N17.9 - Acute kidney failure, unspecified; N18.9 - Chronic kidney disease, unspecified Cellulitis Site of cellulitis: extremity Site of cellulitis of extremity: lower extremity Laterality: right Qualified Codes: L03.115 - Cellulitis of right lower limb Diarrhea Diarrhea type: unspecified type Qualified Codes: R19.7 - Diarrhea, unspecified
[2017-10-03 18:08] LABS: HEMATOCRIT 39.3 % (42-52); HEMOGLOBIN 12.8 g/dL (14.0-18.0); MEAN CELL VOLUME 88.1 fL (80-100); MEAN CORPUSCULAR HEMOGLOBIN 28.7 pg (25-34); MEAN CORPUSCULAR HGB CONC 32.6 g/dl (32-36); RED CELL DISTRIBUTION WIDTH CV 15.6 % (11.5-14.5); RED CELL DISTRIBUTION WIDTH SD 49.9 fL (36.4-46.3)
[2017-10-03 18:15] LABS: INR 1.4 (0.9-1.1)
[2017-10-03 18:27] LABS: MEAN PLATELET VOLUME 11.2 fL (7.4-10.4); PLATELET COUNT 93 K/uL (130-400)
[2017-10-03 18:31] LABS: ALBUMIN 3.4 gm/dl (3.4-5.0); BASO % 0.1 %; BASO ABS # 0.01 K/uL (0-0.2); CALCIUM 9.4 mg/dl (8.5-10.1); CREATININE 4.11 mg/dl (0.60-1.40); EOS % 0.1 %; EOS ABS # 0.01 K/uL (0-0.5); IG# 0.15 K/uL (0.00-0.02); LYMPH % 5.8 %; LYMPH ABS # 0.98 K/uL (1.2-3.4); MONO % 6.2 %; MONO ABS # 1.04 K/uL (0.11-0.59); NEUT % 86.9 %; NEUT ABS # 14.71 K/uL (1.4-6.5); POTASSIUM 5.3 mmol/L (3.5-5.1); TOTAL PROTEIN 8.4 gm/dl (6.4-8.2)
--- NOTE | 2017-10-03 18:31 | DIAGNOSTIC IMAGING REPORT ---
CHEST ONE VIEW PORTABLE CLINICAL HISTORY: weakness COMPARISON STUDY: April 22, 2016 FINDINGS: The cardiac and mediastinal contours remain stable. The heart is mildly enlarged. There is bilateral interstitial thickening most pronounced the left lung base. The findings remain similar to the preceding study. There is a left subclavian single chamber central venous pacemaker. There is blunting of both lateral costophrenic angles. IMPRESSION: No significant change in the interstitial thickening, most pronounced at the left lung base. Suspected trace pleural effusions. Mild cardiomegaly. Electronically signed by: William Woodward M.D. 10/03/2017 6:29 PM Dictated Date/Time: 10/03/2017 6:27 PM
[2017-10-03] MEDS ORDERED: CEFAZOLIN SOD 1000MG/7.5 ML IV PUSH IV STA (18:35)
[2017-10-03] MEDS ORDERED: SODIUM CHLORIDE 0.9% 1000ML 1,000 ML IV STA ×2 (18:36→20:45)
--- NOTE | 2017-10-03 19:50 | DIAGNOSTIC IMAGING REPORT ---
CT SCAN OF THE ABDOMEN AND PELVIS WITHOUT CONTRAST CLINICAL HISTORY: diarrhea, dehydration, leukocytosis COMPARISON STUDY: April 2016 TECHNIQUE: CT scan of the abdomen and pelvis was performed from the lung bases to the proximal femurs. Images are reviewed in the axial, sagittal, and coronal planes. IV contrast was not administered for this examination. A dose lowering technique was utilized adhering to the principles of ALARA. CT DOSE: 1733.30 mGy.cm FINDINGS: Lower chest: There is bilateral gynecomastia. There are dependent atelectatic changes. Liver: No focal hepatic masses are visualized in this noncontrast study. Gallbladder: Surgically absent Spleen: Normal in size and attenuation. Pancreas: There is pancreatic atrophy. No pancreatic masses are visualized. Slight indistinctness the peripancreatic fat remains unchanged from the prior study. There are no definite findings to indicate acute pancreatitis. Adrenal glands: Unremarkable. Kidneys: There is extensive retroperitoneal fat. No renal, ureteral, or bladder calculi are visualized. Bowel: There are no transition zones indicate bowel obstruction. There is colonic diverticulosis. There are no acute peridiverticular inflammatory changes. The appendix is not visualized with certainty. There are no findings to indicate acute appendicitis. Peritoneum: There is a tiny fat-containing umbilical hernia and tiny fat-containing left inguinal hernia. Vasculature: The abdominal aorta is normal in course and caliber. Adenopathy: None. Pelvic viscera: There is mild prostamegaly. Skeletal structures: No destructive osseous lesions are seen. IMPRESSION: 1. No evidence of bowel obstruction. No evidence of free air 2. Gynecomastia 3. Surgically absent gallbladder 4. Mild prostamegaly 5. Stable extensive retroperitoneal fat. 6. Diverticulosis. No evidence of acute diverticulitis. No evidence of acute appendicitis 7. Minor infiltration of the peripancreatic fat, unchanged from the prior study. This likely is a chronic finding. Correlation with appropriate biochemical markers could be obtained to exclude pancreatitis. Electronically signed by: William Woodward M.D. 10/03/2017 7:49 PM Dictated Date/Time: 10/03/2017 7:42 PM
[2017-10-03] MEDS ORDERED: PIPERACILLIN/TAZOBACTAM 3.375 GM/100ML D5W IV STA (20:09)
[2017-10-03] MEDS ORDERED: VANCOMYCIN CONSULT ACTIVE PRN ×2 (20:15→20:30)
[2017-10-03] MEDS ORDERED: ONDANSETRON INJ 2 MG/ML 2 ML VIAL IV PRN (20:30)
[2017-10-03] MEDS ORDERED: POLYETHYLENE (MIRALAX) 17 GM PACK PO PRN (20:30)
[2017-10-03] MEDS ORDERED: PIPERACILL/TAZOBAC CONSULT ACTIVE PRN (20:30)
[2017-10-03] MEDS ORDERED: ALUMINUM/MAGNESIUM/SIMETH (MAALOX MAX) 30 ML UDC PO PRN (20:30)
--- NOTE | 2017-10-03 20:32 | History and Physical ---
History & Physical Date & Time of Service: Oct 03, 2017 at 20:31 Chief Complaint: Weakness, Unable To Care For Himself, Primary Care Physician: Robin Whitehead III, CRNP History of Present Illness Source: patient, hospital records 81 yo M with a PMHx of CHF, CKD stage III, DM II, HTN, HLD, A-fib, BPH, anemia and h/o left amputation presenting with LLE pain, swelling, and generalized weakness. Pain at his stump 2 days and interval development of RLE pain and swelling. Patient was in ED yesterday and significant RLE cellulitis was not noted. He was given for RLE pain. Patient also reports nausea. He denies fever , chills, abdominal pain. In the ED today , Patient was found to be afebrile normotensive, with a elevated WBC ct of 16.9 from 09/12 the previous day, Elevated Cr of 4.1 from 3.29 on previous day ( baseline 1.5-2.4). Femur XR of LLE stump from 10/02 was negative. Foot XR, Tib/Fib XR of the RLE today were negative for acute changes other than tissue swelling. Past Medical/Surgical History Medical Problems: (1) A-fib (2) Abdominal distension (3) Abdominal pain (4) Acute kidney injury (5) Acute pyelonephritis (6) Anemia (7) Arthritis (8) Cellulitis of right lower extremity (9) CHF (congestive heart failure) (10) Current use of joint terminal attack controller anticoagulation (11) Diabetes (12) Dyspnea (13) GI bleed (14) GI bleed (15) Heart disease (16) Hyperkalemia (17) Hyperkalemia (18) Hypertension (19) Hypoglycemia (20) Hyponatremia (21) Illness (22) Kidney disease (23) Leg pain, left (24) Pacemaker (25) Rectal bleed (26) Renal insufficiency (27) Seizure (28) Sepsis (29) Shortness of breath (30) Shortness of breath (31) Urinary tract infection Family History Coronary artery disease Myocardial infarction Social History Smoking Status: Never Smoker Smokeless Tobacco Use: No Alcohol Use: none Drug Use: none Marital Status: Housing status: lives alone Occupational Status: retired Immunizations History of Influenza Vaccine: No History of Tetanus Vaccine?: Unknown History of Pneumococcal: Yes Pneumococcal Date: Mar 03, 2009 History of Hepatitis B Vaccine: Unknown Allergies Coded Allergies: Sulfa Antibiotics (Verified Allergy, Unknown, HAS TOLERATED BUMEX, 10/03/17 ) Home Medications Scheduled Acetaminophen (8 Hour Pain Reliever), 1,300 MG PO QPM Acetaminophen (Acetaminophen Extra Stren), 1,000 MG PO QAM Artificial Tear Solution (Artificial Tears), 1 DROPS OP QID Aspirin (Aspirin Ec), 81 MG PO DAILY Furosemide (Lasix), 2 TABS PO AMPM Insulin Human NPH (Novolin N), 40 UNITS SC BID Magnesium Hydroxide (Milk Of Magnesia), 30 ML PO DAILY Potassium Chloride Microencaps (Potassium Chloride Er), 5 MEQ PO QPM Ranitidine (Zantac), 150 MG PO BID Simvastatin (Zocor), 40 MG PO QPM Spironolactone (Spironolactone), 25 MG PO QAM Miscellaneous Medications Multiple Vitamins W/ Minerals (Multivitamin) Review of Systems Constitutional: No fever, No chills Respiratory: + shortness of breath, No cough Cardiovascular: No chest pain, No edema, No palpitations Abdomen: No pain, No nausea, No vomiting Musculoskeletal: + problem reported (s/p Left BKA) Genitourinary - Male: No hematuria, No dysuria Neurologic: No paralysis, No numbness/tingling Integumentary: + problem reported (RLE redness/swelling) Physical Exam Vital Signs Date Time Temp Pulse Resp B/P (MAP) Pulse Ox O2 Delivery O2 Flow Rate FiO2 10/03/17 19:18 60 20 121/63 98 Room Air 10/03/17 18:04 66 24 112/61 98 Room Air 10/03/17 16:19 37.1 68 16 119/62 98 Room Air GENERAL: alert, obese EYE EXAM: normal conjunctiva, PERRL and EOM's grossly intact OROPHARYNX: no exudate, no erythema, lips, buccal mucosa, and tongue normal and mucous membranes are moist NECK: supple, no nuchal rigidity, no adenopathy, non-tender LUNGS: Clear to auscultation. Normal chest wall mechanics HEART: no murmurs, S1 normal and S2 normal ABDOMEN: abdomen soft, non-tender, normo-active bowel sounds, no masses, no rebound or guarding. BACK: Back is symmetrical on inspection and there is no deformity UPPER EXTREMITIES: upper extremities are grossly normal. LOWER EXTREMITIES: LLE: s/p BKA RLE: erythema, significant swelling from foot to inferior to knee, tender to touch NEURO EXAM: Normal sensorium, cranial nerves II-XII grossly intact, normal speech. Diagnostics Laboratory Results Results Past 24 Hours Test 10/03/17 17:25 10/03/17 17:54 10/03/17 19:12 Range/Units White Blood Count 16.90 4.8-10.8 K/uL Red Blood Count 4.46 4.7-6.1 M/uL Hemoglobin 12.8 14.0-18.0 g/dL Hematocrit 39.3 42-52 % Mean Corpuscular Volume 88.1 80-100 fL Mean Corpuscular Hemoglobin 28.7 25-34 pg Mean Corpuscular Hemoglobin Concent 32.6 32-36 g/dl Platelet Count 93 130-400 K/uL Mean Platelet Volume 11.2 7.4-10.4 fL Neutrophils (%) (Auto) 86.9 % Lymphocytes (%) (Auto) 5.8 % Monocytes (%) (Auto) 6.2 % Eosinophils (%) (Auto) 0.1 % Basophils (%) (Auto) 0.1 % Neutrophils # (Auto) 14.71 1.4-6.5 K/uL Lymphocytes # (Auto) 0.98 1.2-3.4 K/uL Monocytes # (Auto) 1.04 0.11-0.59 K/uL Eosinophils # (Auto) 0.01 0-0.5 K/uL Basophils # (Auto) 0.01 0-0.2 K/uL RDW Standard Deviation 49.9 36.4-46.3 fL RDW Coefficient of Variation 15.6 11.5-14.5 % Immature Granulocyte % (Auto) 0.9 % Immature Granulocyte # (Auto) 0.15 0.00-0.02 K/uL Dohle Bodies 1+ Prothrombin Time 14.9 9.0-12.0 SECONDS Prothromb Time International Ratio 1.4 0.9-1.1 Sodium Level 132 136-145 mmol/L Potassium Level 5.3 3.5-5.1 mmol/L Chloride Level 96 98-107 mmol/L Carbon Dioxide Level 26 21-32 mmol/L Anion Gap 10.0 3-11 mmol/L Blood Urea Nitrogen 100 7-18 mg/dl Creatinine 4.11 0.60-1.40 mg/dl Est Creatinine Clear Calc Drug Dose 18.4 ml/min Estimated GFR () 14.9 Estimated GFR (Non- 12.8 BUN/Creatinine Ratio 24.3 10-20 Random Glucose 184 70-99 mg/dl Calcium Level 9.4 8.5-10.1 mg/dl Magnesium Level 3.6 1.8-2.4 mg/dl Total Bilirubin 2.9 0.2-1 mg/dl Aspartate Amino Transf (AST/SGOT) 59 15-37 U/L Alanine Aminotransferase (ALT/SGPT) 56 12-78 U/L Alkaline Phosphatase 185 45-117 U/L Troponin I 0.040 0-0.045 ng/ml Pro-B-Type Natriuretic Peptide 3836 0-1800 pg/ml Total Protein 8.4 6.4-8.2 gm/dl Albumin 3.4 3.4-5.0 gm/dl Globulin 5.0 2.5-4.0 gm/dl Albumin/Globulin Ratio 0.7 0.9-2 Urine Color DK YELLOW Urine Appearance CLEAR CLEAR Urine pH 7.0 4.5-7.5 Urine Specific [place] 1.014 1.000-1.030 Urine Protein NEG NEG Urine Glucose (UA) NEG NEG Urine Ketones NEG NEG Urine Occult Blood NEG NEG Urine Nitrite NEG NEG Urine Bilirubin NEG NEG Urine Urobilinogen NEG NEG Urine Leukocyte Esterase NEG NEG Bedside Lactic Acid Venous 3.07 0.90-1.70 mmol/L Microbiology Results 10/03/17 Blood Culture, Received Pending 10/03/17 Blood Culture, Received Pending 10/03/17 C.difficile Toxin B Gene (PCR), Received Pending 10/03/17 Shiga Toxin Test, Received Pending 10/03/17 Stool Culture, Received Pending Diagnostic Radiology CHEST ONE VIEW PORTABLE CLINICAL HISTORY: weakness COMPARISON STUDY: April 22, 2016 FINDINGS: The cardiac and mediastinal contours remain stable. The heart is mildly enlarged. There is bilateral interstitial thickening most pronounced the left lung base. The findings remain similar to the preceding study. There is a left subclavian single chamber central venous pacemaker. There is blunting of both lateral costophrenic angles. IMPRESSION: No significant change in the interstitial thickening, most pronounced at the left lung base. Suspected trace pleural effusions. Mild cardiomegaly. Electronically signed by: William Woodward M.D. 10/03/2017 6:29 PM Dictated Date/Time: 10/03/2017 6:27 PM [~ rep ct add3]] CT SCAN OF THE ABDOMEN AND PELVIS WITHOUT CONTRAST CLINICAL HISTORY: diarrhea, dehydration, leukocytosis COMPARISON STUDY: April 2016 TECHNIQUE: CT scan of the abdomen and pelvis was performed from the lung bases to the proximal femurs. Images are reviewed in the axial, sagittal, and coronal planes. IV contrast was not administered for this examination. A dose lowering technique was utilized adhering to the principles of ALARA. CT DOSE: 1733.30 mGy.cm FINDINGS: Lower chest: There is bilateral gynecomastia. There are dependent atelectatic changes. Liver: No focal hepatic masses are visualized in this noncontrast study. Gallbladder: Surgically absent Spleen: Normal in size and attenuation. Pancreas: There is pancreatic atrophy. No pancreatic masses are visualized. Slight indistinctness the peripancreatic fat remains unchanged from the prior study. There are no definite findings to indicate acute pancreatitis. Adrenal glands: Unremarkable. Kidneys: There is extensive retroperitoneal fat. No renal, ureteral, or bladder calculi are visualized. Bowel: There are no transition zones indicate bowel obstruction. There is colonic diverticulosis. There are no acute peridiverticular inflammatory changes. The appendix is not visualized with certainty. There are no findings to indicate acute appendicitis. Peritoneum: There is a tiny fat-containing umbilical hernia and tiny fat-containing left inguinal hernia. Vasculature: The abdominal aorta is normal in course and caliber. Adenopathy: None. Pelvic viscera: There is mild prostamegaly. Skeletal structures: No destructive osseous lesions are seen. IMPRESSION: 1. No evidence of bowel obstruction. No evidence of free air 2. Gynecomastia 3. Surgically absent gallbladder 4. Mild prostamegaly 5. Stable extensive retroperitoneal fat. 6. Diverticulosis. No evidence of acute diverticulitis. No evidence of acute appendicitis 7. Minor infiltration of the peripancreatic fat, unchanged from the prior study. This likely is a chronic finding. Correlation with appropriate biochemical markers could be obtained to exclude pancreatitis. Electronically signed by: William Woodward M.D. 10/03/2017 7:49 PM Dictated Date/Time: 10/03/2017 7:42 PM R TIBIA/FIBULA 2 VIEWS ROUTINE CLINICAL HISTORY: Right lower leg pain COMPARISON: None. DISCUSSION: There are postsurgical changes of a total right knee arthroplasty. No acute fractures or dislocations are visualized. There is prominent soft tissue edema at the level the ankle. IMPRESSION: Prominent soft tissue swelling at the level the ankle. No fractures identified. Electronically signed by: William Woodward M.D. 10/03/2017 9:02 PM Dictated Date/Time: 10/03/2017 9:01 PM [~ rep ct add3]] R FOOT MIN 3 VIEWS ROUTINE CLINICAL HISTORY: Right foot pain COMPARISON: None. DISCUSSION: There is pronounced soft tissue edema. No acute fractures are visualized. No destructive lesions are visualized on conventional radiographic imaging. There are mild degenerative changes. The bones are mildly osteopenic. IMPRESSION: Pronounced soft tissue swelling. No fractures identified. No destructive lesions are visualized on conventional radiographic imaging. Electronically signed by: William Woodward M.D. 10/03/2017 9:03 PM Dictated Date/Time: 10/03/2017 9:02 PM Impression Assessment and Plan 81 yo M with a PMHx of CHF, CKD stage III, DM II, HTN, HLD, A-fib, BPH, anemia and h/o left amputation presenting with LLE pain, swelling, and generalized weakness admitted for RLE cellulitis found to have Leukocytosis, Acute on Chronic Kidney injury. In the ED , Patient was found to be afebrile normotensive, with a elevated WBC ct of 16.9 from 09/12 the previous day, Elevated Cr of 4.1 from 3.29 on previous day ( baseline 1.5-2.4). Femur XR of LLE stump from 10/02 was negative. Foot XR, Tib/Fib XR of the RLE today were negative for acute changes other than tissue swelling. He was given 1L bolus NS x2 RLE Cellulitis, Leukocytosis, Elevated Lactate - painful tenderness, erythema, swelling of RLE from toes to below the knee - XR Foot, Tib/FIB, negative - infection likely entered via LE venous ulcer - Lactate on arrival 3.07( POC) - Start empiric Vanc, Zosyn - F/u Blood cultures - Consented for PICC line - Repeat Lactate - Hold Lasix Acute on Chronic Kidney injury - worsened from yesterday - Elevated Cr of 4.1 from 3.29 on previous day ( baseline 1.5-2.4) - likely due to hypoperfusion - IV fluid as above - Hold Lasix - F/u repeat bmp Venous stasis Ulcer - likely entry point leading to cellulitis - wound care consult Chronic Diastolic CHF, Afib, HTN - not in exacerbation - Held antihypertensives given cellulitis, possible sepsis - Monitor volume status, i/o, daily weight T2DM - ISS HTN, HLD -hold antihypertensives -Monitor BP -Continue Statin GERD - Zantac Disp: Admit to Telemetry DVT ppx: Heparin qq Attending addendum: I have physically seen this patient, have supervised the medical residents activities, and agree with the H&P unless as otherwise noted. Assessment and Plan: Diabetic right lower extremity cellulitis/sepsis-- Placed on vancomycin IV and Zosyn IV. PICC line. Follow clinical exam closely, has left lower extremity began this way and ultimately led to amputation. AK I on CKD-- Creatinine 4.1 upon admission with baseline 1.5-2.4. Hold Lasix ,spironolactone, and potassium. Place on NSS at 80 mils per hour. He did receive 2 L normal saline in ED. Follow serial CMP and magnesium levels. Diabetes mellitus-- Has no appetite this time. Would cut his usual Novolin N from 40 units subcu twice daily to 20 units subcu twice daily. Placed on Accu-Cheks before meals and at bedtime with NovoLog coverage per scale. Hyperlipidemia-- Continue simvastatin 40 mg in the evening. GERD-- Continue ranitidine 150 mg p.o. twice daily. This patient will need to be followed very closely, as he has been known be to become septic and require ICU support in the past. Advanced Directives Existing Advance Directive: No Existing Living Will: No Existing Power of Lab Pack Chemist: No Resuscitation Status VTE Prophylaxis Will order VTE Prophylaxis: Yes Note Total Time: Critical Care 30 - 74 minutes Resident Tracking Resident Involvement: Resident Care Provided Care Provided: Adult Hospital Medicine
[2017-10-03] MEDS ORDERED: VANCOMYCIN IV 1,000 MG in SODIUM CHLORIDE 0.9% 250ML 250 ML IV SCH (21:00)
--- NOTE | 2017-10-03 21:03 | DIAGNOSTIC IMAGING REPORT ---
R TIBIA/FIBULA 2 VIEWS ROUTINE CLINICAL HISTORY: Right lower leg pain COMPARISON: None. DISCUSSION: There are postsurgical changes of a total right knee arthroplasty. No acute fractures or dislocations are visualized. There is prominent soft tissue edema at the level the ankle. IMPRESSION: Prominent soft tissue swelling at the level the ankle. No fractures identified. Electronically signed by: William Woodward M.D. 10/03/2017 9:02 PM Dictated Date/Time: 10/03/2017 9:01 PM
--- NOTE | 2017-10-03 21:04 | DIAGNOSTIC IMAGING REPORT ---
R FOOT MIN 3 VIEWS ROUTINE CLINICAL HISTORY: Right foot pain COMPARISON: None. DISCUSSION: There is pronounced soft tissue edema. No acute fractures are visualized. No destructive lesions are visualized on conventional radiographic imaging. There are mild degenerative changes. The bones are mildly osteopenic. IMPRESSION: Pronounced soft tissue swelling. No fractures identified. No destructive lesions are visualized on conventional radiographic imaging. Electronically signed by: William Woodward M.D. 10/03/2017 9:03 PM Dictated Date/Time: 10/03/2017 9:02 PM
[2017-10-03] MEDS ORDERED: VANCOMYCIN IV 2,500 MG in SODIUM CHLORIDE 0.9% 500ML 500 ML IV ONE (22:00)
--- NOTE | 2017-10-03 22:42 | Pharmacy Progress Note ---
Pharmacy Abx Initial Consult Date of Service Oct 03, 2017. Pharmacy Dosing Scope Date of Consult: 10/03/17 Consultation requested by: Dr. Palencia Pharmacy is consulted to initiate Vancomycin and Zosyn IV dosing therapy, order appropriate labs and adjust drug dose/frequency. Objective Height (Feet): 5 Height (Inches): 9.00 Weight (Kilograms): 120.400 Vital Signs (Past 12Hrs) Vital Signs Past 12 Hours Date Time Temp Pulse Resp B/P (MAP) Pulse Ox O2 Delivery O2 Flow Rate FiO2 10/03/17 22:24 60 18 117/59 98 Room Air 10/03/17 19:18 60 20 121/63 98 Room Air 10/03/17 18:04 66 24 112/61 98 Room Air 10/03/17 16:19 37.1 68 16 119/62 98 Room Air Lab Results (24Hrs) Laboratory Tests (24 Hours) Test 10/03/17 17:25 White Blood Count 16.90 K/uL (4.8-10.8) H Red Blood Count 4.46 M/uL (4.7-6.1) L Hemoglobin 12.8 g/dL (14.0-18.0) L Hematocrit 39.3 % (42-52) L Mean Corpuscular Volume 88.1 fL (80-100) Mean Corpuscular Hemoglobin 28.7 pg (25-34) Mean Corpuscular Hemoglobin Concent 32.6 g/dl (32-36) Platelet Count 93 K/uL (130-400) L Mean Platelet Volume 11.2 fL (7.4-10.4) H Neutrophils (%) (Auto) 86.9 % Lymphocytes (%) (Auto) 5.8 % Monocytes (%) (Auto) 6.2 % Eosinophils (%) (Auto) 0.1 % Basophils (%) (Auto) 0.1 % Neutrophils # (Auto) 14.71 K/uL (1.4-6.5) H Lymphocytes # (Auto) 0.98 K/uL (1.2-3.4) L Monocytes # (Auto) 1.04 K/uL (0.11-0.59) H Eosinophils # (Auto) 0.01 K/uL (0-0.5) Basophils # (Auto) 0.01 K/uL (0-0.2) Micro Results Date/Time Source Procedure Growth Status 10/03/17 19:06 Blood Blood Culture Pending Received 10/03/17 17:25 Blood Blood Culture Pending Received 10/03/17 18:08 Stool C.difficile Toxin B Gene (PCR) - Final No C. difficile toxin B gene detected Complete 10/03/17 18:08 Stool Shiga Toxin Test Pending Received 10/03/17 18:08 Stool Stool Culture Pending Received Risk Factors for Resistance * History of infection with a multidrug-resistant organism: MRSA, knee drainage 2007 Assessment & Plan Assessment 81 year old male admitted with dehydration, weakness and cellulitis. Started on empiric vancomycin and zosyn IV. Plan Vancomycin IV * Loading dose: 2500 mg (~20 mg/kg) * Goal trough level for cellulitis : 15 to 20 mcg/mL * Acute on chronic renal impairment. Current Scr of 4.11 mg/dL (baseline appears to be 2.2-2.4 mg/dL). * A single dose of vancomycin IV will be given now. Further dosing to be determined on 10/04 am once additional lab data is available. Piperacillin/tazobactam * 4.5 g bolus administered over 30 minutes, then 4.5 g IV extended infusion every 12 hours for CrCl 20 mL/min or less and dialysis. * Aggressive dosing selected due to critically ill status/BMI 35 or more/ history of cystic fibrosis. Pharmacy will continue to follow and will adjust dose/frequency as necessary. Thank you.
[2017-10-03] MEDS: MoRPHine SULFATE 4 MG/ML 1 ML CARP\\VIAL IV PRN (22:50)
[2017-10-03] MEDS: SODIUM CHLORIDE 0.9% 1000ML 1,000 ML IV SCH (22:50)
[2017-10-03 23:29] VITALS: BP 102/53; PULSE 62; TEMP 36.4; O2SAT 98; BMI 36.0
[2017-10-03] MEDS: RANITIDINE HCL 150 MG TAB PO SCH (23:35)
[2017-10-03] MEDS: SIMVASTATIN 40 MG TAB PO SCH (23:35)
[2017-10-03] MEDS: HEPARIN SOD 5000 UNIT/0.5 ML CARP SQ SCH (23:37)
[2017-10-04] VITALS: O2SAT 98
[2017-10-04] MEDS ORDERED: GLUCAGON FOR INJ 1 MG VIAL SQ PRN
[2017-10-04] MEDS ORDERED: GLUCOSE 40% GEL 15 GM TUBE PO PRN
[2017-10-04] MEDS ORDERED: CARBOHYDRATES FOR HYPOGLYCEMIA PO PRN
[2017-10-04] MEDS ORDERED: DEXTROSE 50% 50 ML SYR IV PRN
[2017-10-04] MEDS ORDERED: GLUCOSE 10 TABS/TUBE PO PRN
[2017-10-04] MEDS: PIPERACILL/TAZOBAC IV 4.5 GM in DEXTROSE 5% 100ML 100 ML IV SCH ×2 (05:01→15:54)
[2017-10-04] MEDS: MoRPHine SULFATE 4 MG/ML 1 ML CARP\\VIAL IV PRN (05:05)
[2017-10-04 06:59] VITALS: BP 119/66; PULSE 61; TEMP 36.5; O2SAT 95
[2017-10-04 08:00] VITALS: O2SAT 95
[2017-10-04] MEDS: ACETAMINOPHEN 500 MG TAB PO SCH (08:17)
[2017-10-04] MEDS: RANITIDINE HCL 150 MG TAB PO SCH ×2 (08:18→20:55)
[2017-10-04] MEDS: ASPIRIN 81 MG ECTAB PO SCH (08:18)
[2017-10-04] MEDS: HEPARIN SOD 5000 UNIT/0.5 ML CARP SQ SCH ×2 (08:27→21:02)
--- NOTE | 2017-10-04 08:27 | Clinical Documentation Query ---
CLINICAL DOCUMENTATION QUERY 81-y/o male who presents with a RLE cellulitis. Patient presented with leukocytosis, elevated lactic acid level, low platelet count, hyperglycemia, elevated total bilirubin and elevated creatinine. Query #1/2 In your clinical opinion is this patient being managed for: ( x ) Sepsis POA in setting of RLE cellulitis ( ) Not Agree ( ) Other explanation of clinical findings (No explanation is considered a No Response) ( ) Unable to determine ( ) Need to Discuss (Phone CDS or qliq) (No discussion is considered a No Response) The medical record reflects the following clinical findings, treatment, and risk factors. Clinical Indicators: WBC 16.90, PLT 93, Lactic acid 3.4, random glucose 184, BUN 100, Creatinine 4.11, Total Bilirubin 2.9, SOFA score of 6. SOFA score >2 signify's organ dysfunction. Treatment: IV bolus then primary, IV zosyn, IV Vancomycin, IV Cefazolin, telemetry monitoring, WOCN consult, PICC line access, BC x2, Risk Factors: Age, cellulitis, DM, Query #2/2 In your clinical opinion is this patient being managed for: ( x ) THOMAS with ATN evidence by BUN 100, Creatinine of 4.11, GFR 12.8 in setting of Sepsis and dehydration. ( ) Not Agree ( ) Other explanation of clinical findings (No explanation is considered a No Response) ( ) Unable to determine ( ) Need to Discuss (Phone CDS or qliq) (No discussion is considered a No Response) The medical record reflects the following clinical findings, treatment, and risk factors. Clinical Indicators: BUN 100, Creatinine 4.11, GFR 12.8. Treatment: IV bolus then primary, strict I/O's, daily weights, Risk Factors: Infection, sepsis, dehydration, Please clarify and document your clinical opinion in the progress notes and discharge summary. Terms such as "probable", "suspected", "likely", "questionable", "possible", or "still to be ruled out" are acceptable. IF IN AGREEMENT, YOU MUST DOCUMENT ABOVE DIAGNOSTIC STATEMENT IN DAILY PROGRESS NOTES AND DISCHARGE SUMMARY. This document is not part of the patient's record. Thank You, Lion Vail, RN [phone] & via qlicCONNECT
[2017-10-04] MEDS: INSULIN ASPART 100 UNITS/ML 3 ML PEN SC SCH ×4 (08:32→21:02)
[2017-10-04] MEDS: SODIUM CHLORIDE 0.9% 1000ML 1,000 ML IV SCH ×2 (08:33→20:54)
[2017-10-04 09:12] LABS: HEMATOCRIT 37.4 % (42-52); HEMOGLOBIN 12.5 g/dL (14.0-18.0); MEAN CELL VOLUME 87.6 fL (80-100); MEAN CORPUSCULAR HEMOGLOBIN 29.3 pg (25-34); MEAN CORPUSCULAR HGB CONC 33.4 g/dl (32-36); RED CELL DISTRIBUTION WIDTH CV 15.5 % (11.5-14.5); RED CELL DISTRIBUTION WIDTH SD 49.1 fL (36.4-46.3); WHITE BLOOD COUNT 16.02 K/uL (4.8-10.8)
[2017-10-04 09:27] LABS: MEAN PLATELET VOLUME 10.8 fL (7.4-10.4); PLATELET COUNT 94 K/uL (130-400)
[2017-10-04 09:42] LABS: BASO % 0.1 %; BASO ABS # 0.01 K/uL (0-0.2); EOS % 0.1 %; EOS ABS # 0.01 K/uL (0-0.5); IG# 0.09 K/uL (0.00-0.02); MONO % 8.7 %; NEUT % 85.5 %; NEUT ABS # 13.71 K/uL (1.4-6.5)
[2017-10-04 09:58] LABS: ALBUMIN 2.8 gm/dl (3.4-5.0); CALCIUM 8.6 mg/dl (8.5-10.1); CREATININE 3.93 mg/dl (0.60-1.40); TOTAL PROTEIN 7.4 gm/dl (6.4-8.2)
[2017-10-04 12:21] VITALS: Ht 182.9 cm; Wt 102.4 kg
[2017-10-04] MEDS: MAGNESIUM HYDROXIDE SUSP 30 ML UDC PO PRN (15:59)
[2017-10-04 16:00] VITALS: BP 117/61; PULSE 61; TEMP 36.7; O2SAT 96; O2SAT 97
--- NOTE | 2017-10-04 16:36 | Pharmacy Progress Note ---
Pharmacy Abx Dose Short Note Date of Service Oct 04, 2017. Assessment & Plan Assessment * 81 year old male receiving vancomycin and Zosyn for treatment of cellulitis * Day # 2 of antimicrobial therapy. Plan Vancomycin * Random level of 20.3 mcg/mL is just slighly above therapeutic. * Ordered one time dose of 1500mg to be given today at 1700 * Goal trough level : 15 to 20 mcg/mL * Trough or random level ordered for: tomorrow morning with AM labs Zosyn * Patient is currently on 4.5g Q12H, which is appropriate for BMI > 35 and CrCl < 20ml/min Pharmacy will continue to follow and will adjust dose/frequency as necessary. Thank you.
[2017-10-04] MEDS ORDERED: SENNA 8.6 MG TAB PO ONE (17:00)
[2017-10-04] MEDS ORDERED: VANCOMYCIN IV 1,500 MG in SODIUM CHLORIDE 0.9% 500ML 500 ML IV ONE (17:00)
--- NOTE | 2017-10-04 17:25 | Family Medicine Progress Note ---
Progress Note Date of Service Oct 04, 2017. Subjective Patient resting comfortably in bed this morning. Had just finished breakfast. Quite somnolent, not alert to place or time. Per nursing had just had a dose of morphine. Denied pain in his legs. ROS See HPI for pertinent positives and negatives. Limited due to patient's mental status. Medications Current Inpatient Medications Medications (Trade) Dose Ordered Sig/Melvin Route Start Time Stop Time Status Last Admin Dose Admin Heparin Sodium (Porcine) (Heparin Sq 5000 Unit/0.5ml) 5,000 unit Q12 SQ 10/03/17 23:00 11/02/17 22:59 10/04/17 08:27 5,000 UNIT Sodium Chloride 1,000 ml @ 100 mls/hr Q10H IV 10/03/17 22:45 11/02/17 22:44 10/04/17 08:33 100 MLS/HR Acetaminophen (Tylenol Tab) 650 mg Q4H PRN PO 10/03/17 20:30 11/02/17 20:29 Al Hydrox/Mg Hydrox/Simethicone (Maalox Max Susp) 15 ml Q4H PRN PO 10/03/17 20:30 11/02/17 20:29 Magnesium Hydroxide (Milk Of Magnesia Susp) 30 ml Q12H PRN PO 10/03/17 20:30 11/02/17 20:29 10/04/17 15:59 30 ML Ondansetron HCl (Zofran Inj) 4 mg Q6H PRN IV 10/03/17 20:30 11/02/17 20:29 Polyethylene (Miralax Powder Packet) 17 gm DAILY PRN PO 10/03/17 20:30 11/02/17 20:29 Vancomycin HCl (Consult) 1 ea UD PRN N/A 10/03/17 20:30 11/02/17 20:29 Piperacillin Sod/ Tazobactam Sod 4.5 gm/Dextrose 120 ml @ 30 mls/hr Q12H IV 10/04/17 04:00 10/13/17 19:59 10/04/17 15:54 30 MLS/HR Miscellaneous Information (Consult) 1 ea UD PRN N/A 10/03/17 20:30 11/02/17 20:29 Acetaminophen (Tylenol Tab) 1,000 mg QAM PO 10/04/17 09:00 11/03/17 08:59 10/04/17 08:17 1,000 MG Aspirin (Ecotrin Tab) 81 mg DAILY PO 10/04/17 09:00 11/03/17 08:59 10/04/17 08:18 81 MG Ranitidine HCl (zANTac TAB) 150 mg BID PO 10/03/17 21:00 11/02/17 20:59 10/04/17 08:18 150 MG Simvastatin (Zocor Tab) 40 mg QPM PO 10/03/17 21:00 11/02/17 20:59 10/03/17 23:35 40 MG Morphine Sulfate (MoRPHine SULFATE INJ) 4 mg Q4H PRN IV 10/03/17 22:30 10/17/17 22:29 10/04/17 05:05 4 MG Insulin Aspart (novoLOG ASPART) SLIDING SCALE If C... ACHS SC 10/04/17 06:30 11/03/17 06:29 10/04/17 13:32 10 UNITS Glucose (Glucose 40% Gel) 15-30 GRAMS 15 GRAMS... UD PRN PO 10/04/17 00:00 11/03/17 00:00 Glucose (Glucose Chew Tab) 4-8 Tablets 4 Tabl... UD PRN PO 10/04/17 00:00 11/03/17 00:00 Dextrose (Dextrose 50% 50ML Syringe) 25-50ML 25ML FOR ... UD PRN IV 10/04/17 00:00 11/03/17 00:00 Glucagon (Glucagon Inj) 1 mg UD PRN SQ 10/04/17 00:00 11/03/17 00:00 Carbohydrates (Carbohydrates For Hypoglycemia) 15-30 GRAMS 15 grams if BSG 54-69... UD PRN PO 10/04/17 00:00 11/03/17 00:00 Vancomycin HCl 1500 mg/Sodium Chloride 530 ml @ 200 mls/hr ONE ONCE IV 10/04/17 17:00 10/04/17 19:38 Senna (Senokot Tab) 8.6 mg QAM PO 10/05/17 09:00 11/04/17 08:59 Senna (Senokot Tab) 8.6 mg 1700 ONCE PO 10/04/17 17:00 10/04/17 17:01 Objective Vital Signs Date Time Temp Pulse Resp B/P (MAP) Pulse Ox O2 Delivery O2 Flow Rate FiO2 10/04/17 16:00 36.7 61 19 117/61 (79) 96 Room Air 10/04/17 16:00 97 Room Air 10/04/17 08:00 95 Room Air 10/04/17 06:59 36.5 61 16 119/66 (83) 95 Room Air 10/04/17 00:00 98 Room Air 10/04/17 00:00 98 Room Air 10/03/17 23:29 36.4 62 20 102/53 98 Room Air 10/03/17 22:24 60 18 117/59 98 Room Air 10/03/17 19:18 60 20 121/63 98 Room Air 10/03/17 18:04 66 24 112/61 98 Room Air Physical Exam Notes: GENERAL: Somnolent but arousable, in no distress HENT: Normocephalic, atraumatic. EYES: Normal conjunctiva. Sclera non-icteric. NECK: Supple. Full range of motion. no JVD RESPIRATORY: Clear to auscultation. CARDIAC: Regular rate, normal rhythm. Extremities warm and well perfused. Pulses equal. ABDOMEN: Soft, non-distended. No tenderness to palpation. No rebound or guarding. No masses. LOWER EXTREMITIES: Right lower extremity with swelling, 2+ edema, moderate to severe erythema up to just below the knee, not surpassing line drawn there. Left lower extremity status post amputation. SKIN: Erythema of right lower extremity, no draining lesions, or open wounds. Laboratory Results 10/04/17 08:52 Red Blood Count 4.27, Mean Corpuscular Volume 87.6, Mean Corpuscular Hemoglobin 29.3, Mean Corpuscular Hemoglobin Concent 33.4, Mean Platelet Volume 10.8, Neutrophils (%) (Auto) 85.5, Lymphocytes (%) (Auto) 5.0, Monocytes (%) (Auto) 8.7, Eosinophils (%) (Auto) 0.1, Basophils (%) (Auto) 0.1, Neutrophils # (Auto) 13.71, Lymphocytes # (Auto) 0.80, Monocytes # (Auto) 1.40, Eosinophils # (Auto) 0.01, Basophils # (Auto) 0.01 10/04/17 08:52 Test 10/03/17 17:25 10/03/17 17:54 10/03/17 19:12 10/04/17 08:52 Dohle Bodies 1+ Prothrombin Time 14.9 SECONDS (9.0-12.0) Prothromb Time International Ratio 1.4 (0.9-1.1) Magnesium Level 3.6 mg/dl (1.8-2.4) Troponin I 0.040 ng/ml (0-0.045) Pro-B-Type Natriuretic Peptide 3836 pg/ml (0-1800) Urine Color DK YELLOW Urine Appearance CLEAR (CLEAR) Urine pH 7.0 (4.5-7.5) Urine Specific Gary 1.014 (1.000-1.030) Urine Protein NEG (NEG) Urine Glucose (UA) NEG (NEG) Urine Ketones NEG (NEG) Urine Occult Blood NEG (NEG) Urine Nitrite NEG (NEG) Urine Bilirubin NEG (NEG) Urine Urobilinogen NEG (NEG) Urine Leukocyte Esterase NEG (NEG) Bedside Lactic Acid Venous 3.07 mmol/L (0.90-1.70) White Blood Count 16.02 K/uL (4.8-10.8) Red Blood Count 4.27 M/uL (4.7-6.1) Hemoglobin 12.5 g/dL (14.0-18.0) Hematocrit 37.4 % (42-52) Mean Corpuscular Volume 87.6 fL (80-100) Mean Corpuscular Hemoglobin 29.3 pg (25-34) Mean Corpuscular Hemoglobin Concent 33.4 g/dl (32-36) Platelet Count 94 K/uL (130-400) Mean Platelet Volume 10.8 fL (7.4-10.4) Neutrophils (%) (Auto) 85.5 % Lymphocytes (%) (Auto) 5.0 % Monocytes (%) (Auto) 8.7 % Eosinophils (%) (Auto) 0.1 % Basophils (%) (Auto) 0.1 % Neutrophils # (Auto) 13.71 K/uL (1.4-6.5) Lymphocytes # (Auto) 0.80 K/uL (1.2-3.4) Monocytes # (Auto) 1.40 K/uL (0.11-0.59) Eosinophils # (Auto) 0.01 K/uL (0-0.5) Basophils # (Auto) 0.01 K/uL (0-0.2) RDW Standard Deviation 49.1 fL (36.4-46.3) RDW Coefficient of Variation 15.5 % (11.5-14.5) Immature Granulocyte % (Auto) 0.6 % Immature Granulocyte # (Auto) 0.09 K/uL (0.00-0.02) Anion Gap 10.0 mmol/L (3-11) Est Creatinine Clear Calc Drug Dose 18.6 ml/min Estimated GFR () 15.7 Estimated GFR (Non- 13.5 BUN/Creatinine Ratio 25.7 (10-20) Lactic Acid Level 2.3 mmol/L (0.4-2.0) Calcium Level 8.6 mg/dl (8.5-10.1) Total Bilirubin 3.4 mg/dl (0.2-1) Aspartate Amino Transf (AST/SGOT) 44 U/L (15-37) Alanine Aminotransferase (ALT/SGPT) 45 U/L (12-78) Alkaline Phosphatase 220 U/L (45-117) Total Protein 7.4 gm/dl (6.4-8.2) Albumin 2.8 gm/dl (3.4-5.0) Globulin 4.6 gm/dl (2.5-4.0) Albumin/Globulin Ratio 0.6 (0.9-2) Test 10/04/17 11:26 10/04/17 14:54 Bedside Glucose 214 mg/dl (70-99) Random Vancomycin Level 20.3 mcg/ml Date/Time Source Procedure Growth Status 10/03/17 18:08 Stool C.difficile Toxin B Gene (PCR) - Final No C. difficile toxin B gene detected Complete Assessment and Plan 81 yo M with a presenting with RLE pain, swelling, and generalized weakness admitted for RLE cellulitis and sepsis PMHx of CHF, CKD stage III, DM II, HTN, HLD, A-fib, BPH, anemia and h/o left amputation Sepsis POA in setting of RLE Cellulitis, Leukocytosis, Elevated Lactate - XR Foot, Tib/FIB, negative -Continue empiric Vanc, Zosyn - Blood cultures pending - Consented for PICC line-we will hold on procedure pending clinical improvement. - Repeat Lactate showed downtrending -Continue to hold Lasix THOMAS -BUN 100, creatinine of 4.1, GFR 12.8 in setting of sepsis and dehydration/ hypoperfusion -Downtrending, 3.9 today ( baseline 1.5-2.4) - continue fluids NSS @ 100 ml/hr - Holding Lasix Venous stasis Ulcer - likely entry point leading to cellulitis - wound care consult Chronic Diastolic CHF, Afib, HTN - last echo Apr 2016 showed normal EF - Held antihypertensives given cellulitis, possible sepsis - Monitor volume status, i/o, daily weight T2DM - ISS -Add Lantus 10 units sq qpm HTN, HLD -Continue hold antihypertensives in light of infection -Monitor BP -Continue Statin GERD -Continue home Zantac FEN GI: NSS @ 100 ml/hr. Full diet. DVT ppx: Heparin 5000 every 12 Disp: Admit to Telemetry Resident Physician Supervision Note: I interviewed and examined the patient. Discussed with Dr. Almendarez and agree with findings and plan as documented in the note. Any exceptions or clarifications are listed here: None Documented By: James Oropeza feeling better than this AM no appetite thinks leg is improving vitals noted fatigued but nad breathing unlabored no pallor or icterus RLE diffuse erythema no areas of fluctuance or open sores or exudate, has receded from the area of demarkation cellulitis, THOMAS, possible sepsis POA (leukocytosis, lactate elevation) -vanco, zosyn, fluids, pain control, supportive care otherwise as above Continued [facility] stay due to: multiple IV medications needed Resident Tracking Resident Involvement: Resident Care Provided Care Provided: Adult Hospital Medicine
[2017-10-04 19:34] VITALS: BP 131/64; PULSE 59; TEMP 36.5; O2SAT 99
[2017-10-04] MEDS: SIMVASTATIN 40 MG TAB PO SCH (20:59)
[2017-10-04] MEDS ORDERED: INSULIN GLARGINE SOLOSTAR 100 UNITS/ML 3 ML PEN SC SCH (21:00)
[2017-10-04] MEDS ORDERED: ACETAMINOPHEN IV 1000MG/100ML IV STA (21:37)
[2017-10-04] MEDS ORDERED: ACETAMINOPHEN IV 1,000 MG in EMPTY BAG 0 ML IV ONE (21:45)
[2017-10-04] MEDS ORDERED: BISACODYL 10 MG SUPP PR STA (22:05)
[2017-10-04 23:59] VITALS: O2SAT 97
[2017-10-05] VITALS (8 sets, daily range): BP systolic 108–157; BP diastolic 64–75; PULSE 59–94; TEMP 35.9–36.8; O2SAT 94–98
[2017-10-05] MEDS: PIPERACILL/TAZOBAC IV 4.5 GM in DEXTROSE 5% 100ML 100 ML IV SCH ×2 (04:00→16:16)
[2017-10-05] MEDS: SODIUM CHLORIDE 0.9% 1000ML 1,000 ML IV SCH ×2 (04:43→20:50)
[2017-10-05 05:49] LABS: HEMATOCRIT 36.4 % (42-52); MEAN CELL VOLUME 86.7 fL (80-100); MEAN CORPUSCULAR HEMOGLOBIN 28.6 pg (25-34); RED CELL DISTRIBUTION WIDTH CV 15.2 % (11.5-14.5); RED CELL DISTRIBUTION WIDTH SD 48.3 fL (36.4-46.3); WHITE BLOOD COUNT 11.81 K/uL (4.8-10.8)
[2017-10-05 06:09] LABS: ALBUMIN 2.5 gm/dl (3.4-5.0); CALCIUM 8.1 mg/dl (8.5-10.1); CREATININE 3.71 mg/dl (0.60-1.40); POTASSIUM 4.5 mmol/L (3.5-5.1); TOTAL PROTEIN 7.1 gm/dl (6.4-8.2)
[2017-10-05 06:32] LABS: MEAN PLATELET VOLUME 10.3 fL (7.4-10.4); PLATELET COUNT 89 K/uL (130-400)
[2017-10-05 06:35] LABS: BASO % 0.2 %; BASO ABS # 0.02 K/uL (0-0.2); EOS % 0.4 %; EOS ABS # 0.05 K/uL (0-0.5); IG# 0.03 K/uL (0.00-0.02); LYMPH ABS # 0.71 K/uL (1.2-3.4); MONO % 11.7 %; MONO ABS # 1.38 K/uL (0.11-0.59); NEUT % 81.4 %; NEUT ABS # 9.62 K/uL (1.4-6.5)
[2017-10-05] MEDS: ACETAMINOPHEN 500 MG TAB PO SCH (07:54)
[2017-10-05] MEDS: ASPIRIN 81 MG ECTAB PO SCH (07:54)
[2017-10-05] MEDS: RANITIDINE HCL 150 MG TAB PO SCH ×2 (07:54→20:45)
[2017-10-05] MEDS: SENNA 8.6 MG TAB PO SCH (07:54)
[2017-10-05] MEDS: INSULIN ASPART 100 UNITS/ML 3 ML PEN SC SCH ×4 (08:46→20:51)
[2017-10-05] MEDS: HEPARIN SOD 5000 UNIT/0.5 ML CARP SQ SCH ×2 (08:47→20:52)
[2017-10-05] MEDS: ACETAMINOPHEN 325 MG TAB PO PRN (14:19)
--- NOTE | 2017-10-05 15:23 | Family Medicine Progress Note ---
Progress Note Date of Service Oct 05, 2017. Subjective Pt evaluation today including: conversation w/ patient, physical exam, chart review, lab review, review of inpatient medication list Pain: Right foot pain reported PO Intake: Tolerating PO intake Voiding: no voiding problems Mr. Juan reports he feels slightly better today than yesterday, but still feels unwell. He is unable to describe exactly what he means by that. He denies nausea, vomiting, abdominal pain, fever, or chills. He does report right foot pain when he tries to move his foot. He has also noted a decreased appetite and feeling weak. Constitutional: + weakness, + fatigue, No fever, No chills Respiratory: No shortness of breath Cardiovascular: No chest pain Abdomen: No pain, No nausea, No vomiting Musculoskeletal: + problem reported (right foot pain) Male : No dysuria, No incontinence All Other Systems: Reviewed and Negative Medications Current Inpatient Medications Medications (Trade) Dose Ordered Sig/Melvin Route Start Time Stop Time Status Last Admin Dose Admin Heparin Sodium (Porcine) (Heparin Sq 5000 Unit/0.5ml) 5,000 unit Q12 SQ 10/03/17 23:00 11/02/17 22:59 10/05/17 08:47 5,000 UNIT Sodium Chloride 1,000 ml @ 100 mls/hr Q10H IV 10/03/17 22:45 11/02/17 22:44 10/05/17 04:43 100 MLS/HR Acetaminophen (Tylenol Tab) 650 mg Q4H PRN PO 10/03/17 20:30 11/02/17 20:29 10/05/17 14:19 650 MG Al Hydrox/Mg Hydrox/Simethicone (Maalox Max Susp) 15 ml Q4H PRN PO 10/03/17 20:30 11/02/17 20:29 Magnesium Hydroxide (Milk Of Magnesia Susp) 30 ml Q12H PRN PO 10/03/17 20:30 11/02/17 20:29 10/04/17 15:59 30 ML Ondansetron HCl (Zofran Inj) 4 mg Q6H PRN IV 10/03/17 20:30 11/02/17 20:29 Polyethylene (Miralax Powder Packet) 17 gm DAILY PRN PO 10/03/17 20:30 11/02/17 20:29 Vancomycin HCl (Consult) 1 ea UD PRN N/A 10/03/17 20:30 11/02/17 20:29 Piperacillin Sod/ Tazobactam Sod 4.5 gm/Dextrose 120 ml @ 30 mls/hr Q12H IV 10/04/17 04:00 10/13/17 19:59 10/05/17 04:00 30 MLS/HR Miscellaneous Information (Consult) 1 ea UD PRN N/A 10/03/17 20:30 11/02/17 20:29 Acetaminophen (Tylenol Tab) 1,000 mg QAM PO 10/04/17 09:00 11/03/17 08:59 10/05/17 07:54 1,000 MG Aspirin (Ecotrin Tab) 81 mg DAILY PO 10/04/17 09:00 11/03/17 08:59 10/05/17 07:54 81 MG Ranitidine HCl (zANTac TAB) 150 mg BID PO 10/03/17 21:00 11/02/17 20:59 10/05/17 07:54 150 MG Simvastatin (Zocor Tab) 40 mg QPM PO 10/03/17 21:00 11/02/17 20:59 10/04/17 20:59 40 MG Morphine Sulfate (MoRPHine SULFATE INJ) 4 mg Q4H PRN IV 10/03/17 22:30 10/17/17 22:29 10/04/17 05:05 4 MG Insulin Aspart (novoLOG ASPART) SLIDING SCALE If C... ACHS SC 10/04/17 06:30 11/03/17 06:29 10/05/17 12:25 9 UNITS Glucose (Glucose 40% Gel) 15-30 GRAMS 15 GRAMS... UD PRN PO 10/04/17 00:00 11/03/17 00:00 Glucose (Glucose Chew Tab) 4-8 Tablets 4 Tabl... UD PRN PO 10/04/17 00:00 11/03/17 00:00 Dextrose (Dextrose 50% 50ML Syringe) 25-50ML 25ML FOR ... UD PRN IV 10/04/17 00:00 11/03/17 00:00 Glucagon (Glucagon Inj) 1 mg UD PRN SQ 10/04/17 00:00 11/03/17 00:00 Carbohydrates (Carbohydrates For Hypoglycemia) 15-30 GRAMS 15 grams if BSG 54-69... UD PRN PO 10/04/17 00:00 11/03/17 00:00 Senna (Senokot Tab) 8.6 mg QAM PO 10/05/17 09:00 11/04/17 08:59 10/05/17 07:54 8.6 MG Insulin Glargine (Lantus Solostar Pen) 10 units QPM SC 10/04/17 21:00 11/03/17 20:59 10/04/17 21:02 10 UNITS Objective Vital Signs Date Time Temp Pulse Resp B/P (MAP) Pulse Ox O2 Delivery O2 Flow Rate FiO2 10/05/17 12:30 Room Air 10/05/17 11:49 36.3 60 18 124/67 (86) 96 Room Air 10/05/17 08:00 97 Room Air 10/05/17 07:56 36.5 59 16 157/74 (101) 96 Room Air 10/05/17 04:35 36.8 60 20 145/75 (98) 96 Room Air 10/05/17 00:04 36.5 60 20 108/65 (79) 94 Room Air 10/04/17 23:59 97 Room Air 10/04/17 19:34 36.5 59 20 131/64 (86) 99 Room Air 10/04/17 16:00 36.7 61 19 117/61 (79) 96 Room Air 10/04/17 16:00 97 Room Air Physical Exam General Appearance: WD/WN, no apparent distress Respiratory/Chest: lungs clear, normal breath sounds Cardiovascular: regular rate, rhythm, no gallop, no murmur Abdomen: non tender, soft Extremities: + pertinent finding (right foot with 2+ edema, erythematous, warm and tender. Erythema beginning to fade below line drawn yesterday) Neurologic/Psychiatric: alert, oriented x 3 Laboratory Results Last 24 Hours Test 10/04/17 17:09 10/04/17 20:15 10/05/17 05:18 10/05/17 07:53 Bedside Glucose 222 mg/dl 173 mg/dl 162 mg/dl White Blood Count 11.81 K/uL Red Blood Count 4.20 M/uL Hemoglobin 12.0 g/dL Hematocrit 36.4 % Mean Corpuscular Volume 86.7 fL Mean Corpuscular Hemoglobin 28.6 pg Mean Corpuscular Hemoglobin Concent 33.0 g/dl Platelet Count 89 K/uL Mean Platelet Volume 10.3 fL Neutrophils (%) (Auto) 81.4 % Lymphocytes (%) (Auto) 6.0 % Monocytes (%) (Auto) 11.7 % Eosinophils (%) (Auto) 0.4 % Basophils (%) (Auto) 0.2 % Neutrophils # (Auto) 9.62 K/uL Lymphocytes # (Auto) 0.71 K/uL Monocytes # (Auto) 1.38 K/uL Eosinophils # (Auto) 0.05 K/uL Basophils # (Auto) 0.02 K/uL RDW Standard Deviation 48.3 fL RDW Coefficient of Variation 15.2 % Immature Granulocyte % (Auto) 0.3 % Immature Granulocyte # (Auto) 0.03 K/uL Sodium Level 134 mmol/L Potassium Level 4.5 mmol/L Chloride Level 102 mmol/L Carbon Dioxide Level 22 mmol/L Anion Gap 10.0 mmol/L Blood Urea Nitrogen 96 mg/dl Creatinine 3.71 mg/dl Est Creatinine Clear Calc Drug Dose 19.7 ml/min Estimated GFR () 16.8 Estimated GFR (Non- 14.5 BUN/Creatinine Ratio 25.9 Random Glucose 158 mg/dl Calcium Level 8.1 mg/dl Total Bilirubin 3.8 mg/dl Aspartate Amino Transf (AST/SGOT) 54 U/L Alanine Aminotransferase (ALT/SGPT) 39 U/L Alkaline Phosphatase 312 U/L Total Protein 7.1 gm/dl Albumin 2.5 gm/dl Globulin 4.6 gm/dl Albumin/Globulin Ratio 0.5 Random Vancomycin Level 30.0 mcg/ml Test 10/05/17 11:53 Bedside Glucose 199 mg/dl Assessment and Plan Mr. Juan is a 81 year old male with a past medical history of CHF, CKD stage III, DM II, HTN, HLD, A-fib, BPH, anemia and h/o left amputation who presented with RLE pain, swelling, and generalized weakness admitted for RLE cellulitis and sepsis Sepsis POA in setting of RLE Cellulitis, Leukocytosis, Elevated Lactate - XR Foot, Tib/FIB, negative - Given severe nature of cellulitis and degree of inflammation, will continue both zosyn and vancomycin (day 2) - preliminary blood cultures negative - WCC improved from 16 to 100.8 - Consented for PICC line - will hold on procedure pending clinical improvement. THOMAS - likely secondary to sepsis and dehydration/hypoperfusion - Downtrending - 3.7 today, improved from admission creatinine of 4.1 (baseline 1.5-2.4) - continue maintenance IVF w/NS @ 100 ml/hr - Hold Lasix Thrombocytopenia - platelets stable at 89, no evidence of bleeding - seems to be around baseline, however no mention of thrombocytopenia in prior hospital notes - outpatient f/u Venous stasis ulcer - likely entry point leading to cellulitis - wound care consult Chronic Diastolic CHF, Afib s/p pacemaker, HTN - last echo Apr 2016 showed normal EF - Held spironolactone given THOMAS & infection - not on anticoagulation given hx of GI hemorrhage - continue home dose of metoprolol tartrate 25mg BID - Monitor volume status, i/o, daily weight T2DM - ISS - increase Lantus to 15 units sq qpm - may benefit from switch to Lantus as opposed to NPH on d/c - HbA1c 6.6% HLD - Continue Statin GERD - Continue home Zantac Code: Full DVT Prophylaxis: Heparin 5000 q12h Disposition: Admit to Telemetry Resident Physician Supervision Note: I interviewed and examined the patient. Discussed with Dr. Pope and agree with findings and plan as documented in the note. Any exceptions or clarifications are listed here: None Documented By: James Oropeza leg slowly improving fatigued still no appetite vitals noted fatigued but nad breathing unlabored no pallor or icterus RLE diffuse erythema no areas of fluctuance or open sores or exudate, roughly same distribution but less densely red than yesterday cellulitis, THOMAS, possible sepsis POA (leukocytosis, lactate elevation) -vanco, zosyn, fluids, pain control, supportive care - seems to be improving poor appetite -encouraged PO intake fatigue/weakness -PT/OT otherwise as above Resident Tracking Resident Involvement: Resident Care Provided Care Provided: Adult Hospital Medicine
[2017-10-05] MEDS: SIMVASTATIN 40 MG TAB PO SCH (20:45)
[2017-10-05] MEDS: METOPROLOL TARTRATE 25 MG TAB PO SCH (20:45)
[2017-10-05] MEDS: INSULIN GLARGINE SOLOSTAR 100 UNITS/ML 3 ML PEN SC SCH (20:51)
[2017-10-06] MEDS: MoRPHine SULFATE 4 MG/ML 1 ML CARP\\VIAL IV PRN (02:14)
[2017-10-06] MEDS: PIPERACILL/TAZOBAC IV 4.5 GM in DEXTROSE 5% 100ML 100 ML IV SCH (03:30)
[2017-10-06 04:37] VITALS: BP 146/79; PULSE 59; TEMP 36.5; O2SAT 97
[2017-10-06] MEDS: SODIUM CHLORIDE 0.9% 1000ML 1,000 ML IV SCH ×2 (05:59→18:31)
[2017-10-06 07:10] VITALS: BP 138/71; PULSE 57; TEMP 36.7; O2SAT 97
[2017-10-06 07:21] LABS: HEMATOCRIT 39.6 % (42-52); HEMOGLOBIN 12.9 g/dL (14.0-18.0); MEAN CORPUSCULAR HEMOGLOBIN 28.4 pg (25-34); MEAN CORPUSCULAR HGB CONC 32.6 g/dl (32-36); RED CELL DISTRIBUTION WIDTH CV 15.4 % (11.5-14.5); RED CELL DISTRIBUTION WIDTH SD 48.8 fL (36.4-46.3); WHITE BLOOD COUNT 8.99 K/uL (4.8-10.8)
[2017-10-06 07:26] LABS: MEAN PLATELET VOLUME 11.1 fL (7.4-10.4); PLATELET COUNT 98 K/uL (130-400)
--- NOTE | 2017-10-06 07:27 | Family Medicine Progress Note ---
Progress Note Date of Service Oct 06, 2017. Subjective Pt evaluation today including: conversation w/ patient, physical exam, chart review, lab review, review of inpatient medication list Pain: Minimal right foot pain reported PO Intake: Tolerating PO intake Voiding: no voiding problems Mr. Juan reports he feels better today. He states his right foot pain is improving, and feels as though he has some more energy. He denies any chest pain , SOB, or abdominal pain. He has no new complaints. Constitutional: No fever, No chills Respiratory: No cough, No shortness of breath Cardiovascular: No chest pain Abdomen: No pain, No nausea, No vomiting All Other Systems: Reviewed and Negative Medications Current Inpatient Medications Medications (Trade) Dose Ordered Sig/Melvin Route Start Time Stop Time Status Last Admin Dose Admin Heparin Sodium (Porcine) (Heparin Sq 5000 Unit/0.5ml) 5,000 unit Q12 SQ 10/03/17 23:00 11/02/17 22:59 10/06/17 09:04 5,000 UNIT Sodium Chloride 1,000 ml @ 75 mls/hr [id number] IV 10/03/17 22:45 11/02/17 22:44 10/06/17 05:59 100 MLS/HR Acetaminophen (Tylenol Tab) 650 mg Q4H PRN PO 10/03/17 20:30 11/02/17 20:29 10/05/17 14:19 650 MG Al Hydrox/Mg Hydrox/Simethicone (Maalox Max Susp) 15 ml Q4H PRN PO 10/03/17 20:30 11/02/17 20:29 Magnesium Hydroxide (Milk Of Magnesia Susp) 30 ml Q12H PRN PO 10/03/17 20:30 11/02/17 20:29 10/04/17 15:59 30 ML Ondansetron HCl (Zofran Inj) 4 mg Q6H PRN IV 10/03/17 20:30 11/02/17 20:29 Polyethylene (Miralax Powder Packet) 17 gm DAILY PRN PO 10/03/17 20:30 11/02/17 20:29 Vancomycin HCl (Consult) 1 ea UD PRN N/A 10/03/17 20:30 11/02/17 20:29 Miscellaneous Information (Consult) 1 ea UD PRN N/A 10/03/17 20:30 11/02/17 20:29 Acetaminophen (Tylenol Tab) 1,000 mg QAM PO 10/04/17 09:00 11/03/17 08:59 10/06/17 09:01 1,000 MG Aspirin (Ecotrin Tab) 81 mg DAILY PO 10/04/17 09:00 11/03/17 08:59 10/06/17 09:01 81 MG Ranitidine HCl (zANTac TAB) 150 mg BID PO 10/03/17 21:00 11/02/17 20:59 10/06/17 09:01 150 MG Simvastatin (Zocor Tab) 40 mg QPM PO 10/03/17 21:00 11/02/17 20:59 10/05/17 20:45 40 MG Morphine Sulfate (MoRPHine SULFATE INJ) 4 mg Q4H PRN IV 10/03/17 22:30 10/17/17 22:29 10/06/17 02:14 4 MG Insulin Aspart (novoLOG ASPART) SLIDING SCALE If C... ACHS SC 10/04/17 06:30 11/03/17 06:29 10/06/17 12:18 12 UNITS Glucose (Glucose 40% Gel) 15-30 GRAMS 15 GRAMS... UD PRN PO 10/04/17 00:00 11/03/17 00:00 Glucose (Glucose Chew Tab) 4-8 Tablets 4 Tabl... UD PRN PO 10/04/17 00:00 11/03/17 00:00 Dextrose (Dextrose 50% 50ML Syringe) 25-50ML 25ML FOR ... UD PRN IV 10/04/17 00:00 11/03/17 00:00 Glucagon (Glucagon Inj) 1 mg UD PRN SQ 10/04/17 00:00 11/03/17 00:00 Carbohydrates (Carbohydrates For Hypoglycemia) 15-30 GRAMS 15 grams if BSG 54-69... UD PRN PO 10/04/17 00:00 11/03/17 00:00 Senna (Senokot Tab) 8.6 mg QAM PO 10/05/17 09:00 11/04/17 08:59 10/06/17 09:01 8.6 MG Metoprolol Tartrate (Lopressor Tab) 25 mg BID PO 10/05/17 21:00 11/04/17 20:59 10/05/17 20:45 25 MG Insulin Glargine (Lantus Solostar Pen) 15 units QPM SC 10/05/17 21:00 11/03/17 20:59 10/05/17 20:51 15 UNITS Piperacillin Sod/ Tazobactam Sod 4.5 gm/Dextrose 120 ml @ 30 mls/hr Q8H IV 10/06/17 12:00 10/16/17 11:59 10/06/17 12:12 30 MLS/HR Objective Vital Signs Date Time Temp Pulse Resp B/P (MAP) Pulse Ox O2 Delivery O2 Flow Rate FiO2 10/06/17 12:06 36.5 60 16 137/62 (87) 97 Room Air 10/06/17 08:18 Room Air 10/06/17 07:10 36.7 57 16 138/71 (93) 97 Room Air 10/06/17 04:37 36.5 59 20 146/79 (101) 97 Room Air 10/05/17 23:05 35.9 61 18 123/70 (87) 97 Room Air 10/05/17 20:42 Room Air 10/05/17 19:07 36.5 94 18 135/73 (93) 98 Room Air 10/05/17 15:57 36.4 59 18 133/64 (87) 94 Room Air Physical Exam General Appearance: WD/WN, no apparent distress Respiratory/Chest: lungs clear, normal breath sounds, no respiratory distress, no accessory muscle use Cardiovascular: regular rate, rhythm, no murmur Abdomen: non tender, soft Extremities: + pertinent finding (Right foot warm to touch and swollen. Erythema fading below drawn line. Not as tender to palpation as yesterday) Laboratory Results Last 24 Hours Test 10/05/17 15:58 10/05/17 16:39 10/05/17 20:23 10/06/17 07:02 Random Vancomycin Level 24.3 mcg/ml 21.2 mcg/ml Bedside Glucose 206 mg/dl 208 mg/dl White Blood Count 8.99 K/uL Red Blood Count 4.55 M/uL Hemoglobin 12.9 g/dL Hematocrit 39.6 % Mean Corpuscular Volume 87.0 fL Mean Corpuscular Hemoglobin 28.4 pg Mean Corpuscular Hemoglobin Concent 32.6 g/dl Platelet Count 98 K/uL Mean Platelet Volume 11.1 fL Neutrophils (%) (Auto) 74.7 % Lymphocytes (%) (Auto) 7.0 % Monocytes (%) (Auto) 16.8 % Eosinophils (%) (Auto) 1.3 % Basophils (%) (Auto) 0.1 % Neutrophils # (Auto) 6.71 K/uL Lymphocytes # (Auto) 0.63 K/uL Monocytes # (Auto) 1.51 K/uL Eosinophils # (Auto) 0.12 K/uL Basophils # (Auto) 0.01 K/uL RDW Standard Deviation 48.8 fL RDW Coefficient of Variation 15.4 % Immature Granulocyte % (Auto) 0.1 % Immature Granulocyte # (Auto) 0.01 K/uL Sodium Level 135 mmol/L Potassium Level 4.1 mmol/L Chloride Level 101 mmol/L Carbon Dioxide Level 22 mmol/L Anion Gap 12.0 mmol/L Blood Urea Nitrogen 87 mg/dl Creatinine 3.29 mg/dl Est Creatinine Clear Calc Drug Dose 22.5 ml/min Estimated GFR () 19.4 Estimated GFR (Non- 16.8 BUN/Creatinine Ratio 26.4 Random Glucose 159 mg/dl Calcium Level 8.3 mg/dl Total Bilirubin 4.7 mg/dl Aspartate Amino Transf (AST/SGOT) 68 U/L Alanine Aminotransferase (ALT/SGPT) 42 U/L Alkaline Phosphatase 422 U/L Total Protein 7.4 gm/dl Albumin 2.4 gm/dl Globulin 5.0 gm/dl Albumin/Globulin Ratio 0.5 Test 10/06/17 07:35 10/06/17 11:55 Bedside Glucose 155 mg/dl 177 mg/dl Assessment and Plan Mr. Juan is a 81 year old male with a past medical history of CHF, CKD stage III, DM II, HTN, HLD, A-fib, BPH, anemia and h/o left amputation who presented with RLE pain, swelling, and generalized weakness admitted for RLE cellulitis and sepsis Sepsis POA in setting of RLE Cellulitis, Leukocytosis, Elevated Lactate - XR Foot, Tib/FIB, negative - clinically improving -> less tenderness to palpation - day 3 of abx -> transition to Rocephin from zosyn and vancomycin - preliminary blood cultures negative - WCC improved from 16 to 8.99 - Consented for PICC line - will hold on procedure pending clinical improvement. - PT/OT eval given he will likely require rehab on d/c THOMAS - likely secondary to sepsis and dehydration/hypoperfusion - Downtrending - 3.29 today, improved from admission creatinine of 4.1 ( baseline 1.5-2.4) - continue gentle maintenance IVF w/NS @ 75 ml/hr - Hold Lasix Elevated LFTs - Elevated bilirubin and alk phos present on admission & trending upwards - no signs/symptoms of liver disease - biliary US WNL - may be partly due to treatment w/zosyn - d/c zosyn - trend LFTs -> will likely require further eval in outpatient setting if they don't return back to normal Thrombocytopenia - platelets stable at 98, no evidence of bleeding - seems to be around baseline, however no mention of thrombocytopenia in prior hospital notes - outpatient f/u Venous stasis ulcer - likely entry point leading to cellulitis - wound care consult Chronic Diastolic CHF, Afib s/p pacemaker, HTN - last echo Apr 2016 showed normal EF - Held spironolactone given THOMAS & infection - not on anticoagulation given hx of GI hemorrhage - continue home dose of metoprolol tartrate 25mg BID - Monitor volume status, i/o, daily weight - decrease fluids to 75 mls/hr from maintenance given he is 2.8L positive, but does still have an element of THOMAS T2DM - ISS - continue Lantus 15 units sq qpm - may benefit from switch to Lantus as opposed to NPH on d/c - HbA1c 6.6% HLD - Continue Statin GERD - Continue home Zantac Code: Full DVT Prophylaxis: Heparin 5000 q12h Disposition: Remains on med/surg Resident Physician Supervision Note: I interviewed and examined the patient. Discussed with Dr. Pope and agree with findings and plan as documented in the note. Any exceptions or clarifications are listed here: None Documented By: James Oropeza leg still improving fatigued still no appetite vitals noted fatigued but nad breathing unlabored no pallor or icterus RLE diffuse erythema no areas of fluctuance or open sores or exudate, clearly improving cellulitis, THOMAS, possible sepsis POA (leukocytosis, lactate elevation) -can change abx to rocephin elevated LFTs -seems c/w cholestasis from zosyn (can happen, usually worsens for a day or two after cessation then starts to trend down); however, a lesser degree of cholestasis was present on admission --> RUQ US done and normal - trend LFTs. may need to consider MRCP and/or GI eval. -follow CMP for now poor appetite -encouraged PO intake fatigue/weakness -PT/OT otherwise as above Resident Tracking Resident Involvement: Resident Care Provided Care Provided: Adult [facility]
[2017-10-06 07:56] LABS: ALBUMIN 2.4 gm/dl (3.4-5.0); CALCIUM 8.3 mg/dl (8.5-10.1); CREATININE 3.29 mg/dl (0.60-1.40); POTASSIUM 4.1 mmol/L (3.5-5.1); TOTAL PROTEIN 7.4 gm/dl (6.4-8.2)
[2017-10-06 08:15] LABS: BASO % 0.1 %; BASO ABS # 0.01 K/uL (0-0.2); EOS % 1.3 %; EOS ABS # 0.12 K/uL (0-0.5); IG# 0.01 K/uL (0.00-0.02); LYMPH ABS # 0.63 K/uL (1.2-3.4); MONO % 16.8 %; MONO ABS # 1.51 K/uL (0.11-0.59); NEUT % 74.7 %; NEUT ABS # 6.71 K/uL (1.4-6.5)
[2017-10-06] MEDS: METOPROLOL TARTRATE 25 MG TAB PO SCH ×2 (09:00→20:56)
[2017-10-06] MEDS: RANITIDINE HCL 150 MG TAB PO SCH ×2 (09:01→20:55)
[2017-10-06] MEDS: SENNA 8.6 MG TAB PO SCH (09:01)
[2017-10-06] MEDS: ACETAMINOPHEN 500 MG TAB PO SCH (09:01)
[2017-10-06] MEDS: ASPIRIN 81 MG ECTAB PO SCH (09:01)
[2017-10-06] MEDS: INSULIN ASPART 100 UNITS/ML 3 ML PEN SC SCH ×4 (09:03→21:01)
[2017-10-06] MEDS: HEPARIN SOD 5000 UNIT/0.5 ML CARP SQ SCH ×2 (09:04→21:02)
--- NOTE | 2017-10-06 10:22 | DIAGNOSTIC IMAGING REPORT ---
BILIARY ABDOMEN LIMITED CLINICAL HISTORY: rising alk phos and bili, r/o obstruction abnormal liver function studies TECHNIQUE: Ultrasound COMPARISON STUDY: 04/28/2016 Findings: Prior cholecystectomy. Common bile duct 4 mm. Liver is uniform. Pancreas is suboptimally seen due to overlying bowel content. Right kidney is negative for hydronephrosis. IMPRESSION: Negative study post cholecystectomy. No change from the prior exam. The above report was generated using voice recognition software. It may contain grammatical, syntax or spelling errors. Electronically signed by: Mario Felming M.D. 10/06/2017 10:20 AM Dictated Date/Time: 10/06/2017 10:19 AM
[2017-10-06] MEDS ORDERED: PIPERACILL/TAZOBAC IV 4.5 GM in DEXTROSE 5% 100ML 100 ML IV SCH (12:00)
[2017-10-06 12:06] VITALS: BP 137/62; PULSE 60; TEMP 36.5; O2SAT 97
[2017-10-06] MEDS: CEFTRIAXONE SOD INJ 2,000 MG in DEXTROSE 5% 50ML 50 ML IV SCH (14:04)
[2017-10-06 15:20] VITALS: BP 123/57; PULSE 60; TEMP 36.3; O2SAT 97
[2017-10-06 19:00] VITALS: BP 148/69; PULSE 60; TEMP 36.4; O2SAT 98
[2017-10-06] MEDS: SIMVASTATIN 40 MG TAB PO SCH (20:55)
[2017-10-06] MEDS: INSULIN GLARGINE SOLOSTAR 100 UNITS/ML 3 ML PEN SC SCH (21:02)
[2017-10-06 22:22] VITALS: BP 117/74; PULSE 55; TEMP 36.6; O2SAT 98
[2017-10-07] VITALS (8 sets, daily range): BP systolic 118–150; BP diastolic 63–89; PULSE 58–63; TEMP 36.5–36.9; O2SAT 92–98
[2017-10-07] MEDS: SODIUM CHLORIDE 0.9% 1000ML 1,000 ML IV SCH (00:09)
[2017-10-07 05:37] LABS: HEMATOCRIT 38.3 % (42-52); HEMOGLOBIN 12.8 g/dL (14.0-18.0); MEAN CELL VOLUME 85.9 fL (80-100); MEAN CORPUSCULAR HEMOGLOBIN 28.7 pg (25-34); MEAN CORPUSCULAR HGB CONC 33.4 g/dl (32-36); NUCLEATED RED BLOOD CELL ABS 0.04 K/uL (0-0); RED CELL DISTRIBUTION WIDTH CV 15.5 % (11.5-14.5); RED CELL DISTRIBUTION WIDTH SD 48.1 fL (36.4-46.3); WHITE BLOOD COUNT 8.61 K/uL (4.8-10.8)
[2017-10-07 05:39] LABS: PLATELET COUNT 98 K/uL (130-400)
[2017-10-07 06:12] LABS: ALBUMIN 2.2 gm/dl (3.4-5.0); CALCIUM 8.5 mg/dl (8.5-10.1); CREATININE 2.9 mg/dl (0.60-1.40)
[2017-10-07 06:15] LABS: TOTAL PROTEIN 7.4 gm/dl (6.4-8.2)
[2017-10-07 06:40] LABS: BASO % 0.2 %; BASO ABS # 0.02 K/uL (0-0.2); EOS % 1.7 %; EOS ABS # 0.15 K/uL (0-0.5); IG# 0.04 K/uL (0.00-0.02); LYMPH % 7.7 %; LYMPH ABS # 0.66 K/uL (1.2-3.4); MONO % 20.9 %; NEUT ABS # 5.94 K/uL (1.4-6.5)
--- NOTE | 2017-10-07 07:58 | Family Medicine Progress Note ---
Progress Note Date of Service Oct 07, 2017. Subjective Pt evaluation today including: conversation w/ patient, physical exam, chart review, lab review, review of inpatient medication list Pain: Moderate amount of pain, had recently been given morphine prior to visit PO Intake: Tolerating well Voiding: no voiding problems Patient c/o moderate pain this morning from his toes up to his knee and nowhere else. He states "I'm so tired of being in pain." He reports he cannot even concentrate on his TV shows due to the pain. Constitutional: No fever, No chills ENT: No hearing loss Respiratory: No cough, No shortness of breath Cardiovascular: + edema, No chest pain Abdomen: No pain, No diarrhea, No constipation Musculoskeletal: + swelling, No joint pain Psychiatric: + anhedonism All Other Systems: Reviewed and Negative Medications Current Inpatient Medications Medications (Trade) Dose Ordered Sig/Melvin Route Start Time Stop Time Status Last Admin Dose Admin Heparin Sodium (Porcine) (Heparin Sq 5000 Unit/0.5ml) 5,000 unit Q12 SQ 10/03/17 23:00 11/02/17 22:59 10/07/17 08:31 5,000 UNIT Acetaminophen (Tylenol Tab) 650 mg Q4H PRN PO 10/03/17 20:30 11/02/17 20:29 10/05/17 14:19 650 MG Al Hydrox/Mg Hydrox/Simethicone (Maalox Max Susp) 15 ml Q4H PRN PO 10/03/17 20:30 11/02/17 20:29 Magnesium Hydroxide (Milk Of Magnesia Susp) 30 ml Q12H PRN PO 10/03/17 20:30 11/02/17 20:29 10/04/17 15:59 30 ML Ondansetron HCl (Zofran Inj) 4 mg Q6H PRN IV 10/03/17 20:30 11/02/17 20:29 Polyethylene (Miralax Powder Packet) 17 gm DAILY PRN PO 10/03/17 20:30 11/02/17 20:29 Acetaminophen (Tylenol Tab) 1,000 mg QAM PO 10/04/17 09:00 11/03/17 08:59 10/07/17 08:26 1,000 MG Aspirin (Ecotrin Tab) 81 mg DAILY PO 10/04/17 09:00 11/03/17 08:59 10/07/17 08:27 81 MG Ranitidine HCl (zANTac TAB) 150 mg BID PO 10/03/17 21:00 11/02/17 20:59 10/07/17 08:46 150 MG Simvastatin (Zocor Tab) 40 mg QPM PO 10/03/17 21:00 11/02/17 20:59 10/06/17 20:55 40 MG Morphine Sulfate (MoRPHine SULFATE INJ) 4 mg Q4H PRN IV 10/03/17 22:30 10/17/17 22:29 10/07/17 08:47 4 MG Insulin Aspart (novoLOG ASPART) SLIDING SCALE If C... ACHS SC 10/04/17 06:30 11/03/17 06:29 10/07/17 12:08 4 UNITS Glucose (Glucose 40% Gel) 15-30 GRAMS 15 GRAMS... UD PRN PO 10/04/17 00:00 11/03/17 00:00 Glucose (Glucose Chew Tab) 4-8 Tablets 4 Tabl... UD PRN PO 10/04/17 00:00 11/03/17 00:00 Dextrose (Dextrose 50% 50ML Syringe) 25-50ML 25ML FOR ... UD PRN IV 10/04/17 00:00 11/03/17 00:00 Glucagon (Glucagon Inj) 1 mg UD PRN SQ 10/04/17 00:00 11/03/17 00:00 Carbohydrates (Carbohydrates For Hypoglycemia) 15-30 GRAMS 15 grams if BSG 54-69... UD PRN PO 10/04/17 00:00 11/03/17 00:00 Senna (Senokot Tab) 8.6 mg QAM PO 10/05/17 09:00 11/04/17 08:59 10/07/17 08:27 8.6 MG Metoprolol Tartrate (Lopressor Tab) 25 mg BID PO 10/05/17 21:00 11/04/17 20:59 10/07/17 08:27 25 MG Insulin Glargine (Lantus Solostar Pen) 15 units QPM SC 10/05/17 21:00 11/03/17 20:59 10/06/17 21:02 15 UNITS Ceftriaxone Sodium 2000 mg/ Dextrose 70 ml @ 100 mls/hr Q24H IV 10/06/17 14:00 10/16/17 13:59 10/07/17 14:10 100 MLS/HR Furosemide (Lasix Tab) 40 mg QAM PO 10/08/17 09:00 11/07/17 08:59 Objective Vital Signs Date Time Temp Pulse Resp B/P (MAP) Pulse Ox O2 Delivery O2 Flow Rate FiO2 10/07/17 07:36 36.9 59 18 146/75 (98) 96 Room Air 10/07/17 04:47 36.7 59 18 133/70 (91) 98 Room Air 10/06/17 22:22 36.6 55 18 117/74 (88) 98 Room Air 10/06/17 21:47 Room Air 10/06/17 19:00 36.4 60 18 148/69 (95) 98 Room Air 10/06/17 15:20 36.3 60 16 123/57 (79) 97 Room Air 10/06/17 12:06 36.5 60 16 137/62 (87) 97 Room Air 10/06/17 08:18 Room Air Physical Exam General Appearance: WD/WN, no apparent distress Eyes: PERRL, EOMI ENT: hearing grossly normal, pharynx normal Neck: supple, no adenopathy Respiratory/Chest: chest non-tender, lungs clear, normal breath sounds Cardiovascular: regular rate, rhythm, + normal peripheral pulses Abdomen: non tender, soft Extremities: + pedal edema (R-sided 2+ from toes to knee. Pain with movement of RLE) Neurologic/Psychiatric: no motor/sensory deficits, normal mood/affect, oriented x 3 Skin: + pertinent finding (R-sided vascular insufficiency, rubor, improving from discharge) Laboratory Results Last Resulted 10/07/17 05:15 Red Blood Count 4.46, Mean Corpuscular Volume 85.9, Mean Corpuscular Hemoglobin 28.7, Mean Corpuscular Hemoglobin Concent 33.4, Mean Platelet Volume 10.0, Neutrophils (%) (Auto) 69.0, Lymphocytes (%) (Auto) 7.7, Monocytes (%) (Auto) 20.9, Eosinophils (%) (Auto) 1.7, Basophils (%) (Auto) 0.2, Neutrophils # (Auto ) 5.94, Lymphocytes # (Auto) 0.66, Monocytes # (Auto) 1.80, Eosinophils # (Auto ) 0.15, Basophils # (Auto) 0.02 Last Resulted 10/07/17 05:15 Assessment and Plan Mr. Juan is a 81 yo M with PMH of chronic diastolic CHF, CKD III, T2DM, HTN, HLD, A-fib, BPH, anemia and left [place] amputation who presented with RLE pain, swelling, and generalized weakness admitted for RLE cellulitis and sepsis Sepsis POA in setting of RLE Cellulitis, Leukocytosis, Elevated Lactate - XR Foot, Tib/FIB, negative - day 4 of abx -> transitioned to Rocephin from zosyn and vancomycin - blood cultures negative - WCC improved from 16 to 8.6 - Does not appear he will need PICC at this time - Elevate leg, wrap in ZULY bandage to help relieve edema. Right leg edema (left leg BKA) - Significant venous stasis with ? fluid overload - elevate leg, ZULY wrap - c/o pain in leg likely from leg edema. THOMAS - likely secondary to sepsis and dehydration/hypoperfusion - Downtrending - 2.9 today, improved from admission creatinine of 4.1 (baseline 1.5-2.4) - Discontinue maintenance IVF in setting of RLE edema - Resume lasix at 40 mg daily Elevated LFTs - Elevated bilirubin and alk phos present on admission & continue to trend upwards - no signs/symptoms of liver disease - biliary US WNL - may be ? partly due to treatment w/zosyn - switched to rocephin - trend LFTs -> will likely require further eval in outpatient setting if numbers don't return back to normal Thrombocytopenia - platelets stable at 98, no evidence of bleeding - seems to be around baseline, however no mention of thrombocytopenia in prior hospital notes - outpatient f/u Venous stasis ulcer - likely entry point leading to cellulitis - wound care consulted Chronic Diastolic CHF, Afib s/p pacemaker, HTN - last echo Apr 2016 showed normal EF - Held spironolactone given THOMAS & infection. Resuming lasix at 40mgs. Will titrate upto the home dose depending on the fluid volume status. - not on anticoagulation given h/o GI hemorrhage - continue home dose of metoprolol tartrate 25mg BID - Monitor volume status, i/o, daily weight T2DM - ISS - continue Lantus 15 units sq qpm - may benefit from switch to Lantus as opposed to NPH on d/c - HbA1c 6.6% HLD - Continue Statin GERD - Continue home Zantac Code: Full DVT Prophylaxis: Heparin 5000 q12h FEN: no IVF, heart healthy Diabetic diet Disposition: Remains on med/surg. - PT/OT eval given he will likely require rehab (?[facility]) on d/c Resident Tracking Resident Involvement: Resident Care Provided Care Provided: Adult Hospital Medicine Reviewed: Pt Seen/Exam by Me History c/o not doing good due to right leg pain. Constitutional: denies: fever Respiratory: negative: short of breath Cardiovascular: denies chest pain General Appearance: other (in distress when right leg touched or moved) Respiratory: lungs clear, no respiratory distress Cardiovascular: regular rate, rhythm Extremities: other (Left BKA. right leg - edema +++, venous stasis changes) Neurologic/Psychiatric: alert, oriented x 3 Assessment/Plan Resident Physician Supervision Note: I independently interviewed and examined the patient and verified the guallpa history and physical, reviewed labs and image studies, discussed the case with the resident Dr. Reno and agree with the findings and care plan.
[2017-10-07] MEDS: ACETAMINOPHEN 500 MG TAB PO SCH (08:26)
[2017-10-07] MEDS: SENNA 8.6 MG TAB PO SCH (08:27)
[2017-10-07] MEDS: ASPIRIN 81 MG ECTAB PO SCH (08:27)
[2017-10-07] MEDS: METOPROLOL TARTRATE 25 MG TAB PO SCH ×2 (08:27→20:34)
[2017-10-07] MEDS: INSULIN ASPART 100 UNITS/ML 3 ML PEN SC SCH ×4 (08:30→20:48)
[2017-10-07] MEDS: HEPARIN SOD 5000 UNIT/0.5 ML CARP SQ SCH ×2 (08:31→20:51)
[2017-10-07] MEDS: RANITIDINE HCL 150 MG TAB PO SCH ×2 (08:46→20:34)
[2017-10-07] MEDS: MoRPHine SULFATE 4 MG/ML 1 ML CARP\\VIAL IV PRN ×3 (08:47→23:29)
[2017-10-07] MEDS ORDERED: FUROSEMIDE 40 MG TAB PO ONE (11:15)
[2017-10-07] MEDS: CEFTRIAXONE SOD INJ 2,000 MG in DEXTROSE 5% 50ML 50 ML IV SCH (14:10)
[2017-10-07] MEDS: SIMVASTATIN 40 MG TAB PO SCH (20:34)
[2017-10-07] MEDS: INSULIN GLARGINE SOLOSTAR 100 UNITS/ML 3 ML PEN SC SCH (20:51)
[2017-10-08] VITALS (8 sets, daily range): BP systolic 117–148; BP diastolic 65–77; PULSE 57–62; TEMP 36.5–37.2; O2SAT 93–97
[2017-10-08] MEDS ORDERED: LORAZEPAM INJ 0.5 MG in SYRINGE 0.25 ML IV ONE (05:00)
[2017-10-08 05:49] LABS: HEMATOCRIT 38.1 % (42-52); HEMOGLOBIN 12.4 g/dL (14.0-18.0); MEAN CELL VOLUME 86.2 fL (80-100); MEAN CORPUSCULAR HEMOGLOBIN 28.1 pg (25-34); MEAN CORPUSCULAR HGB CONC 32.5 g/dl (32-36); MEAN PLATELET VOLUME 10.7 fL (7.4-10.4); NUCLEATED RED BLOOD CELL ABS 0.03 K/uL (0-0); PLATELET COUNT 119 K/uL (130-400); RED CELL DISTRIBUTION WIDTH CV 15.6 % (11.5-14.5); RED CELL DISTRIBUTION WIDTH SD 49.3 fL (36.4-46.3); WHITE BLOOD COUNT 7.88 K/uL (4.8-10.8)
[2017-10-08 06:27] LABS: ALBUMIN 2.3 gm/dl (3.4-5.0); CALCIUM 8.6 mg/dl (8.5-10.1); CREATININE 2.96 mg/dl (0.60-1.40); POTASSIUM 4.1 mmol/L (3.5-5.1)
[2017-10-08 06:30] LABS: TOTAL PROTEIN 7.5 gm/dl (6.4-8.2)
[2017-10-08] MEDS: MoRPHine SULFATE 4 MG/ML 1 ML CARP\\VIAL IV PRN (07:51)
[2017-10-08] MEDS: RANITIDINE HCL 150 MG TAB PO SCH ×2 (08:06→21:01)
[2017-10-08] MEDS: SENNA 8.6 MG TAB PO SCH (08:06)
[2017-10-08] MEDS: FUROSEMIDE 40 MG TAB PO SCH (08:07)
[2017-10-08] MEDS: METOPROLOL TARTRATE 25 MG TAB PO SCH ×3 (08:07→21:01)
[2017-10-08] MEDS: ASPIRIN 81 MG ECTAB PO SCH (08:08)
[2017-10-08] MEDS: ACETAMINOPHEN 500 MG TAB PO SCH (08:08)
[2017-10-08] MEDS: INSULIN ASPART 100 UNITS/ML 3 ML PEN SC SCH ×4 (08:10→21:03)
[2017-10-08] MEDS: HEPARIN SOD 5000 UNIT/0.5 ML CARP SQ SCH ×2 (08:12→21:04)
--- NOTE | 2017-10-08 10:21 | Gastrointestinal Consultation ---
Gastrointestinal Consultation Date of Consultation: Oct 08, 2017 Attending Physician: Dr. Reno Consulting Physician: Dr. Campo/BELINDA Davis Reason for Consultation: Elevated lfts History of Present Illness Patient is a 81 year old male with a past medical history significant for atrial fibrillation, DM II, CKD stage III, CHF and left amputation with pain and edema at the stump as well as RLE pain and swelling presenting to the hospital for pain and weakness. He is known to our service for prior history of rectal bleeding in the setting of anticoagulant use and personal history of diverticulosis and hemorrhoids. Last GI consultation was in February of 2016. During this admission, he was noted to have a leukocytosis of 16.90 but negative blood cultures x 2. He was started on IV Zosyn for cellulitis. Liver panel at that time was as follows: AST 59, ALT 56, ALP 185, and TB 2.9. Over the course of the hospitalization (over the past 5 days), he has been noted to have progressively worsening bilirubin and alkaline phosphatase levels. Today, the liver panel was as follows: TB 6.8, AST 67, ALT 39, and ALP 615. Ultrasound was ordered and negative status post cholecystectomy. Prior non-enhanced CT a/p demonstrated an unremarkable liver. IV Zosyn has been discontinued and he has been started on IV Rocephin. Currently, the patient is unable to provide much history as he is rather lethargic. Per nursing, he has received both IV Ativan last evening and Morphine this morning and he is "a little out of it". Patient does report limb pain but otherwise offers no history. 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 Atrial fibrillation 2. Abdominal distention 3. Abdominal pain 4. THOMAS 5. Acute pyelonephritis 6. Anemia 7. Arthritis 8. Cellulitis 9. CHF 10. Current use of long-term anticoagulation 11. Diabetes 12. Dyspnea 13. GIB 14. Heart disease 15. Hyperkalemia 16. Hypertension 17. Hypoglycemia 18. Hyponatremia 19. Seizure 20. Sepsis 21. UTI Past Surgical History: 1. EGD 2. Colonoscopy 3. Pacemaker Family History Coronary artery disease Myocardial infarction Negative for GI malignancy or IBD Social History Smoking Status: Former Smoker Drug Use: none Marital Status: Housing Status: assisted living Occupation Status: retired Allergies Coded Allergies: Sulfa Antibiotics (Verified Allergy, Unknown, HAS TOLERATED BUMEX, 10/03/17 ) Current Medications Home Meds and Scripts Medications Dose Route/Sig Max Daily Dose Days Date Category Dose Instructions Aspirin Ec (Aspirin) 81 Mg Tab 81 Mg PO DAILY 10/03/17 Reported Lasix (Furosemide) 80 Mg Tab 2 Tabs PO AMPM 10/03/17 Reported Artificial Tears (Artificial Tear Solution) 1 Alisha Alisha 1 Drops OP QID 10/02/17 Reported Acetaminophen Extra Stren (Acetaminophen) 500 Mg Tab 1,000 Mg PO QAM 10/02/17 Reported 8 Hour Pain Reliever (Acetaminophen) 650 Mg Tab 1,300 Mg PO QPM 10/02/17 Reported Spironolactone 25 Mg Tab 25 Mg PO QAM 04/29/16 Rx for congestive heart failure and to prevent fluid retention Multivitamin (Multiple Vitamins W/ Minerals) 1 Liq Liq 04/22/16 Reported Zocor (Simvastatin) 40 Mg Tab 40 Mg PO QPM 01/24/16 Reported Novolin N (Insulin Human NPH) 100 Units/Ml Susp 40 Units SC BID 01/24/16 Reported Milk Of Magnesia (Magnesium Hydroxide) 30 Ml Susp 30 Ml PO DAILY 01/24/16 Reported Potassium Chloride Er (Potassium Chloride Microencaps) 20 Meq Tab 5 Meq PO QPM 90 08/21/15 Reported Zantac (Ranitidine HCl) 150 Mg Tab 150 Mg PO BID 06/30/10 Reported Review of Systems Unable to obtain as patient is sedate Physical Exam Date Time Temp Pulse Resp B/P (MAP) Pulse Ox O2 Delivery O2 Flow Rate FiO2 10/08/17 07:38 36.5 59 20 148/77 (100) 96 Room Air 10/08/17 04:00 37.1 60 20 129/75 (93) 95 Room Air 10/08/17 00:00 Room Air 10/07/17 23:29 36.7 60 20 143/82 (102) 92 Room Air 10/07/17 20:32 36.9 58 18 150/89 (109) 95 Room Air 10/07/17 16:00 Room Air 10/07/17 15:52 36.5 60 18 118/63 (81) 95 Room Air 10/07/17 11:41 36.6 63 18 137/74 (95) 93 General Appearance: no apparent distress Eyes: + pertinent finding (sclera icteric) Neck: supple Respiratory/Chest: lungs clear Cardiovascular: regular rate, rhythm, no murmur Abdomen: normal bowel sounds, + distended, + pertinent finding (obese) Extremities: + swelling Neurologic/Psych: + pertinent finding (lethargic) Skin: + jaundice Laboratory Results Last 24 Hours Test 10/07/17 11:30 10/07/17 16:25 10/07/17 20:42 10/08/17 05:06 Bedside Glucose 143 mg/dl 145 mg/dl 155 mg/dl White Blood Count 7.88 K/uL Red Blood Count 4.42 M/uL Hemoglobin 12.4 g/dL Hematocrit 38.1 % Mean Corpuscular Volume 86.2 fL Mean Corpuscular Hemoglobin 28.1 pg Mean Corpuscular Hemoglobin Concent 32.5 g/dl RDW Standard Deviation 49.3 fL RDW Coefficient of Variation 15.6 % Platelet Count 119 K/uL Mean Platelet Volume 10.7 fL Nucleated RBC Absolute Count (auto) 0.03 K/uL Nucleated Red Blood Cells % 0.3 % Sodium Level 137 mmol/L Potassium Level 4.1 mmol/L Chloride Level 105 mmol/L Carbon Dioxide Level 20 mmol/L Anion Gap 12.0 mmol/L Blood Urea Nitrogen 81 mg/dl Creatinine 2.96 mg/dl Est Creatinine Clear Calc Drug Dose 25.8 ml/min Estimated GFR () 22.1 Estimated GFR (Non- 19.1 BUN/Creatinine Ratio 27.2 Random Glucose 124 mg/dl Calcium Level 8.6 mg/dl Total Bilirubin 6.8 mg/dl Aspartate Amino Transf (AST/SGOT) 67 U/L Alanine Aminotransferase (ALT/SGPT) 39 U/L Alkaline Phosphatase 615 U/L Total Protein 7.5 gm/dl Albumin 2.3 gm/dl Globulin 5.2 gm/dl Albumin/Globulin Ratio 0.4 Test 10/08/17 07:23 Bedside Glucose 117 mg/dl Impression Patient is a 81 year old male admitted with cellulitis and weakness with elevated total bilirubin and alkaline phosphatase in the setting of acute infection and IV antibiotic use. Plan 1. As patient has a pacemaker, not a candidate for MRCP. 2. Continue to monitor liver panel off Zosyn. Per livertox database, a bilirubin elevation can be seen in 3-5%of cases with resolution noted quickly after discontinuation. Rocephin has been linked to cholestatic hepatitis and can contribute to biliary sludge in 3-46% of patients. Will need to trend liver panel closely. 3. If transaminitis persists, may need to consider EUS. Thank you for allowing us to participate in the care of this pleasant patient. We will follow clinical course closely and advise further as appropriate. If you have any questions or concerns, please do not hesitate to contact us. Agree with BELINDA Davis as above Abd: Soft, NT, ND, +BS Continue current supportive care Most likely cholestatic liver injury from Abx Consider further workup if signs and symptoms do not respond to stopping Zosyn Discussed case in detail with
--- NOTE | 2017-10-08 12:17 | Family Medicine Progress Note ---
Progress Note Date of Service Oct 08, 2017. Subjective Pt evaluation today including: conversation w/ patient, physical exam Pain: Moderate amount of pain PO Intake: Tolerating well Voiding: no voiding problems Patient appears to be in a moderate amount of pain, but states the pain medications are working okay. He seems distressed and states he just wants to get better. Constitutional: + fever, + chills Respiratory: No cough Cardiovascular: + chest pain Abdomen: No pain, No nausea, No vomiting, No diarrhea Musculoskeletal: + muscle pain, + swelling, + problem reported (RLE swelling and pain) Psychiatric: + anhedonism Skin: No color change All Other Systems: Reviewed and Negative Medications Current Inpatient Medications Medications (Trade) Dose Ordered Sig/Melvin Route Start Time Stop Time Status Last Admin Dose Admin Heparin Sodium (Porcine) (Heparin Sq 5000 Unit/0.5ml) 5,000 unit Q12 SQ 10/03/17 23:00 11/02/17 22:59 10/08/17 08:12 5,000 UNIT Acetaminophen (Tylenol Tab) 650 mg Q4H PRN PO 10/03/17 20:30 11/02/17 20:29 10/05/17 14:19 650 MG Al Hydrox/Mg Hydrox/Simethicone (Maalox Max Susp) 15 ml Q4H PRN PO 10/03/17 20:30 11/02/17 20:29 Magnesium Hydroxide (Milk Of Magnesia Susp) 30 ml Q12H PRN PO 10/03/17 20:30 11/02/17 20:29 10/04/17 15:59 30 ML Ondansetron HCl (Zofran Inj) 4 mg Q6H PRN IV 10/03/17 20:30 11/02/17 20:29 Polyethylene (Miralax Powder Packet) 17 gm DAILY PRN PO 10/03/17 20:30 11/02/17 20:29 Acetaminophen (Tylenol Tab) 1,000 mg QAM PO 10/04/17 09:00 11/03/17 08:59 10/08/17 08:08 1,000 MG Aspirin (Ecotrin Tab) 81 mg DAILY PO 10/04/17 09:00 11/03/17 08:59 10/08/17 08:08 81 MG Ranitidine HCl (zANTac TAB) 150 mg BID PO 10/03/17 21:00 11/02/17 20:59 10/08/17 08:06 150 MG Simvastatin (Zocor Tab) 40 mg QPM PO 10/03/17 21:00 11/02/17 20:59 10/07/17 20:34 40 MG Morphine Sulfate (MoRPHine SULFATE INJ) 4 mg Q4H PRN IV 10/03/17 22:30 10/17/17 22:29 10/08/17 07:51 4 MG Insulin Aspart (novoLOG ASPART) SLIDING SCALE If C... ACHS SC 10/04/17 06:30 11/03/17 06:29 10/07/17 17:59 3 UNITS Glucose (Glucose 40% Gel) 15-30 GRAMS 15 GRAMS... UD PRN PO 10/04/17 00:00 11/03/17 00:00 Glucose (Glucose Chew Tab) 4-8 Tablets 4 Tabl... UD PRN PO 10/04/17 00:00 11/03/17 00:00 Dextrose (Dextrose 50% 50ML Syringe) 25-50ML 25ML FOR ... UD PRN IV 10/04/17 00:00 11/03/17 00:00 Glucagon (Glucagon Inj) 1 mg UD PRN SQ 10/04/17 00:00 11/03/17 00:00 Carbohydrates (Carbohydrates For Hypoglycemia) 15-30 GRAMS 15 grams if BSG 54-69... UD PRN PO 10/04/17 00:00 11/03/17 00:00 Senna (Senokot Tab) 8.6 mg QAM PO 10/05/17 09:00 11/04/17 08:59 10/08/17 08:06 8.6 MG Metoprolol Tartrate (Lopressor Tab) 25 mg BID PO 10/05/17 21:00 11/04/17 20:59 10/07/17 20:34 25 MG Insulin Glargine (Lantus Solostar Pen) 15 units QPM SC 10/05/17 21:00 11/03/17 20:59 10/07/17 20:51 15 UNITS Ceftriaxone Sodium 2000 mg/ Dextrose 70 ml @ 100 mls/hr Q24H IV 10/06/17 14:00 10/16/17 13:59 10/07/17 14:10 100 MLS/HR Furosemide (Lasix Tab) 40 mg QAM PO 10/08/17 09:00 11/07/17 08:59 10/08/17 08:07 40 MG Objective Vital Signs Date Time Temp Pulse Resp B/P (MAP) Pulse Ox O2 Delivery O2 Flow Rate FiO2 10/08/17 11:06 37.2 57 18 145/70 (95) 97 Room Air 10/08/17 08:00 96 Room Air 10/08/17 07:38 36.5 59 20 148/77 (100) 96 Room Air 10/08/17 04:00 37.1 60 20 129/75 (93) 95 Room Air 10/08/17 00:00 Room Air 10/07/17 23:29 36.7 60 20 143/82 (102) 92 Room Air 10/07/17 20:32 36.9 58 18 150/89 (109) 95 Room Air 10/07/17 16:00 Room Air 10/07/17 15:52 36.5 60 18 118/63 (81) 95 Room Air Physical Exam General Appearance: WD/WN, no apparent distress Eyes: EOMI, sclerae normal ENT: hearing grossly normal Neck: no adenopathy Respiratory/Chest: lungs clear, normal breath sounds, no respiratory distress, no accessory muscle use Cardiovascular: regular rate, rhythm, no murmur Abdomen: non tender, soft, + distended Extremities: + pedal edema (RLE, improving rubor and calor), + pertinent finding (left above knee amputation) Neurologic/Psychiatric: no motor/sensory deficits, alert, normal mood/affect Skin: + pertinent finding (RLE 3+swelling, erythema ) Laboratory Results Last Resulted 10/08/17 05:06 Last Resulted 10/08/17 05:06 Assessment and Plan Mr. Juan is a 81 yo M with PMH of chronic diastolic CHF, CKD III, T2DM, HTN, HLD, A-fib, BPH, anemia and left AK amputation who presented with RLE pain, swelling, and generalized weakness admitted for RLE cellulitis and sepsis POA. Sepsis POA in setting of RLE Cellulitis, Leukocytosis, Elevated Lactate - XR Foot, Tib/FIB, negative - day 4 of abx -> transitioned to Rocephin from zosyn and vancomycin - blood cultures negative - WCC improved from 16 to 7.8 - Elevate leg, wrap in ZULY bandage to help relieve edema. Right leg edema (left leg BKA) - Improving - elevate leg, ZULY wrap - c/o pain in leg likely from leg edema. - Cut down on morphine today as patient and patient family felt he was "loopy" THOMAS - likely secondary to sepsis and dehydration/hypoperfusion - Downtrending/stable - 2.83 today, improved from admission creatinine of 4.1 ( baseline 1.5-2.4) - Discontinue maintenance IVF in setting of RLE edema - Resume lasix at 40 mg daily. Will continue to monitor lab values Elevated LFTs - Elevated bilirubin and alk phos present on admission & continue to trend upwards - no signs/symptoms of liver disease - biliary US WNL - may be ?partly due to treatment w/zosyn - switched to rocephin - trend LFTs -> will likely require further eval in outpatient setting if numbers don't return back to normal - Numbers continue to rise, GI consult placed, appreciate recs Thrombocytopenia - platelets stable at 98, no evidence of bleeding - seems to be around baseline, however no mention of thrombocytopenia in prior hospital notes - outpatient f/u Venous stasis ulcer - likely entry point leading to cellulitis - wound care consulted Chronic Diastolic CHF, Afib s/p pacemaker, HTN - last echo Apr 2016 showed normal EF - Held spironolactone given THOMAS & infection. Resuming lasix at 40mgs. Will titrate up to the home dose depending on the fluid volume status. - not on anticoagulation given h/o GI hemorrhage - continue home dose of metoprolol tartrate 25mg BID - Monitor volume status, i/o, daily weight T2DM - ISS - continue Lantus 15 units sq qpm - may benefit from switch to Lantus as opposed to NPH on d/c - HbA1c 6.6% HLD - Continue Statin GERD - Continue home Zantac Code: Full DVT Prophylaxis: Heparin 5000 q12h FEN: no IVF, heart healthy Diabetic diet Disposition: Remains on med/surg. - PT/OT eval given he will likely require rehab (?[facility]) on d/c Resident Tracking Resident Involvement: Resident Care Provided Care Provided: Adult Hospital Medicine Reviewed: Pt Seen/Exam by Me History continues to c/o pain in right leg. has been getting IV morphine for it. hasn't been out of bed. Constitutional: denies: fever Respiratory: negative: short of breath Cardiovascular: denies chest pain Musculoskeletal: positive: other (right leg pain +) General Appearance: no apparent distress (sitting upright in bed) Respiratory: lungs clear, no respiratory distress Cardiovascular: regular rate, rhythm Extremities: other (right leg - skin not as stretched and showing wrinkles. venous stasis changes +) Neurologic/Psychiatric: other (somnolent but easily arousable. c/o leg pain on waking up) Assessment/Plan Resident Physician Supervision Note: I independently interviewed and examined the patient and verified the guallpa history and physical, reviewed labs and image studies, discussed the case with the resident Dr. Reno and agree with the findings and care plan.
[2017-10-08] MEDS: CEFTRIAXONE SOD INJ 2,000 MG in DEXTROSE 5% 50ML 50 ML IV SCH (14:00)
--- NOTE | 2017-10-08 16:01 | Progress Note ---
Progress Note Date of Service Oct 08, 2017. Progress Note Updated family from [place] on findings. Improving cellulitis albeit slowly. Wound care is on board. Bumping LFTs - unknown origin. Pt has had gallstones in the past and a cholecystectomy. He denies any RUQ or any abdominal pain - to be fair his RLE is bothering him the most. Never been diagnosed with hepatitis. Family reports that the pain medication is making the patient confused - would like to dial it back a bit. Family is leaving for [facility] - Daughter Stacie would like updates ([phone]). GI has not seen the patient, I will make pt NPO after midnight for any possible procedure GI would like to do. I will also decrease pain medication dose. 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
[2017-10-08] MEDS ORDERED: MoRPHine SULFATE 4 MG/ML 1 ML CARP\\VIAL IV PRN (16:15)
[2017-10-08] MEDS: MAGNESIUM HYDROXIDE SUSP 30 ML UDC PO PRN (17:13)
[2017-10-08] MEDS: SIMVASTATIN 40 MG TAB PO SCH (21:01)
[2017-10-08] MEDS: INSULIN GLARGINE SOLOSTAR 100 UNITS/ML 3 ML PEN SC SCH (21:03)
[2017-10-09] VITALS (11 sets, daily range): BP systolic 120–151; BP diastolic 68–80; PULSE 59–60; TEMP 36.4–37; O2SAT 97–99
[2017-10-09 07:18] LABS: HEMATOCRIT 37.7 % (42-52); HEMOGLOBIN 12.6 g/dL (14.0-18.0); MEAN CELL VOLUME 85.1 fL (80-100); MEAN CORPUSCULAR HEMOGLOBIN 28.4 pg (25-34); MEAN CORPUSCULAR HGB CONC 33.4 g/dl (32-36); PLATELET COUNT 133 K/uL (130-400); RED CELL DISTRIBUTION WIDTH CV 15.9 % (11.5-14.5); RED CELL DISTRIBUTION WIDTH SD 48.1 fL (36.4-46.3); WHITE BLOOD COUNT 10.67 K/uL (4.8-10.8)
[2017-10-09 07:57] LABS: ALBUMIN 2.1 gm/dl (3.4-5.0); CALCIUM 8.7 mg/dl (8.5-10.1); CREATININE 2.83 mg/dl (0.60-1.40); POTASSIUM 4.3 mmol/L (3.5-5.1)
[2017-10-09 08:04] LABS: TOTAL PROTEIN 7.3 gm/dl (6.4-8.2)
[2017-10-09] MEDS: FUROSEMIDE 40 MG TAB PO SCH (08:35)
[2017-10-09] MEDS: SENNA 8.6 MG TAB PO SCH (08:35)
[2017-10-09] MEDS: ASPIRIN 81 MG ECTAB PO SCH (08:35)
[2017-10-09] MEDS: ACETAMINOPHEN 500 MG TAB PO SCH (08:36)
[2017-10-09] MEDS: METOPROLOL TARTRATE 25 MG TAB PO SCH ×2 (08:38→21:01)
[2017-10-09] MEDS: RANITIDINE HCL 150 MG TAB PO SCH ×2 (08:38→21:01)
[2017-10-09] MEDS: HEPARIN SOD 5000 UNIT/0.5 ML CARP SQ SCH ×2 (08:40→21:02)
[2017-10-09] MEDS: INSULIN ASPART 100 UNITS/ML 3 ML PEN SC SCH ×4 (09:09→20:42)
--- NOTE | 2017-10-09 09:34 | Gastroenterology Progress Note ---
Progress Note Date of Service: Oct 09, 2017 Subjective Pt evaluation today including: conversation w/ patient, chart review, lab review Patient with continued jaundice. No abdominal pain or pruritus. No nausea or vomiting. Tolerating a clear liquid diet. TB and ALP increased only slightly from yesterday and were 6.9 and 694 respectively today. Review of Systems Constitutional: + fatigue Abdomen: + see HPI Musculoskeletal: + joint pain, + swelling Medications Current Inpatient Medications Medications (Trade) Dose Ordered Sig/Melvin Route Start Time Stop Time Status Last Admin Dose Admin Heparin Sodium (Porcine) (Heparin Sq 5000 Unit/0.5ml) 5,000 unit Q12 SQ 10/03/17 23:00 11/02/17 22:59 10/09/17 08:40 5,000 UNIT Acetaminophen (Tylenol Tab) 650 mg Q4H PRN PO 10/03/17 20:30 11/02/17 20:29 10/05/17 14:19 650 MG Al Hydrox/Mg Hydrox/Simethicone (Maalox Max Susp) 15 ml Q4H PRN PO 10/03/17 20:30 11/02/17 20:29 Magnesium Hydroxide (Milk Of Magnesia Susp) 30 ml Q12H PRN PO 10/03/17 20:30 11/02/17 20:29 10/08/17 17:13 30 ML Ondansetron HCl (Zofran Inj) 4 mg Q6H PRN IV 10/03/17 20:30 11/02/17 20:29 Polyethylene (Miralax Powder Packet) 17 gm DAILY PRN PO 10/03/17 20:30 11/02/17 20:29 Acetaminophen (Tylenol Tab) 1,000 mg QAM PO 10/04/17 09:00 11/03/17 08:59 10/09/17 08:36 1,000 MG Aspirin (Ecotrin Tab) 81 mg DAILY PO 10/04/17 09:00 11/03/17 08:59 10/09/17 08:35 81 MG Ranitidine HCl (zANTac TAB) 150 mg BID PO 10/03/17 21:00 11/02/17 20:59 10/09/17 08:38 150 MG Simvastatin (Zocor Tab) 40 mg QPM PO 10/03/17 21:00 11/02/17 20:59 10/08/17 21:01 40 MG Insulin Aspart (novoLOG ASPART) SLIDING SCALE If C... ACHS SC 10/04/17 06:30 11/03/17 06:29 10/09/17 09:09 4 UNITS Glucose (Glucose 40% Gel) 15-30 GRAMS 15 GRAMS... UD PRN PO 10/04/17 00:00 11/03/17 00:00 Glucose (Glucose Chew Tab) 4-8 Tablets 4 Tabl... UD PRN PO 10/04/17 00:00 11/03/17 00:00 Dextrose (Dextrose 50% 50ML Syringe) 25-50ML 25ML FOR ... UD PRN IV 10/04/17 00:00 11/03/17 00:00 Glucagon (Glucagon Inj) 1 mg UD PRN SQ 10/04/17 00:00 11/03/17 00:00 Carbohydrates (Carbohydrates For Hypoglycemia) 15-30 GRAMS 15 grams if BSG 54-69... UD PRN PO 10/04/17 00:00 11/03/17 00:00 Senna (Senokot Tab) 8.6 mg QAM PO 10/05/17 09:00 11/04/17 08:59 10/09/17 08:35 8.6 MG Metoprolol Tartrate (Lopressor Tab) 25 mg BID PO 10/05/17 21:00 11/04/17 20:59 10/09/17 08:38 25 MG Insulin Glargine (Lantus Solostar Pen) 15 units QPM SC 10/05/17 21:00 11/03/17 20:59 10/08/17 21:03 15 UNITS Ceftriaxone Sodium 2000 mg/ Dextrose 70 ml @ 100 mls/hr Q24H IV 10/06/17 14:00 10/16/17 13:59 10/08/17 14:00 100 MLS/HR Furosemide (Lasix Tab) 40 mg QAM PO 10/08/17 09:00 11/07/17 08:59 10/09/17 08:35 40 MG Morphine Sulfate (MoRPHine SULFATE INJ) 2 mg Q4H PRN IV 10/08/17 19:00 10/17/17 22:29 Objective Vital Signs Date Time Temp Pulse Resp B/P (MAP) Pulse Ox O2 Delivery O2 Flow Rate FiO2 10/09/17 08:40 60 151/78 (102) 10/09/17 07:24 37.0 59 18 145/77 (99) 99 10/09/17 04:00 36.7 59 20 131/72 (91) 97 Room Air 10/09/17 00:29 36.4 59 20 138/77 (97) 98 Room Air 10/09/17 00:20 Room Air 10/08/17 20:56 62 117/65 (82) 93 Room Air 62 10/08/17 20:15 37.0 59 20 131/71 (91) 95 Room Air 10/08/17 19:15 93 Room Air 10/08/17 16:12 36.6 59 16 128/67 (87) 96 Room Air 10/08/17 16:00 Room Air 10/08/17 11:06 37.2 57 18 145/70 (95) 97 Room Air Physical Exam General Appearance: no apparent distress Respiratory/Chest: lungs clear Cardiovascular: regular rate, rhythm Abdomen: normal bowel sounds, non tender, soft Skin: + jaundice Laboratory Results Last 24 Hours Test 10/08/17 11:15 10/08/17 16:46 10/08/17 20:39 10/09/17 07:04 Bedside Glucose 127 mg/dl 155 mg/dl 169 mg/dl White Blood Count 10.67 K/uL Red Blood Count 4.43 M/uL Hemoglobin 12.6 g/dL Hematocrit 37.7 % Mean Corpuscular Volume 85.1 fL Mean Corpuscular Hemoglobin 28.4 pg Mean Corpuscular Hemoglobin Concent 33.4 g/dl RDW Standard Deviation 48.1 fL RDW Coefficient of Variation 15.9 % Platelet Count 133 K/uL Mean Platelet Volume 10.0 fL Sodium Level 133 mmol/L Potassium Level 4.3 mmol/L Chloride Level 102 mmol/L Carbon Dioxide Level 21 mmol/L Anion Gap 10.0 mmol/L Blood Urea Nitrogen 81 mg/dl Creatinine 2.83 mg/dl Est Creatinine Clear Calc Drug Dose 26.0 ml/min Estimated GFR () 23.3 Estimated GFR (Non- 20.1 BUN/Creatinine Ratio 28.4 Random Glucose 140 mg/dl Calcium Level 8.7 mg/dl Total Bilirubin 6.9 mg/dl Direct Bilirubin 6.0 mg/dl Aspartate Amino Transf (AST/SGOT) 72 U/L Alanine Aminotransferase (ALT/SGPT) 38 U/L Alkaline Phosphatase 694 U/L Total Protein 7.3 gm/dl Albumin 2.1 gm/dl Globulin 5.2 gm/dl Albumin/Globulin Ratio 0.4 Test 10/09/17 07:50 Bedside Glucose 143 mg/dl Assessment and Plan Patient is a 81 year old male admitted with cellulitis and weakness with elevated total bilirubin and alkaline phosphatase in the setting of acute infection and IV antibiotic use. 1. Continue supportive care. 2. Consider ongoing use of Rocephin in regard to risks of biliary cholestasis with this medication. 3. No plan for EUS at this time. Would continue to trend liver panel for now. Agree with BELINDA Davis as above Abd: Soft, NT, ND, +BS Continue to follow Liver panel daily No signs of fulminant hepatic failure.
[2017-10-09] MEDS ORDERED: LEVOFLOXACIN 750 MG TAB PO ONE (14:00)
[2017-10-09] MEDS: MoRPHine SULFATE 2 MG/ML CARP IV PRN (14:05)
--- NOTE | 2017-10-09 15:29 | Family Medicine Progress Note ---
Progress Note Date of Service Oct 09, 2017. Subjective Pt evaluation today including: conversation w/ patient, physical exam Pain: moderate RLE pain PO Intake: Tolerating well Voiding: no voiding problems Patient continues to express pain in RLE. He thinks this may be improving but he 's not sure. He states he is now experiencing diffuse abdominal pain. Constitutional: No fever, No chills ENT: No hearing loss Respiratory: No cough, No shortness of breath Cardiovascular: No chest pain Abdomen: + pain Musculoskeletal: + muscle pain, + swelling, + calf pain (RLE from Edematous changes) Endo: + fatigue All Other Systems: Reviewed and Negative Medications Current Inpatient Medications Medications (Trade) Dose Ordered Sig/Melvin Route Start Time Stop Time Status Last Admin Dose Admin Heparin Sodium (Porcine) (Heparin Sq 5000 Unit/0.5ml) 5,000 unit Q12 SQ 10/03/17 23:00 11/02/17 22:59 10/09/17 08:40 5,000 UNIT Acetaminophen (Tylenol Tab) 650 mg Q4H PRN PO 10/03/17 20:30 11/02/17 20:29 10/05/17 14:19 650 MG Al Hydrox/Mg Hydrox/Simethicone (Maalox Max Susp) 15 ml Q4H PRN PO 10/03/17 20:30 11/02/17 20:29 Magnesium Hydroxide (Milk Of Magnesia Susp) 30 ml Q12H PRN PO 10/03/17 20:30 11/02/17 20:29 10/08/17 17:13 30 ML Ondansetron HCl (Zofran Inj) 4 mg Q6H PRN IV 10/03/17 20:30 11/02/17 20:29 Polyethylene (Miralax Powder Packet) 17 gm DAILY PRN PO 10/03/17 20:30 11/02/17 20:29 Acetaminophen (Tylenol Tab) 1,000 mg QAM PO 10/04/17 09:00 11/03/17 08:59 10/09/17 08:36 1,000 MG Aspirin (Ecotrin Tab) 81 mg DAILY PO 10/04/17 09:00 11/03/17 08:59 10/09/17 08:35 81 MG Ranitidine HCl (zANTac TAB) 150 mg BID PO 10/03/17 21:00 11/02/17 20:59 8/1/18 08:38 150 MG Simvastatin (Zocor Tab) 40 mg QPM PO 10/03/17 21:00 11/02/17 20:59 10/08/17 21:01 40 MG Insulin Aspart (novoLOG ASPART) SLIDING SCALE If C... ACHS SC 10/04/17 06:30 11/03/17 06:29 10/09/17 12:59 6 UNITS Glucose (Glucose 40% Gel) 15-30 GRAMS 15 GRAMS... UD PRN PO 10/04/17 00:00 11/03/17 00:00 Glucose (Glucose Chew Tab) 4-8 Tablets 4 Tabl... UD PRN PO 10/04/17 00:00 11/03/17 00:00 Dextrose (Dextrose 50% 50ML Syringe) 25-50ML 25ML FOR ... UD PRN IV 10/04/17 00:00 11/03/17 00:00 Glucagon (Glucagon Inj) 1 mg UD PRN SQ 10/04/17 00:00 11/03/17 00:00 Carbohydrates (Carbohydrates For Hypoglycemia) 15-30 GRAMS 15 grams if BSG 54-69... UD PRN PO 10/04/17 00:00 11/03/17 00:00 Senna (Senokot Tab) 8.6 mg QAM PO 10/05/17 09:00 11/04/17 08:59 10/09/17 08:35 8.6 MG Metoprolol Tartrate (Lopressor Tab) 25 mg BID PO 10/05/17 21:00 11/04/17 20:59 10/09/17 08:38 25 MG Insulin Glargine (Lantus Solostar Pen) 15 units QPM SC 10/05/17 21:00 11/03/17 20:59 10/08/17 21:03 15 UNITS Furosemide (Lasix Tab) 40 mg QAM PO 10/08/17 09:00 11/07/17 08:59 10/09/17 08:35 40 MG Morphine Sulfate (MoRPHine SULFATE INJ) 2 mg Q4H PRN IV 10/08/17 19:00 10/17/17 22:29 10/09/17 14:05 2 MG Objective Vital Signs Date Time Temp Pulse Resp B/P (MAP) Pulse Ox O2 Delivery O2 Flow Rate FiO2 10/09/17 11:32 36.8 60 18 126/69 (88) 97 10/09/17 10:00 97 Room Air 10/09/17 08:40 60 151/78 (102) 10/09/17 07:24 37.0 59 18 145/77 (99) 99 10/09/17 04:00 36.7 59 20 131/72 (91) 97 Room Air 10/09/17 00:29 36.4 59 20 138/77 (97) 98 Room Air 10/09/17 00:20 Room Air 10/08/17 20:56 62 117/65 (82) 93 Room Air 62 10/08/17 20:15 37.0 59 20 131/71 (91) 95 Room Air 10/08/17 19:15 93 Room Air 10/08/17 16:12 36.6 59 16 128/67 (87) 96 Room Air 10/08/17 16:00 Room Air Physical Exam General Appearance: WD/WN, no apparent distress Eyes: EOMI ENT: hearing grossly normal Neck: no carotid bruits, trachea midline Respiratory/Chest: chest non-tender, lungs clear, normal breath sounds, no respiratory distress, no accessory muscle use Cardiovascular: regular rate, rhythm, no murmur Abdomen: + tenderness (diffuse) Extremities: + pertinent finding (Severely edematous RLE from toes to knee, red , warm) Neurologic/Psychiatric: + disoriented (oriented to self and place) Laboratory Results Last Resulted 10/09/17 07:04 Last Resulted 10/09/17 07:04 Assessment and Plan Mr. Juan is a 81 yo M with PMH of chronic diastolic CHF, CKD III, T2DM, HTN, HLD, A-fib, BPH, anemia and left AK amputation who presented with RLE pain, swelling, and generalized weakness admitted for RLE cellulitis and sepsis POA. Sepsis POA in setting of RLE Cellulitis, Leukocytosis, Elevated Lactate - XR Foot, Tib/FIB, negative - day 6 of abx -> transitioned to levaquin today 750 mg daily (from Rocephin, from zosyn and vancomycin--concern for worsening transaminitis) - blood cultures negative - WCC improved from admission but now again going up - today up to 10 - Elevate leg, wrap in ZULY bandage to help relieve edema. Right leg edema (left leg BKA) - Improving - elevate leg, ZULY wrap - c/o pain in leg likely from leg edema. THOMAS - likely secondary to sepsis and dehydration/hypoperfusion - Downtrending/stable - 2.83 today, improved from admission creatinine of 4.1 ( baseline 1.5-2.4) - Discontinue maintenance IVF in setting of RLE edema - Resume lasix at 40 mg daily. Will continue to monitor lab values Elevated LFTs - Elevated bilirubin and alk phos present on admission & continue to trend upwards. No sign of liver failure. - starting to show scleral icterus and jaundice - biliary US WNL - may be ?partly due to treatment w/zosyn - switched to rocephin--continued to rise, switched to levaquin - GI following appreciate recs Thrombocytopenia - platelets stable at 98, no evidence of bleeding - seems to be around baseline, however no mention of thrombocytopenia in prior hospital notes - outpatient f/u Venous stasis ulcer - likely entry point leading to cellulitis - wound care consulted Chronic Diastolic CHF, Afib s/p pacemaker, HTN - last echo Apr 2016 showed normal EF - Held spironolactone given THOMAS & infection. Resumed lasix at 40mgs. To titrate up to the home dose depending on the fluid volume status. - not on anticoagulation given h/o GI hemorrhage - continue home dose of metoprolol tartrate 25mg BID - Monitor volume status, i/o, daily weight T2DM - ISS - continue Lantus 15 units sq qpm - may benefit from switch to Lantus as opposed to NPH on d/c - HbA1c 6.6% HLD - Continue Statin GERD - Continue home Zantac Code: Full DVT Prophylaxis: Heparin 5000 q12h FEN: no IVF, heart healthy Diabetic diet Disposition: Remains on med/surg. - PT/OT eval given he will likely require rehab (?[facility]) on d/c Resident Tracking Resident Involvement: Resident Care Provided Care Provided: Adult Hospital Medicine Reviewed: Pt Seen/Exam by Me History c/o feeling tired and leg pain. doesn't want to get out of bed. Constitutional: denies: fever Respiratory: negative: short of breath Cardiovascular: denies chest pain General Appearance: no apparent distress Respiratory: lungs clear (anteriorly), no respiratory distress Cardiovascular: regular rate, rhythm Neurologic/Psychiatric: alert, other (oriented to person, place. ) Skin Characteristics: other (right leg edema +, venous stasis changes+) Assessment/Plan Resident Physician Supervision Note: I independently interviewed and examined the patient and verified the guallpa history and physical, reviewed labs and image studies, discussed the case with the resident Dr. Reno and agree with the findings and care plan.
[2017-10-09] MEDS: SIMVASTATIN 40 MG TAB PO SCH (21:01)
[2017-10-09] MEDS: INSULIN GLARGINE SOLOSTAR 100 UNITS/ML 3 ML PEN SC SCH (21:02)
[2017-10-10] VITALS (9 sets, daily range): BP systolic 110–131; BP diastolic 65–75; PULSE 55–61; TEMP 36.2–37; O2SAT 97–99
[2017-10-10] MEDS: RANITIDINE HCL 150 MG TAB PO SCH ×2 (07:46→21:28)
[2017-10-10] MEDS: MoRPHine SULFATE 2 MG/ML CARP IV PRN ×3 (07:46→22:24)
[2017-10-10] MEDS: FUROSEMIDE 40 MG TAB PO SCH (07:46)
[2017-10-10] MEDS: ASPIRIN 81 MG ECTAB PO SCH (07:46)
[2017-10-10] MEDS: METOPROLOL TARTRATE 25 MG TAB PO SCH ×2 (07:47→20:42)
[2017-10-10] MEDS: ACETAMINOPHEN 500 MG TAB PO SCH (07:47)
[2017-10-10] MEDS: SENNA 8.6 MG TAB PO SCH (07:47)
[2017-10-10 07:52] LABS: BASO % 0.2 %; BASO ABS # 0.02 K/uL (0-0.2); EOS % 1.3 %; EOS ABS # 0.15 K/uL (0-0.5); HEMATOCRIT 39.4 % (42-52); HEMOGLOBIN 13.1 g/dL (14.0-18.0); IG# 0.06 K/uL (0.00-0.02); LYMPH % 8.3 %; LYMPH ABS # 0.94 K/uL (1.2-3.4); MEAN CELL VOLUME 85.7 fL (80-100); MEAN CORPUSCULAR HEMOGLOBIN 28.5 pg (25-34); MEAN CORPUSCULAR HGB CONC 33.2 g/dl (32-36); MEAN PLATELET VOLUME 10.5 fL (7.4-10.4); MONO % 8.3 %; MONO ABS # 0.94 K/uL (0.11-0.59); NEUT % 81.4 %; NEUT ABS # 9.22 K/uL (1.4-6.5); PLATELET COUNT 135 K/uL (130-400); RED CELL DISTRIBUTION WIDTH CV 16.1 % (11.5-14.5); RED CELL DISTRIBUTION WIDTH SD 48.8 fL (36.4-46.3); WHITE BLOOD COUNT 11.33 K/uL (4.8-10.8)
[2017-10-10] MEDS: INSULIN ASPART 100 UNITS/ML 3 ML PEN SC SCH ×4 (07:54→20:46)
[2017-10-10] MEDS: HEPARIN SOD 5000 UNIT/0.5 ML CARP SQ SCH ×2 (07:55→20:48)
[2017-10-10 08:30] LABS: CALCIUM 8.7 mg/dl (8.5-10.1); CREATININE 2.59 mg/dl (0.60-1.40); POTASSIUM 4.2 mmol/L (3.5-5.1)
[2017-10-10 08:37] LABS: ALBUMIN 2.1 gm/dl (3.4-5.0); TOTAL PROTEIN 7.3 gm/dl (6.4-8.2)
[2017-10-10] MEDS ORDERED: FUROSEMIDE 40 MG TAB PO ONE (10:00)
--- NOTE | 2017-10-10 10:20 | Gastroenterology Progress Note ---
Progress Note Date of Service: Oct 10, 2017 Subjective Pt evaluation today including: conversation w/ patient, physical exam, chart review, lab review, review of inpatient medication list Patient reports ongoing leg pain. Denies any pruritus or abdominal pain at present. ALP/TB did continue to rise in the setting of antibiotic use, but all antibiotics have now been discontinued. Liver panel today is as follows: TB 7.3 , ALT 41, AST 82, and ALP 821. No fever or hypotension. Review of Systems Constitutional: + see HPI Respiratory: No problem reported Cardiac: No problem reported Abdomen: + see HPI Musculoskeletal: + see HPI Medications Current Inpatient Medications Medications (Trade) Dose Ordered Sig/Melvin Route Start Time Stop Time Status Last Admin Dose Admin Heparin Sodium (Porcine) (Heparin Sq 5000 Unit/0.5ml) 5,000 unit Q12 SQ 10/03/17 23:00 11/02/17 22:59 10/10/17 07:55 5,000 UNIT Acetaminophen (Tylenol Tab) 650 mg Q4H PRN PO 10/03/17 20:30 11/02/17 20:29 10/05/17 14:19 650 MG Al Hydrox/Mg Hydrox/Simethicone (Maalox Max Susp) 15 ml Q4H PRN PO 10/03/17 20:30 11/02/17 20:29 Magnesium Hydroxide (Milk Of Magnesia Susp) 30 ml Q12H PRN PO 10/03/17 20:30 11/02/17 20:29 10/08/17 17:13 30 ML Ondansetron HCl (Zofran Inj) 4 mg Q6H PRN IV 10/03/17 20:30 11/02/17 20:29 Polyethylene (Miralax Powder Packet) 17 gm DAILY PRN PO 10/03/17 20:30 11/02/17 20:29 Acetaminophen (Tylenol Tab) 1,000 mg QAM PO 10/04/17 09:00 11/03/17 08:59 10/10/17 07:47 1,000 MG Aspirin (Ecotrin Tab) 81 mg DAILY PO 10/04/17 09:00 11/03/17 08:59 10/10/17 07:46 81 MG Ranitidine HCl (zANTac TAB) 150 mg BID PO 10/03/17 21:00 11/02/17 20:59 10/10/17 07:46 150 MG Simvastatin (Zocor Tab) 40 mg QPM PO 10/03/17 21:00 11/02/17 20:59 10/09/17 21:01 40 MG Insulin Aspart (novoLOG ASPART) SLIDING SCALE If C... ACHS SC 10/04/17 06:30 11/03/17 06:29 10/10/17 07:54 5 UNITS Glucose (Glucose 40% Gel) 15-30 GRAMS 15 GRAMS... UD PRN PO 10/04/17 00:00 11/03/17 00:00 Glucose (Glucose Chew Tab) 4-8 Tablets 4 Tabl... UD PRN PO 10/04/17 00:00 11/03/17 00:00 Dextrose (Dextrose 50% 50ML Syringe) 25-50ML 25ML FOR ... UD PRN IV 10/04/17 00:00 11/03/17 00:00 Glucagon (Glucagon Inj) 1 mg UD PRN SQ 10/04/17 00:00 11/03/17 00:00 Carbohydrates (Carbohydrates For Hypoglycemia) 15-30 GRAMS 15 grams if BSG 54-69... UD PRN PO 10/04/17 00:00 11/03/17 00:00 Senna (Senokot Tab) 8.6 mg QAM PO 10/05/17 09:00 11/04/17 08:59 10/10/17 07:47 8.6 MG Metoprolol Tartrate (Lopressor Tab) 25 mg BID PO 10/05/17 21:00 11/04/17 20:59 10/10/17 07:47 25 MG Insulin Glargine (Lantus Solostar Pen) 15 units QPM SC 10/05/17 21:00 11/03/17 20:59 10/09/17 21:02 15 UNITS Morphine Sulfate (MoRPHine SULFATE INJ) 2 mg Q4H PRN IV 10/08/17 19:00 10/17/17 22:29 10/10/17 07:46 2 MG Furosemide (Lasix Tab) 80 mg QAM PO 10/11/17 09:00 11/10/17 08:59 Objective Vital Signs Date Time Temp Pulse Resp B/P (MAP) Pulse Ox O2 Delivery O2 Flow Rate FiO2 10/10/17 07:22 36.6 61 20 131/75 (93) 99 Room Air 10/10/17 04:31 36.7 60 18 123/73 (90) 97 Room Air 10/10/17 00:55 99 Room Air 10/09/17 22:57 36.8 59 18 120/74 (89) 98 Room Air 10/09/17 21:00 60 133/68 (89) 10/09/17 19:12 36.5 60 18 126/75 (92) 99 Room Air 10/09/17 16:00 99 Room Air 10/09/17 15:21 36.4 60 19 135/80 (98) 99 Room Air 10/09/17 11:32 36.8 60 18 126/69 (88) 97 Physical Exam General Appearance: no apparent distress Respiratory/Chest: lungs clear Cardiovascular: regular rate, rhythm Abdomen: normal bowel sounds, non tender, soft Skin: + jaundice Laboratory Results Last 24 Hours Test 10/09/17 11:17 10/09/17 16:23 10/09/17 20:11 10/10/17 07:35 Bedside Glucose 165 mg/dl 142 mg/dl 151 mg/dl 160 mg/dl Test 10/10/17 07:40 White Blood Count 11.33 K/uL Red Blood Count 4.60 M/uL Hemoglobin 13.1 g/dL Hematocrit 39.4 % Mean Corpuscular Volume 85.7 fL Mean Corpuscular Hemoglobin 28.5 pg Mean Corpuscular Hemoglobin Concent 33.2 g/dl Platelet Count 135 K/uL Mean Platelet Volume 10.5 fL Neutrophils (%) (Auto) 81.4 % Lymphocytes (%) (Auto) 8.3 % Monocytes (%) (Auto) 8.3 % Eosinophils (%) (Auto) 1.3 % Basophils (%) (Auto) 0.2 % Neutrophils # (Auto) 9.22 K/uL Lymphocytes # (Auto) 0.94 K/uL Monocytes # (Auto) 0.94 K/uL Eosinophils # (Auto) 0.15 K/uL Basophils # (Auto) 0.02 K/uL RDW Standard Deviation 48.8 fL RDW Coefficient of Variation 16.1 % Immature Granulocyte % (Auto) 0.5 % Immature Granulocyte # (Auto) 0.06 K/uL Sodium Level 134 mmol/L Potassium Level 4.2 mmol/L Chloride Level 101 mmol/L Carbon Dioxide Level 22 mmol/L Anion Gap 11.0 mmol/L Blood Urea Nitrogen 77 mg/dl Creatinine 2.59 mg/dl Est Creatinine Clear Calc Drug Dose 28.5 ml/min Estimated GFR () 26.0 Estimated GFR (Non- 22.4 BUN/Creatinine Ratio 29.8 Random Glucose 151 mg/dl Calcium Level 8.7 mg/dl Total Bilirubin 7.3 mg/dl Aspartate Amino Transf (AST/SGOT) 82 U/L Alanine Aminotransferase (ALT/SGPT) 41 U/L Alkaline Phosphatase 821 U/L Total Protein 7.3 gm/dl Albumin 2.1 gm/dl Globulin 5.2 gm/dl Albumin/Globulin Ratio 0.4 Assessment and Plan Patient is a 81 year old male admitted with cellulitis and weakness with elevated total bilirubin and alkaline phosphatase in the setting of acute infection and IV antibiotic use. 1. Continue to trend liver panel off antibiotic therapy. 2. Check a PT/INR in the morning. 3. Supportive medical care. Agree with BELINDA Davis as above Abd: Soft, NT, ND, +BS Continue supportive care
[2017-10-10] MEDS ORDERED: MoRPHine SULFATE 4 MG/ML 1 ML CARP\\VIAL IV PRN (10:30)
--- NOTE | 2017-10-10 13:51 | DIAGNOSTIC IMAGING REPORT ---
RIGHT LOWER EXTREMITY VENOUS DOPPLER HISTORY: Right calf swelling, exam limited by pain, will premed w morphine COMPARISON STUDY: None. FINDINGS: There is normal compressibility, flow, and augmentation within the right lower extremity deep venous system. IMPRESSION: No DVT within the right lower extremity Electronically signed by: Sanford Zapata M.D. 10/10/2017 1:50 PM Dictated Date/Time: 10/10/2017 1:49 PM
[2017-10-10] MEDS ORDERED: LEVOFLOXACIN 750 MG TAB PO ONE (17:23)
--- NOTE | 2017-10-10 17:39 | Family Medicine Progress Note ---
Progress Note Date of Service Oct 10, 2017. Subjective Pt evaluation today including: conversation w/ patient, physical exam, chart review, lab review, review of inpatient medication list Pain: improving but significant amount of pain in RLE PO Intake: Tolerating well Voiding: no voiding problems Patient clinically more alert today and seems to be in less pain overall. Constitutional: No fever, No chills Cardiovascular: No chest pain Abdomen: No pain, No nausea, No vomiting Musculoskeletal: + muscle pain, + swelling, + calf pain Male : + problem reported (New onset severe scrotal swelling) Neurologic: No memory loss Endo: + fatigue All Other Systems: Reviewed and Negative Medications Current Inpatient Medications Medications (Trade) Dose Ordered Sig/Melvin Route Start Time Stop Time Status Last Admin Dose Admin Heparin Sodium (Porcine) (Heparin Sq 5000 Unit/0.5ml) 5,000 unit Q12 SQ 10/03/17 23:00 11/02/17 22:59 10/10/17 07:55 5,000 UNIT Acetaminophen (Tylenol Tab) 650 mg Q4H PRN PO 10/03/17 20:30 11/02/17 20:29 10/05/17 14:19 650 MG Al Hydrox/Mg Hydrox/Simethicone (Maalox Max Susp) 15 ml Q4H PRN PO 10/03/17 20:30 11/02/17 20:29 Magnesium Hydroxide (Milk Of Magnesia Susp) 30 ml Q12H PRN PO 10/03/17 20:30 11/02/17 20:29 10/08/17 17:13 30 ML Ondansetron HCl (Zofran Inj) 4 mg Q6H PRN IV 10/03/17 20:30 11/02/17 20:29 Polyethylene (Miralax Powder Packet) 17 gm DAILY PRN PO 10/03/17 20:30 11/02/17 20:29 Acetaminophen (Tylenol Tab) 1,000 mg QAM PO 10/04/17 09:00 11/03/17 08:59 10/10/17 07:47 1,000 MG Aspirin (Ecotrin Tab) 81 mg DAILY PO 10/04/17 09:00 11/03/17 08:59 10/10/17 07:46 81 MG Ranitidine HCl (zANTac TAB) 150 mg BID PO 10/03/17 21:00 11/02/17 20:59 10/10/17 07:46 150 MG Simvastatin (Zocor Tab) 40 mg QPM PO 10/03/17 21:00 11/02/17 20:59 10/09/17 21:01 40 MG Insulin Aspart (novoLOG ASPART) SLIDING SCALE If C... ACHS SC 10/04/17 06:30 11/03/17 06:29 10/10/17 12:04 12 UNITS Glucose (Glucose 40% Gel) 15-30 GRAMS 15 GRAMS... UD PRN PO 10/04/17 00:00 11/03/17 00:00 Glucose (Glucose Chew Tab) 4-8 Tablets 4 Tabl... UD PRN PO 10/04/17 00:00 11/03/17 00:00 Dextrose (Dextrose 50% 50ML Syringe) 25-50ML 25ML FOR ... UD PRN IV 10/04/17 00:00 11/03/17 00:00 Glucagon (Glucagon Inj) 1 mg UD PRN SQ 10/04/17 00:00 11/03/17 00:00 Carbohydrates (Carbohydrates For Hypoglycemia) 15-30 GRAMS 15 grams if BSG 54-69... UD PRN PO 10/04/17 00:00 11/03/17 00:00 Senna (Senokot Tab) 8.6 mg QAM PO 10/05/17 09:00 11/04/17 08:59 10/10/17 07:47 8.6 MG Metoprolol Tartrate (Lopressor Tab) 25 mg BID PO 10/05/17 21:00 11/04/17 20:59 10/10/17 07:47 25 MG Insulin Glargine (Lantus Solostar Pen) 15 units QPM SC 10/05/17 21:00 11/03/17 20:59 10/09/17 21:02 15 UNITS Morphine Sulfate (MoRPHine SULFATE INJ) 2 mg Q4H PRN IV 10/08/17 19:00 10/17/17 22:29 10/10/17 11:57 2 MG Furosemide (Lasix Tab) 80 mg QAM PO 10/11/17 09:00 11/10/17 08:59 Morphine Sulfate (MoRPHine SULFATE INJ) 3 mg ONE PRN IV 10/10/17 10:30 Objective Vital Signs Date Time Temp Pulse Resp B/P (MAP) Pulse Ox O2 Delivery O2 Flow Rate FiO2 10/10/17 16:18 98 Room Air 10/10/17 14:57 37.0 59 16 110/65 (80) 98 Room Air 10/10/17 11:13 36.3 59 18 110/65 (80) 98 Room Air 10/10/17 08:00 Room Air 10/10/17 07:22 36.6 61 20 131/75 (93) 99 Room Air 10/10/17 04:31 36.7 60 18 123/73 (90) 97 Room Air 10/10/17 00:55 99 Room Air 10/09/17 22:57 36.8 59 18 120/74 (89) 98 Room Air 10/09/17 21:00 60 133/68 (89) 10/09/17 19:12 36.5 60 18 126/75 (92) 99 Room Air Physical Exam General Appearance: WD/WN, no apparent distress Eyes: PERRL, EOMI, + pertinent finding (scleral icterus) ENT: hearing grossly normal Neck: no carotid bruits, trachea midline Respiratory/Chest: lungs clear, normal breath sounds, no respiratory distress, no accessory muscle use Cardiovascular: regular rate, rhythm, no murmur Abdomen: normal bowel sounds, non tender, soft, no organomegaly, + distended, + pertinent finding (Severe scrotal swelling) Extremities: + pertinent finding (L AK amputation RLE with significant 2+ edema toes to knee) Neurologic/Psychiatric: alert, oriented x 3 Skin: + jaundice Laboratory Results Last Resulted 10/10/17 07:40 Red Blood Count 4.60, Mean Corpuscular Volume 85.7, Mean Corpuscular Hemoglobin 28.5, Mean Corpuscular Hemoglobin Concent 33.2, Mean Platelet Volume 10.5, Neutrophils (%) (Auto) 81.4, Lymphocytes (%) (Auto) 8.3, Monocytes (%) (Auto) 8.3, Eosinophils (%) (Auto) 1.3, Basophils (%) (Auto) 0.2, Neutrophils # (Auto) 9.22, Lymphocytes # (Auto) 0.94, Monocytes # (Auto) 0.94, Eosinophils # (Auto) 0.15, Basophils # (Auto) 0.02 Last Resulted 10/10/17 07:40 Assessment and Plan Mr. Juan is a 81 yo M with PMH of chronic diastolic CHF, CKD III, T2DM, HTN, HLD, A-fib, BPH, anemia and left AK amputation who presented with RLE pain, swelling, and generalized weakness admitted for RLE cellulitis and sepsis POA. Sepsis POA in setting of RLE Cellulitis, Leukocytosis, Elevated Lactate - XR Foot, Tib/FIB, negative - day 7 of abx -> transitioned to levaquin 750 mg daily (from Rocephin, from zosyn and vancomycin--concern for worsening transaminitis) - blood cultures negative - WCC improved from admission but now rising - today up to 11.3 - Elevate leg, wrap in ZULY bandage to help relieve edema. Right leg edema (left leg BKA) - Improving - elevate leg, wrap - c/o pain in leg likely from leg edema. THOMAS - likely secondary to sepsis and dehydration/hypoperfusion - Downtrending/stable - 2.58 today, improved from admission creatinine of 4.1 ( baseline 1.5-2.4) - Discontinue maintenance IVF in setting of RLE edema - Resume lasix at 80 mg daily. Will continue to monitor lab values Elevated LFTs with jaundice - Bili and alk phos continuing to rise. - biliary US WNL - may be ?partly due to treatment w/zosyn - switched to rocephin--continued to rise, switched to levaquin - GI following, appreciate recs Chronic Diastolic CHF, Afib s/p pacemaker, HTN - last echo Apr 2016 showed normal EF - Held spironolactone given THOMAS & infection. Resumed lasix at 80mgs. Should help with scrotal swelling. - not on anticoagulation given h/o GI hemorrhage - continue home dose of metoprolol tartrate 25mg BID - Monitor volume status, i/o, daily weight Scrotal edema - likely from fluid overload - increase lasix to home dose of 80mgs Thrombocytopenia - platelets stable at 135, no evidence of bleeding - seems to be around baseline, however no mention of thrombocytopenia in prior hospital notes - outpatient f/u Venous stasis ulcer - likely entry point leading to cellulitis - wound care consulted T2DM - ISS - continue Lantus 15 units sq qpm - may benefit from switch to Lantus as opposed to NPH on d/c - HbA1c 6.6% HLD - Continue Statin GERD - Continue home Zantac Code: Full DVT Prophylaxis: Heparin 5000 q12h FEN: no IVF, heart healthy Diabetic diet Disposition: Remains on med/surg. - PT/OT eval given he will likely require rehab (?[facility]) on d/c Resident Tracking Resident Involvement: Resident Care Provided Care Provided: Adult Hospital Medicine Reviewed: Pt Seen/Exam by Me History leg pain improving Constitutional: denies: fever Respiratory: negative: short of breath Cardiovascular: denies chest pain General Appearance: no apparent distress Respiratory: lungs clear, no respiratory distress Cardiovascular: regular rate, rhythm Extremities: other (right leg in sleeve. ) Neurologic/Psychiatric: alert, oriented x 3 Skin Characteristics: warm/dry Assessment/Plan Resident Physician Supervision Note: I independently interviewed and examined the patient and verified the guallpa history and physical, reviewed labs and image studies, discussed the case with the resident Dr. Reno and agree with the findings and care plan.
[2017-10-10] MEDS: INSULIN GLARGINE SOLOSTAR 100 UNITS/ML 3 ML PEN SC SCH (20:47)
[2017-10-10] MEDS: SIMVASTATIN 40 MG TAB PO SCH (21:28)
[2017-10-11] VITALS (7 sets, daily range): BP systolic 122–151; BP diastolic 66–78; PULSE 59–61; TEMP 36.7–37; O2SAT 94–97
[2017-10-11 06:00] LABS: HEMATOCRIT 36.9 % (42-52); HEMOGLOBIN 12.5 g/dL (14.0-18.0); MEAN CELL VOLUME 84.8 fL (80-100); MEAN CORPUSCULAR HEMOGLOBIN 28.7 pg (25-34); MEAN CORPUSCULAR HGB CONC 33.9 g/dl (32-36); MEAN PLATELET VOLUME 10.4 fL (7.4-10.4); PLATELET COUNT 157 K/uL (130-400); RED CELL DISTRIBUTION WIDTH CV 16.1 % (11.5-14.5); RED CELL DISTRIBUTION WIDTH SD 48.3 fL (36.4-46.3); WHITE BLOOD COUNT 12.96 K/uL (4.8-10.8)
[2017-10-11 06:37] LABS: ALBUMIN 1.9 gm/dl (3.4-5.0); CALCIUM 8.9 mg/dl (8.5-10.1); CREATININE 2.51 mg/dl (0.60-1.40); POTASSIUM 4.2 mmol/L (3.5-5.1); TOTAL PROTEIN 7.2 gm/dl (6.4-8.2)
[2017-10-11] MEDS: ACETAMINOPHEN 500 MG TAB PO SCH (08:54)
[2017-10-11] MEDS: ASPIRIN 81 MG ECTAB PO SCH (08:55)
[2017-10-11] MEDS: SENNA 8.6 MG TAB PO SCH (08:56)
[2017-10-11] MEDS: FUROSEMIDE 80 MG TAB PO SCH (08:56)
[2017-10-11] MEDS: HEPARIN SOD 5000 UNIT/0.5 ML CARP SQ SCH ×2 (09:07→21:25)
[2017-10-11] MEDS: INSULIN ASPART 100 UNITS/ML 3 ML PEN SC SCH ×4 (09:08→21:00)
[2017-10-11] MEDS: RANITIDINE HCL 150 MG TAB PO SCH ×2 (09:14→21:22)
[2017-10-11] MEDS: METOPROLOL TARTRATE 25 MG TAB PO SCH ×2 (09:15→21:22)
--- NOTE | 2017-10-11 09:54 | Gastroenterology Progress Note ---
Progress Note Date of Service: Oct 11, 2017 Subjective Pt evaluation today including: conversation w/ patient, chart review, lab review, review of inpatient medication list Mr. Juan offers minimal history this morning as he is drowsy although he does report continued leg pains. No abdominal pain, pruritus or acholic stools. TB is now trending down off antibiotic therapy from 7.3 to 6.7. Review of Systems Constitutional: + fatigue Abdomen: + see HPI Musculoskeletal: + see HPI Medications Current Inpatient Medications Medications (Trade) Dose Ordered Sig/Melvin Route Start Time Stop Time Status Last Admin Dose Admin Heparin Sodium (Porcine) (Heparin Sq 5000 Unit/0.5ml) 5,000 unit Q12 SQ 10/03/17 23:00 11/02/17 22:59 10/11/17 09:07 5,000 UNIT Acetaminophen (Tylenol Tab) 650 mg Q4H PRN PO 10/03/17 20:30 11/02/17 20:29 10/05/17 14:19 650 MG Al Hydrox/Mg Hydrox/Simethicone (Maalox Max Susp) 15 ml Q4H PRN PO 10/03/17 20:30 11/02/17 20:29 Magnesium Hydroxide (Milk Of Magnesia Susp) 30 ml Q12H PRN PO 10/03/17 20:30 11/02/17 20:29 10/08/17 17:13 30 ML Ondansetron HCl (Zofran Inj) 4 mg Q6H PRN IV 10/03/17 20:30 11/02/17 20:29 Polyethylene (Miralax Powder Packet) 17 gm DAILY PRN PO 10/03/17 20:30 11/02/17 20:29 Acetaminophen (Tylenol Tab) 1,000 mg QAM PO 10/04/17 09:00 11/03/17 08:59 10/11/17 08:54 1,000 MG Aspirin (Ecotrin Tab) 81 mg DAILY PO 10/04/17 09:00 11/03/17 08:59 10/11/17 08:55 81 MG Ranitidine HCl (zANTac TAB) 150 mg BID PO 10/03/17 21:00 11/02/17 20:59 10/11/17 09:14 150 MG Simvastatin (Zocor Tab) 40 mg QPM PO 10/03/17 21:00 11/02/17 20:59 10/10/17 21:28 40 MG Insulin Aspart (novoLOG ASPART) SLIDING SCALE If C... ACHS SC 10/04/17 06:30 11/03/17 06:29 10/11/17 09:08 5 UNITS Glucose (Glucose 40% Gel) 15-30 GRAMS 15 GRAMS... UD PRN PO 10/04/17 00:00 11/03/17 00:00 Glucose (Glucose Chew Tab) 4-8 Tablets 4 Tabl... UD PRN PO 10/04/17 00:00 11/03/17 00:00 Dextrose (Dextrose 50% 50ML Syringe) 25-50ML 25ML FOR ... UD PRN IV 10/04/17 00:00 11/03/17 00:00 Glucagon (Glucagon Inj) 1 mg UD PRN SQ 10/04/17 00:00 11/03/17 00:00 Carbohydrates (Carbohydrates For Hypoglycemia) 15-30 GRAMS 15 grams if BSG 54-69... UD PRN PO 10/04/17 00:00 11/03/17 00:00 Senna (Senokot Tab) 8.6 mg QAM PO 10/05/17 09:00 11/04/17 08:59 10/11/17 08:56 8.6 MG Metoprolol Tartrate (Lopressor Tab) 25 mg BID PO 10/05/17 21:00 11/04/17 20:59 10/11/17 09:15 25 MG Insulin Glargine (Lantus Solostar Pen) 15 units QPM SC 10/05/17 21:00 11/03/17 20:59 10/10/17 20:47 15 UNITS Morphine Sulfate (MoRPHine SULFATE INJ) 2 mg Q4H PRN IV 10/08/17 19:00 10/17/17 22:29 10/10/17 22:24 2 MG Furosemide (Lasix Tab) 80 mg QAM PO 10/11/17 09:00 11/10/17 08:59 10/11/17 08:56 80 MG Morphine Sulfate (MoRPHine SULFATE INJ) 3 mg ONE PRN IV 10/10/17 10:30 Levofloxacin (Levaquin Tab) 750 mg Q2D@11 PO 10/11/17 11:00 10/21/17 10:59 Objective Vital Signs Date Time Temp Pulse Resp B/P (MAP) Pulse Ox O2 Delivery O2 Flow Rate FiO2 10/11/17 08:09 97 Room Air 10/11/17 07:41 37.0 59 20 128/73 (91) 97 Room Air 10/11/17 04:07 37.0 59 20 147/68 (94) 97 Room Air 10/11/17 00:10 Room Air 10/10/17 23:11 36.4 60 20 126/73 (90) 97 Room Air 10/10/17 20:43 60 10/10/17 19:23 36.2 55 18 110/65 (80) 98 Room Air 10/10/17 16:18 98 Room Air 10/10/17 14:57 37.0 59 16 110/65 (80) 98 Room Air 10/10/17 11:13 36.3 59 18 110/65 (80) 98 Room Air Physical Exam General Appearance: no apparent distress Respiratory/Chest: lungs clear Cardiovascular: regular rate, rhythm Abdomen: normal bowel sounds, non tender, soft Neurologic/Psych: + pertinent finding (drowsy) Skin: + jaundice Laboratory Results Last 24 Hours Test 10/10/17 11:28 10/10/17 16:25 10/10/17 20:32 10/11/17 05:38 Bedside Glucose 179 mg/dl 134 mg/dl 199 mg/dl White Blood Count 12.96 K/uL Red Blood Count 4.35 M/uL Hemoglobin 12.5 g/dL Hematocrit 36.9 % Mean Corpuscular Volume 84.8 fL Mean Corpuscular Hemoglobin 28.7 pg Mean Corpuscular Hemoglobin Concent 33.9 g/dl RDW Standard Deviation 48.3 fL RDW Coefficient of Variation 16.1 % Platelet Count 157 K/uL Mean Platelet Volume 10.4 fL Sodium Level 133 mmol/L Potassium Level 4.2 mmol/L Chloride Level 101 mmol/L Carbon Dioxide Level 22 mmol/L Anion Gap 10.0 mmol/L Blood Urea Nitrogen 73 mg/dl Creatinine 2.51 mg/dl Est Creatinine Clear Calc Drug Dose 29.4 ml/min Estimated GFR () 27.0 Estimated GFR (Non- 23.3 BUN/Creatinine Ratio 28.9 Random Glucose 135 mg/dl Calcium Level 8.9 mg/dl Total Bilirubin 6.7 mg/dl Aspartate Amino Transf (AST/SGOT) 90 U/L Alanine Aminotransferase (ALT/SGPT) 41 U/L Alkaline Phosphatase 857 U/L Total Protein 7.2 gm/dl Albumin 1.9 gm/dl Globulin 5.3 gm/dl Albumin/Globulin Ratio 0.4 Test 10/11/17 07:42 Bedside Glucose 135 mg/dl Assessment and Plan Patient is a 81 year old male admitted with cellulitis and weakness with elevated total bilirubin and alkaline phosphatase in the setting of acute infection and IV antibiotic use. 1. Continue to trend liver panel off antibiotic therapy. 2. Total bilirubin is trending down. 3. Supportive medical care. Agree with BELINDA Dvais as above Abd: Soft, NT, ND, +BS Continue current therapy Advance diet as tolerated
[2017-10-11] MEDS: MoRPHine SULFATE 2 MG/ML CARP IV PRN ×3 (10:13→21:20)
[2017-10-11] MEDS: LEVOFLOXACIN 750 MG TAB PO SCH (10:45)
[2017-10-11] MEDS ORDERED: LEVOFLOXACIN 750 MG TAB PO SCH (11:00)
--- NOTE | 2017-10-11 15:12 | Family Medicine Progress Note ---
Progress Note Date of Service Oct 11, 2017. Subjective Pt evaluation today including: conversation w/ patient, physical exam, lab review Pain: moderate RLE pain but improving PO Intake: Tolerating well Voiding: no voiding problems Patient continues to improve. Still complains of RLE pain and scrotal swelling. Constitutional: No fever, No chills Respiratory: No cough Cardiovascular: No chest pain Abdomen: No pain, No nausea, No vomiting, No diarrhea Musculoskeletal: + swelling Skin: + color change All Other Systems: Reviewed and Negative Medications Current Inpatient Medications Medications (Trade) Dose Ordered Sig/Melvin Route Start Time Stop Time Status Last Admin Dose Admin Heparin Sodium (Porcine) (Heparin Sq 5000 Unit/0.5ml) 5,000 unit Q12 SQ 10/03/17 23:00 11/02/17 22:59 10/11/17 09:07 5,000 UNIT Acetaminophen (Tylenol Tab) 650 mg Q4H PRN PO 10/03/17 20:30 11/02/17 20:29 10/05/17 14:19 650 MG Al Hydrox/Mg Hydrox/Simethicone (Maalox Max Susp) 15 ml Q4H PRN PO 10/03/17 20:30 11/02/17 20:29 Magnesium Hydroxide (Milk Of Magnesia Susp) 30 ml Q12H PRN PO 10/03/17 20:30 11/02/17 20:29 10/08/17 17:13 30 ML Ondansetron HCl (Zofran Inj) 4 mg Q6H PRN IV 10/03/17 20:30 11/02/17 20:29 Polyethylene (Miralax Powder Packet) 17 gm DAILY PRN PO 10/03/17 20:30 11/02/17 20:29 Acetaminophen (Tylenol Tab) 1,000 mg QAM PO 10/04/17 09:00 11/03/17 08:59 10/11/17 08:54 1,000 MG Aspirin (Ecotrin Tab) 81 mg DAILY PO 10/04/17 09:00 11/03/17 08:59 10/11/17 08:55 81 MG Ranitidine HCl (zANTac TAB) 150 mg BID PO 10/03/17 21:00 11/02/17 20:59 10/11/17 09:14 150 MG Simvastatin (Zocor Tab) 40 mg QPM PO 10/03/17 21:00 11/02/17 20:59 10/10/17 21:28 40 MG Insulin Aspart (novoLOG ASPART) SLIDING SCALE If C... ACHS SC 10/04/17 06:30 11/03/17 06:29 10/11/17 12:29 5 UNITS Glucose (Glucose 40% Gel) 15-30 GRAMS 15 GRAMS... UD PRN PO 10/04/17 00:00 11/03/17 00:00 Glucose (Glucose Chew Tab) 4-8 Tablets 4 Tabl... UD PRN PO 10/04/17 00:00 11/03/17 00:00 Dextrose (Dextrose 50% 50ML Syringe) 25-50ML 25ML FOR ... UD PRN IV 10/04/17 00:00 11/03/17 00:00 Glucagon (Glucagon Inj) 1 mg UD PRN SQ 10/04/17 00:00 11/03/17 00:00 Carbohydrates (Carbohydrates For Hypoglycemia) 15-30 GRAMS 15 grams if BSG 54-69... UD PRN PO 10/04/17 00:00 11/03/17 00:00 Senna (Senokot Tab) 8.6 mg QAM PO 10/05/17 09:00 11/04/17 08:59 10/11/17 08:56 8.6 MG Metoprolol Tartrate (Lopressor Tab) 25 mg BID PO 10/05/17 21:00 11/04/17 20:59 10/11/17 09:15 25 MG Insulin Glargine (Lantus Solostar Pen) 15 units QPM SC 10/05/17 21:00 11/03/17 20:59 10/10/17 20:47 15 UNITS Morphine Sulfate (MoRPHine SULFATE INJ) 2 mg Q4H PRN IV 10/08/17 19:00 10/17/17 22:29 10/11/17 14:31 2 MG Furosemide (Lasix Tab) 80 mg QAM PO 10/11/17 09:00 11/10/17 08:59 10/11/17 08:56 80 MG Morphine Sulfate (MoRPHine SULFATE INJ) 3 mg ONE PRN IV 10/10/17 10:30 Levofloxacin (Levaquin Tab) 750 mg Q2D@11 PO 10/11/17 11:00 10/21/17 10:59 10/11/17 10:45 750 MG Objective Vital Signs Date Time Temp Pulse Resp B/P (MAP) Pulse Ox O2 Delivery O2 Flow Rate FiO2 10/11/17 11:27 36.7 60 20 151/78 (102) 95 10/11/17 08:09 97 Room Air 10/11/17 07:41 37.0 59 20 128/73 (91) 97 Room Air 10/11/17 04:07 37.0 59 20 147/68 (94) 97 Room Air 10/11/17 00:10 Room Air 10/10/17 23:11 36.4 60 20 126/73 (90) 97 Room Air 10/10/17 20:43 60 10/10/17 19:23 36.2 55 18 110/65 (80) 98 Room Air 10/10/17 16:18 98 Room Air Physical Exam General Appearance: WD/WN, no apparent distress Eyes: PERRL, EOMI, + abnormal sclerae exam (icterus) ENT: hearing grossly normal Neck: no carotid bruits, trachea midline Respiratory/Chest: lungs clear, normal breath sounds, no respiratory distress, no accessory muscle use Cardiovascular: regular rate, rhythm, no murmur Abdomen: non tender, soft, + distended Extremities: + calf tenderness (improving tenderness 2/2 edema/cellulitis), + pedal edema (RLE), + swelling Neurologic/Psychiatric: alert, normal mood/affect, oriented x 3 Skin: no rash, + jaundice Laboratory Results Last Resulted 10/11/17 05:38 Last Resulted 10/11/17 05:38 Assessment and Plan Mr. Juan is a 81 yo M with PMH of chronic diastolic CHF, CKD III, T2DM, HTN, HLD, A-fib, BPH, anemia and left AK amputation who presented with RLE pain, swelling, and generalized weakness admitted for RLE cellulitis and sepsis POA. Sepsis POA in setting of RLE Cellulitis, Leukocytosis, Elevated Lactate - XR Foot, Tib/FIB, negative - Antibiotics-> transitioned to levaquin 750 mg every other day (from Rocephin, from zosyn and vancomycin--concern for worsening transaminitis) - blood cultures negative - WCC improved from admission but now rising - today up to 12.96 - Elevate leg, wrap in ZULY bandage to help relieve edema. Right leg edema (left leg BKA) - Improving - elevate leg, wrap - c/o pain in leg likely from leg edema. - Trying to minimize exposure to opioids unless severe pain THOMAS - likely secondary to sepsis and dehydration/hypoperfusion - Downtrending/stable - 2.51 today, improved from admission creatinine of 4.1 ( baseline 1.5-2.4) - Discontinued maintenance IVF in setting of RLE edema and scrotal swelling - lasix at 80 mg daily. Will continue to monitor lab values Elevated LFTs with jaundice - Bili decreased to 6.8 from 7.3 yesterday - Alk phos continuing to rise. - biliary US WNL - may be ?partly due to treatment w/zosyn - switched to rocephin--continued to rise, switched to levaquin - GI following, appreciate recs Chronic Diastolic CHF, Afib s/p pacemaker, HTN - last echo Apr 2016 showed normal EF - Held spironolactone given THOMAS & infection. Resumed lasix at 80mgs. Should help with scrotal swelling. - not on anticoagulation given h/o GI hemorrhage - continue home dose of metoprolol tartrate 25mg BID - Monitor volume status, i/o, daily weight Scrotal edema - likely from fluid overload - back on home dose lasix 80mgs Thrombocytopenia - platelets stable at 157, no evidence of bleeding - seems to be around baseline, however no mention of thrombocytopenia in prior hospital notes - outpatient f/u Venous stasis ulcer - likely entry point leading to cellulitis - wound care consulted T2DM - ISS - continue Lantus 15 units sq qpm - may benefit from switch to Lantus as opposed to NPH on d/c - HbA1c 6.6% HLD - Continue Statin GERD - Continue home Zantac Code: Full DVT Prophylaxis: Heparin 5000 q12h FEN: no IVF, heart healthy Diabetic diet Disposition: Remains on med/surg. - PT/OT participation required, given he will likely require rehab (?[facility]) on d/c Resident Tracking Resident Involvement: Resident Care Provided Care Provided: Adult Hospital Medicine Reviewed: Pt Seen/Exam by Me History more alert today. pain better controlled. did participate some with PT Constitutional: denies: fever Respiratory: negative: short of breath Cardiovascular: denies chest pain General Appearance: no apparent distress Respiratory: lungs clear, no respiratory distress Cardiovascular: regular rate, rhythm Extremities: other (right leg with sleeve. edema +, left leg bka. ) Neurologic/Psychiatric: alert, oriented x 3 Skin Characteristics: warm/dry, jaundice Assessment/Plan Resident Physician Supervision Note: I independently interviewed and examined the patient and verified the guallpa history and physical, reviewed labs and image studies, discussed the case with the resident Dr. Reno and agree with the findings and care plan.
[2017-10-11] MEDS ORDERED: FUROSEMIDE INJ 20 MG in SYRINGE 0 ML IV ONE (21:15)
[2017-10-11] MEDS ORDERED: NURSING VERBAL MED ORDER ONE (21:15)
[2017-10-11] MEDS: SIMVASTATIN 40 MG TAB PO SCH (21:22)
[2017-10-11] MEDS: INSULIN GLARGINE SOLOSTAR 100 UNITS/ML 3 ML PEN SC SCH (21:25)
[2017-10-12] MEDS: MoRPHine SULFATE 2 MG/ML CARP IV PRN ×4 (01:34→23:34)
[2017-10-12 03:55] VITALS: BP 132/71; PULSE 60; TEMP 37.2; O2SAT 95
[2017-10-12 06:14] LABS: HEMATOCRIT 37.7 % (42-52); HEMOGLOBIN 12.8 g/dL (14.0-18.0); MEAN CELL VOLUME 84.3 fL (80-100); MEAN CORPUSCULAR HEMOGLOBIN 28.6 pg (25-34); MEAN PLATELET VOLUME 9.9 fL (7.4-10.4); PLATELET COUNT 159 K/uL (130-400); RED CELL DISTRIBUTION WIDTH CV 16.4 % (11.5-14.5); RED CELL DISTRIBUTION WIDTH SD 48.5 fL (36.4-46.3); WHITE BLOOD COUNT 11.28 K/uL (4.8-10.8)
[2017-10-12 06:53] LABS: ALBUMIN 1.9 gm/dl (3.4-5.0); CALCIUM 8.7 mg/dl (8.5-10.1); CREATININE 2.59 mg/dl (0.60-1.40); POTASSIUM 4.1 mmol/L (3.5-5.1)
[2017-10-12 07:30] VITALS: BP 133/65; PULSE 60; TEMP 37; O2SAT 97
--- NOTE | 2017-10-12 08:10 | Family Medicine Progress Note ---
Progress Note Date of Service Oct 12, 2017. Subjective Pt evaluation today including: conversation w/ patient Found patient resting comfortably in bed. He denies any particular complaints, but says when asked that his right lower extremity and scrotum still feels sore. Otherwise he denies any acute concerns. Constitutional: No fever, No chills Respiratory: No cough, No shortness of breath Cardiovascular: + edema, No chest pain Abdomen: No pain, No nausea, No vomiting, No diarrhea Skin: + see HPI Medications Current Inpatient Medications Medications (Trade) Dose Ordered Sig/Melvin Route Start Time Stop Time Status Last Admin Dose Admin Heparin Sodium (Porcine) (Heparin Sq 5000 Unit/0.5ml) 5,000 unit Q12 SQ 10/03/17 23:00 11/02/17 22:59 10/11/17 21:25 5,000 UNIT Acetaminophen (Tylenol Tab) 650 mg Q4H PRN PO 10/03/17 20:30 11/02/17 20:29 10/05/17 14:19 650 MG Al Hydrox/Mg Hydrox/Simethicone (Maalox Max Susp) 15 ml Q4H PRN PO 10/03/17 20:30 11/02/17 20:29 Magnesium Hydroxide (Milk Of Magnesia Susp) 30 ml Q12H PRN PO 10/03/17 20:30 11/02/17 20:29 10/08/17 17:13 30 ML Ondansetron HCl (Zofran Inj) 4 mg Q6H PRN IV 10/03/17 20:30 11/02/17 20:29 Polyethylene (Miralax Powder Packet) 17 gm DAILY PRN PO 10/03/17 20:30 11/02/17 20:29 Acetaminophen (Tylenol Tab) 1,000 mg QAM PO 10/04/17 09:00 11/03/17 08:59 10/11/17 08:54 1,000 MG Aspirin (Ecotrin Tab) 81 mg DAILY PO 10/04/17 09:00 11/03/17 08:59 10/11/17 08:55 81 MG Ranitidine HCl (zANTac TAB) 150 mg BID PO 10/03/17 21:00 11/02/17 20:59 10/11/17 21:22 150 MG Simvastatin (Zocor Tab) 40 mg QPM PO 10/03/17 21:00 8/25/18 20:59 10/11/17 21:22 40 MG Insulin Aspart (novoLOG ASPART) SLIDING SCALE If C... ACHS SC 10/04/17 06:30 11/03/17 06:29 10/11/17 12:29 5 UNITS Glucose (Glucose 40% Gel) 15-30 GRAMS 15 GRAMS... UD PRN PO 10/04/17 00:00 11/03/17 00:00 Glucose (Glucose Chew Tab) 4-8 Tablets 4 Tabl... UD PRN PO 10/04/17 00:00 11/03/17 00:00 Dextrose (Dextrose 50% 50ML Syringe) 25-50ML 25ML FOR ... UD PRN IV 10/04/17 00:00 11/03/17 00:00 Glucagon (Glucagon Inj) 1 mg UD PRN SQ 10/04/17 00:00 11/03/17 00:00 Carbohydrates (Carbohydrates For Hypoglycemia) 15-30 GRAMS 15 grams if BSG 54-69... UD PRN PO 10/04/17 00:00 11/03/17 00:00 Senna (Senokot Tab) 8.6 mg QAM PO 10/05/17 09:00 11/04/17 08:59 10/11/17 08:56 8.6 MG Metoprolol Tartrate (Lopressor Tab) 25 mg BID PO 10/05/17 21:00 11/04/17 20:59 10/11/17 21:22 25 MG Insulin Glargine (Lantus Solostar Pen) 15 units QPM SC 10/05/17 21:00 11/03/17 20:59 10/11/17 21:25 15 UNITS Morphine Sulfate (MoRPHine SULFATE INJ) 2 mg Q4H PRN IV 10/08/17 19:00 10/17/17 22:29 10/12/17 01:34 2 MG Furosemide (Lasix Tab) 80 mg QAM PO 10/11/17 09:00 11/10/17 08:59 10/11/17 08:56 80 MG Morphine Sulfate (MoRPHine SULFATE INJ) 3 mg ONE PRN IV 10/10/17 10:30 Levofloxacin (Levaquin Tab) 750 mg Q2D@11 PO 10/11/17 11:00 10/21/17 10:59 10/11/17 10:45 750 MG Objective Vital Signs Date Time Temp Pulse Resp B/P (MAP) Pulse Ox O2 Delivery O2 Flow Rate FiO2 10/12/17 07:30 37.0 60 20 133/65 (87) 97 10/12/17 03:55 37.2 60 22 132/71 (91) 95 Room Air 10/12/17 00:00 Room Air 10/11/17 23:41 36.9 61 20 126/66 (86) 94 Room Air 10/11/17 20:45 Room Air 10/11/17 20:00 36.7 61 20 122/67 (85) 96 Room Air 10/11/17 16:00 Room Air 10/11/17 15:37 36.8 59 20 129/71 (90) 95 10/11/17 11:27 36.7 60 20 151/78 (102) 95 Physical Exam Notes: General Appearance: Awake, alert & oriented, comfortable in general when not moving his right leg, NAD. CV: +S1S2 RRR, no murmur. Pulm: Clear to auscultation throughout. Abdomen: +BS, soft, non-tender, mild distention. Extremities: Mild jaundice. There is some right calf erythema consistent with right lower extremity cellulitis within previously-drawn skin lines. The right calf is notably tender primarily with movement. There is an overlying compression stocking. Left leg above the knee amputation. Neuro: No gross neuro deficits. Laboratory Results 10/12/17 05:41 10/12/17 05:41 Test 10/12/17 05:41 10/12/17 07:42 Red Blood Count 4.47 M/uL (4.7-6.1) Mean Corpuscular Volume 84.3 fL (80-100) Mean Corpuscular Hemoglobin 28.6 pg (25-34) Mean Corpuscular Hemoglobin Concent 34.0 g/dl (32-36) RDW Standard Deviation 48.5 fL (36.4-46.3) RDW Coefficient of Variation 16.4 % (11.5-14.5) Mean Platelet Volume 9.9 fL (7.4-10.4) Anion Gap 11.0 mmol/L (3-11) Est Creatinine Clear Calc Drug Dose 27.4 ml/min Estimated GFR () 26.0 Estimated GFR (Non- 22.4 BUN/Creatinine Ratio 28.3 (10-20) Calcium Level 8.7 mg/dl (8.5-10.1) Total Bilirubin 6.2 mg/dl (0.2-1) Aspartate Amino Transf (AST/SGOT) 85 U/L (15-37) Alanine Aminotransferase (ALT/SGPT) 39 U/L (12-78) Alkaline Phosphatase 809 U/L (45-117) Total Protein 7.0 gm/dl (6.4-8.2) Albumin 1.9 gm/dl (3.4-5.0) Globulin 5.1 gm/dl (2.5-4.0) Albumin/Globulin Ratio 0.4 (0.9-2) Bedside Glucose 124 mg/dl (70-99) Assessment and Plan 81-year-old male was admitted on 03 October 2017 for generalized weakness and right lower extremity cellulitis. PMH: Hypertension, hyperlipidemia, atrial fibrillation, type 2 diabetes, chronic diastolic CHF, CKD stage III, BPH, anemia, GI bleed, left above-the- knee amputation. Sepsis in the setting of right lower extremity cellulitis: Elevated lactate since trended downwards. Started initially on Zosyn and vancomycin, then Rocephin, then now levaquin due to concerns for transaminitis. Blood cultures negative. Right lower extremity cellulitis, edema, and venous stasis ulcer: Latter is likely source of his cellulitis. 11 October began on Levaquin 750 mg IV every other day. Compression stocking on leg for edema. No evidence of DVT on lower extremity ultrasound. Patient had over a liter of fluid output yesterday. - Continuing to diurese. - Wound care consulted for ulcer. - Trying to minimize exposure to opioids unless severe pain Scrotal edema: Likely due to fluid overload. On IV Lasix, monitoring. Acute kidney injury in setting of chronic kidney disease stage III: Likely secondary to third spacing and sepsis. Admit creatinine of 4.1 (with baseline perhaps around mid-2's). Has since hovered around Cr 2.5-2.6. Continue Lasix diuresis. Monitoring. Transaminitis with jaundice: Total bilirubin peaked at 7.3, since improving. GI consulted, see related notes. Elevation likely related to previous antibiotics. Patient is s/p cholecystectomy with a normal CBD on ultrasound. Monitoring. Thrombocytopenia: Admit platelets 93. This has since improved. No evidence of acute bleeding. Monitoring. - Chronic diastolic CHF: Held his home Spironolactone given THOMAS: On Lasix home dose 80mgs. Monitoring daily I's and O's. - Atrial fibrillation: Not at present. On home metoprolol. - Hypertension: On home metoprolol. - Hyperlipidemia: Continue home simvastatin. - Type 2 diabetes: On Lantus 15 units every afternoon as well as insulin sliding scale. Hemoglobin A1c was 6.6. - GERD: Continue home Zantac. Code status: Full code Diet: Renal, diabetes type 2. DVT prophy: Heparin every 12 hours. PT/OT: Ongoing. Disbo: Admit to [facility]. PT and OT evaluations are ongoing. Planned transfer to [facility] likely after some improvement in his overall fluid status. Resident Tracking Resident Involvement: Resident Care Provided Care Provided: Adult Hospital Medicine (inpatient) Reviewed: Pt Seen/Exam by Me History leg pain controlled Constitutional: denies: fever Respiratory: negative: short of breath Cardiovascular: denies chest pain General Appearance: no apparent distress Respiratory: lungs clear (anterior), no respiratory distress Cardiovascular: regular rate, rhythm Extremities: other (right leg with sleeve. venous stasis changes +) Neurologic/Psychiatric: alert, oriented x 3 Assessment/Plan Resident Physician Supervision Note: I independently interviewed and examined the patient and verified the guallpa history and physical, reviewed labs and image studies, discussed the case with the resident Dr. Gallo and agree with the findings and care plan.
[2017-10-12] MEDS: RANITIDINE HCL 150 MG TAB PO SCH ×2 (09:18→21:56)
[2017-10-12] MEDS: FUROSEMIDE 80 MG TAB PO SCH (09:19)
[2017-10-12] MEDS: ASPIRIN 81 MG ECTAB PO SCH (09:19)
[2017-10-12] MEDS: ACETAMINOPHEN 500 MG TAB PO SCH (09:20)
[2017-10-12] MEDS: SENNA 8.6 MG TAB PO SCH (09:20)
[2017-10-12] MEDS: METOPROLOL TARTRATE 25 MG TAB PO SCH ×2 (09:20→21:57)
[2017-10-12] MEDS: INSULIN ASPART 100 UNITS/ML 3 ML PEN SC SCH ×4 (09:26→21:55)
[2017-10-12] MEDS: HEPARIN SOD 5000 UNIT/0.5 ML CARP SQ SCH ×2 (09:27→21:55)
[2017-10-12 11:41] VITALS: BP 120/69; PULSE 62; TEMP 36.7; O2SAT 96
[2017-10-12 14:54] VITALS: BP 116/67; PULSE 61; TEMP 36.9; O2SAT 95
[2017-10-12 20:30] VITALS: BP 137/67; PULSE 60; TEMP 36.8; O2SAT 96
[2017-10-12] MEDS: SIMVASTATIN 40 MG TAB PO SCH (21:56)
[2017-10-12] MEDS: INSULIN GLARGINE SOLOSTAR 100 UNITS/ML 3 ML PEN SC SCH (21:56)
[2017-10-12 23:38] VITALS: BP 133/68; PULSE 65; TEMP 36.6; O2SAT 96
[2017-10-13 02:57] VITALS: BP 115/68; PULSE 59; TEMP 36.7; O2SAT 95
[2017-10-13 06:44] LABS: BASO % 0.1 %; BASO ABS # 0.01 K/uL (0-0.2); EOS % 1.4 %; EOS ABS # 0.16 K/uL (0-0.5); HEMATOCRIT 36.4 % (42-52); HEMOGLOBIN 12.3 g/dL (14.0-18.0); IG# 0.06 K/uL (0.00-0.02); LYMPH % 10.3 %; LYMPH ABS # 1.16 K/uL (1.2-3.4); MEAN CELL VOLUME 83.9 fL (80-100); MEAN CORPUSCULAR HEMOGLOBIN 28.3 pg (25-34); MEAN CORPUSCULAR HGB CONC 33.8 g/dl (32-36); MEAN PLATELET VOLUME 10.6 fL (7.4-10.4); MONO % 11.3 %; MONO ABS # 1.27 K/uL (0.11-0.59); NEUT % 76.4 %; NEUT ABS # 8.55 K/uL (1.4-6.5); PLATELET COUNT 172 K/uL (130-400); RED CELL DISTRIBUTION WIDTH CV 16.4 % (11.5-14.5); RED CELL DISTRIBUTION WIDTH SD 48.3 fL (36.4-46.3); WHITE BLOOD COUNT 11.21 K/uL (4.8-10.8)
[2017-10-13 06:59] LABS: ALBUMIN 1.8 gm/dl (3.4-5.0); CALCIUM 8.5 mg/dl (8.5-10.1); CREATININE 2.82 mg/dl (0.60-1.40); POTASSIUM 4.1 mmol/L (3.5-5.1); TOTAL PROTEIN 7.1 gm/dl (6.4-8.2)
[2017-10-13 07:33] VITALS: BP 143/75; PULSE 59; TEMP 37; O2SAT 97
[2017-10-13] MEDS: SENNA 8.6 MG TAB PO SCH (09:02)
[2017-10-13] MEDS: RANITIDINE HCL 150 MG TAB PO SCH ×2 (09:02→21:43)
[2017-10-13] MEDS: FUROSEMIDE 80 MG TAB PO SCH (09:02)
[2017-10-13] MEDS: METOPROLOL TARTRATE 25 MG TAB PO SCH ×2 (09:02→21:43)
[2017-10-13] MEDS: ASPIRIN 81 MG ECTAB PO SCH (09:03)
[2017-10-13] MEDS: ACETAMINOPHEN 500 MG TAB PO SCH (09:03)
[2017-10-13] MEDS: HEPARIN SOD 5000 UNIT/0.5 ML CARP SQ SCH ×2 (09:08→21:43)
[2017-10-13] MEDS: INSULIN ASPART 100 UNITS/ML 3 ML PEN SC SCH ×4 (09:08→21:42)
--- NOTE | 2017-10-13 09:12 | Family Medicine Progress Note ---
Progress Note Date of Service Oct 13, 2017. Subjective Pt evaluation today including: conversation w/ patient Found patient eating his breakfast in bed this morning. He says that his right leg feels improved since yesterday. His scrotum continues to feel swollen but no worse than yesterday. He denies any particular medical concerns. However, he volunteered that he has been thinking more and more recently about living in a long-term care facility. He says his current in-home assistance does not seem to be helping him as much as he wishes. He has looked into some different facilities but is still unsure where he would go. Constitutional: No fever, No chills Respiratory: No cough, No shortness of breath Cardiovascular: + edema, No chest pain Abdomen: No pain, No nausea, No vomiting, No diarrhea Medications Current Inpatient Medications Medications (Trade) Dose Ordered Sig/Melvin Route Start Time Stop Time Status Last Admin Dose Admin Heparin Sodium (Porcine) (Heparin Sq 5000 Unit/0.5ml) 5,000 unit Q12 SQ 10/03/17 23:00 11/02/17 22:59 10/13/17 09:08 5,000 UNIT Acetaminophen (Tylenol Tab) 650 mg Q4H PRN PO 10/03/17 20:30 11/02/17 20:29 10/05/17 14:19 650 MG Al Hydrox/Mg Hydrox/Simethicone (Maalox Max Susp) 15 ml Q4H PRN PO 10/03/17 20:30 11/02/17 20:29 Magnesium Hydroxide (Milk Of Magnesia Susp) 30 ml Q12H PRN PO 10/03/17 20:30 11/02/17 20:29 10/08/17 17:13 30 ML Ondansetron HCl (Zofran Inj) 4 mg Q6H PRN IV 10/03/17 20:30 11/02/17 20:29 Polyethylene (Miralax Powder Packet) 17 gm DAILY PRN PO 10/03/17 20:30 11/02/17 20:29 Acetaminophen (Tylenol Tab) 1,000 mg QAM PO 10/04/17 09:00 11/03/17 08:59 10/13/17 09:03 1,000 MG Aspirin (Ecotrin Tab) 81 mg DAILY PO 10/04/17 09:00 8/26/18 08:59 10/13/17 09:03 81 MG Ranitidine HCl (zANTac TAB) 150 mg BID PO 10/03/17 21:00 11/02/17 20:59 10/13/17 09:02 150 MG Simvastatin (Zocor Tab) 40 mg QPM PO 10/03/17 21:00 11/02/17 20:59 10/12/17 21:56 40 MG Insulin Aspart (novoLOG ASPART) SLIDING SCALE If C... ACHS SC 10/04/17 06:30 11/03/17 06:29 10/13/17 09:08 5 UNITS Glucose (Glucose 40% Gel) 15-30 GRAMS 15 GRAMS... UD PRN PO 10/04/17 00:00 11/03/17 00:00 Glucose (Glucose Chew Tab) 4-8 Tablets 4 Tabl... UD PRN PO 10/04/17 00:00 11/03/17 00:00 Dextrose (Dextrose 50% 50ML Syringe) 25-50ML 25ML FOR ... UD PRN IV 10/04/17 00:00 11/03/17 00:00 Glucagon (Glucagon Inj) 1 mg UD PRN SQ 10/04/17 00:00 11/03/17 00:00 Carbohydrates (Carbohydrates For Hypoglycemia) 15-30 GRAMS 15 grams if BSG 54-69... UD PRN PO 10/04/17 00:00 11/03/17 00:00 Senna (Senokot Tab) 8.6 mg QAM PO 10/05/17 09:00 11/04/17 08:59 10/13/17 09:02 8.6 MG Metoprolol Tartrate (Lopressor Tab) 25 mg BID PO 10/05/17 21:00 11/04/17 20:59 10/13/17 09:02 25 MG Insulin Glargine (Lantus Solostar Pen) 15 units QPM SC 10/05/17 21:00 11/03/17 20:59 10/12/17 21:56 15 UNITS Morphine Sulfate (MoRPHine SULFATE INJ) 2 mg Q4H PRN IV 10/08/17 19:00 10/17/17 22:29 10/12/17 23:34 2 MG Furosemide (Lasix Tab) 80 mg QAM PO 10/11/17 09:00 11/10/17 08:59 10/13/17 09:02 80 MG Morphine Sulfate (MoRPHine SULFATE INJ) 3 mg ONE PRN IV 10/10/17 10:30 Levofloxacin (Levaquin Tab) 750 mg Q2D@11 PO 10/11/17 11:00 10/21/17 10:59 10/11/17 10:45 750 MG Objective Vital Signs Date Time Temp Pulse Resp B/P (MAP) Pulse Ox O2 Delivery O2 Flow Rate FiO2 10/13/17 07:33 37.0 59 20 143/75 (97) 97 10/13/17 02:57 36.7 59 20 115/68 (84) 95 Room Air 10/12/17 23:38 36.6 65 20 133/68 (89) 96 Room Air 10/12/17 20:30 36.8 60 20 137/67 (90) 96 Room Air 10/12/17 20:16 Room Air 10/12/17 16:00 Room Air 10/12/17 14:54 36.9 61 20 116/67 (83) 95 10/12/17 11:41 36.7 62 20 120/69 (86) 96 Physical Exam Notes: General Appearance: Awake, alert & oriented, comfortable in general when not moving his right leg, NAD. CV: +S1S2 RRR, no murmur. Pulm: Clear to auscultation throughout. Abdomen: +BS, soft, non-tender, mild distention. Extremities: Mild jaundice. There is some right calf erythema consistent with right lower extremity cellulitis within previously-drawn skin lines. The right calf is notably tender primarily with movement. There is an overlying compression stocking. Left leg above the knee amputation. Neuro: No gross neuro deficits. Laboratory Results 10/13/17 05:57 Red Blood Count 4.34, Mean Corpuscular Volume 83.9, Mean Corpuscular Hemoglobin 28.3, Mean Corpuscular Hemoglobin Concent 33.8, Mean Platelet Volume 10.6, Neutrophils (%) (Auto) 76.4, Lymphocytes (%) (Auto) 10.3, Monocytes (%) (Auto) 11.3, Eosinophils (%) (Auto) 1.4, Basophils (%) (Auto) 0.1, Neutrophils # (Auto ) 8.55, Lymphocytes # (Auto) 1.16, Monocytes # (Auto) 1.27, Eosinophils # (Auto ) 0.16, Basophils # (Auto) 0.01 10/13/17 05:57 Test 10/13/17 05:57 10/13/17 07:48 White Blood Count 11.21 K/uL (4.8-10.8) Red Blood Count 4.34 M/uL (4.7-6.1) Hemoglobin 12.3 g/dL (14.0-18.0) Hematocrit 36.4 % (42-52) Mean Corpuscular Volume 83.9 fL (80-100) Mean Corpuscular Hemoglobin 28.3 pg (25-34) Mean Corpuscular Hemoglobin Concent 33.8 g/dl (32-36) Platelet Count 172 K/uL (130-400) Mean Platelet Volume 10.6 fL (7.4-10.4) Neutrophils (%) (Auto) 76.4 % Lymphocytes (%) (Auto) 10.3 % Monocytes (%) (Auto) 11.3 % Eosinophils (%) (Auto) 1.4 % Basophils (%) (Auto) 0.1 % Neutrophils # (Auto) 8.55 K/uL (1.4-6.5) Lymphocytes # (Auto) 1.16 K/uL (1.2-3.4) Monocytes # (Auto) 1.27 K/uL (0.11-0.59) Eosinophils # (Auto) 0.16 K/uL (0-0.5) Basophils # (Auto) 0.01 K/uL (0-0.2) RDW Standard Deviation 48.3 fL (36.4-46.3) RDW Coefficient of Variation 16.4 % (11.5-14.5) Immature Granulocyte % (Auto) 0.5 % Immature Granulocyte # (Auto) 0.06 K/uL (0.00-0.02) Anion Gap 9.0 mmol/L (3-11) Est Creatinine Clear Calc Drug Dose 26.1 ml/min Estimated GFR () 23.4 Estimated GFR (Non- 20.2 BUN/Creatinine Ratio 26.4 (10-20) Calcium Level 8.5 mg/dl (8.5-10.1) Total Bilirubin 5.3 mg/dl (0.2-1) Aspartate Amino Transf (AST/SGOT) 104 U/L (15-37) Alanine Aminotransferase (ALT/SGPT) 43 U/L (12-78) Alkaline Phosphatase 884 U/L (45-117) Total Protein 7.1 gm/dl (6.4-8.2) Albumin 1.8 gm/dl (3.4-5.0) Globulin 5.3 gm/dl (2.5-4.0) Albumin/Globulin Ratio 0.3 (0.9-2) Chemistry Specimen Hemolysis Bedside Glucose 111 mg/dl (70-99) Assessment and Plan 81-year-old male was admitted on 03 October 2017 for generalized weakness and right lower extremity cellulitis. PMH: Hypertension, hyperlipidemia, atrial fibrillation, type 2 diabetes, chronic diastolic CHF, CKD stage III, BPH, anemia, GI bleed, left above-the- knee amputation. Sepsis in the setting of right lower extremity cellulitis: Elevated lactate since trended downwards. Started initially on Zosyn and vancomycin, then Rocephin, then now levaquin due to concerns for transaminitis. Blood cultures negative. Right lower extremity cellulitis, edema, and venous stasis ulcer: Latter is likely source of his cellulitis. 11 October began on Levaquin 750 mg IV every other day. Compression stocking on leg for edema. No evidence of DVT on lower extremity ultrasound. Patient has had around two liters UOP in past 48 hours. - Continuing to diurese. - Wound care consulted for ulcer. - Trying to minimize exposure to opioids unless severe pain Scrotal edema: Likely due to fluid overload. On Lasix, monitoring. Acute kidney injury in setting of chronic kidney disease stage III: Likely secondary to third spacing and sepsis. Admit creatinine of 4.1 (with baseline perhaps around mid-2's). Improved to around 2.5, then worsened again to 2.8. Monitoring. Transaminitis with jaundice: Total bilirubin peaked at 7.3, since improving. GI consulted, see related notes. Elevation likely related to previous antibiotics. Patient is s/p cholecystectomy with a normal CBD on ultrasound. Monitoring. Thrombocytopenia: Admit platelets 93. This has since improved. No evidence of acute bleeding. Monitoring. - Chronic diastolic CHF: Held his home Spironolactone given THOMAS: At home is on lasix ? 160 BID. Getting 80mgs once a day here with appropriate response. Unsure of compliance as outpatient. Monitoring daily I's and O's. - Atrial fibrillation: Not at present. On home metoprolol. - Hypertension: On home metoprolol. - Hyperlipidemia: Continue home simvastatin. - Type 2 diabetes: On Lantus 15 units every afternoon as well as insulin sliding scale. Hemoglobin A1c was 6.6. - GERD: Continue home Zantac. Code status: Full code Diet: Renal, diabetes type 2. DVT prophy: Heparin every 12 hours. PT/OT: Ongoing. Disbo: Admit to [facility]. PT and OT evaluations are ongoing. - Planned transfer to [facility] likely after some improvement in his overall fluid status. - Patient voluntarily admits he has been thinking about placement in a long- term care facility after this hospitalization. He is interested in more information about the same. Resident Tracking Resident Involvement: Resident Care Provided Care Provided: Adult Hospital Medicine (inpatient) Reviewed: Pt Seen/Exam by Me History no new concerns. Constitutional: denies: fever Respiratory: negative: short of breath Cardiovascular: denies chest pain General Appearance: no apparent distress Respiratory: lungs clear, no respiratory distress Cardiovascular: regular rate, rhythm Extremities: other (right leg edema ? at baseline. ) Neurologic/Psychiatric: alert, oriented x 3 Skin Characteristics: warm/dry Assessment/Plan Resident Physician Supervision Note: I independently interviewed and examined the patient and verified the guallpa history and physical, reviewed labs and image studies, discussed the case with the resident Dr. Gallo and agree with the findings and care plan.
[2017-10-13] MEDS: MoRPHine SULFATE 2 MG/ML CARP IV PRN ×2 (10:04→23:25)
[2017-10-13 11:15] VITALS: BP 120/70; PULSE 58; TEMP 36.8; O2SAT 97
[2017-10-13] MEDS: LEVOFLOXACIN 750 MG TAB PO SCH (12:38)
[2017-10-13 14:58] VITALS: BP 119/68; PULSE 60; TEMP 36.5; O2SAT 97
--- NOTE | 2017-10-13 15:54 | Progress Note ---
Progress Note Date of Service Oct 13, 2017. Progress Note 13 October 2017 at 1530 Had a very lengthy discussion with the patient and also his daughter (Stacie, ) on the phone. Both wished to discuss his ultimate disposition. We discussed roughly the following: - In the short-term, we are working towards his being medically stable enough to be discharged from [facility]. - Upon discharge here, both support his going to [facility] for short-term rehabilitation. Both mention they may not want for him to stay there on a longer term basis. - The patient's daughter was hoping that either physical therapy or one of the treating doctors could call her back tomorrow with updated thoughts on his overall physical condition and need for long-term care. - The patient says he is debating whether or not he would like long-term care here versus in [place] with his daughter and other family. Both he and his daughter requests further information, if possible, on local resources for in- home care. I mentioned to them that case management may be able to help, but overall it will require some homework on their part.
[2017-10-13] MEDS: MAGNESIUM HYDROXIDE SUSP 30 ML UDC PO PRN (17:50)
[2017-10-13 20:38] VITALS: BP 129/75; PULSE 59; TEMP 37.5; O2SAT 96
[2017-10-13] MEDS: INSULIN GLARGINE SOLOSTAR 100 UNITS/ML 3 ML PEN SC SCH (21:42)
[2017-10-13] MEDS: SIMVASTATIN 40 MG TAB PO SCH (21:43)
[2017-10-13] MEDS: DOCUSATE SODIUM 100 MG CAP PO SCH (21:43)
[2017-10-14] VITALS (7 sets, daily range): BP systolic 112–130; BP diastolic 55–77; PULSE 58–65; TEMP 36.6–36.8; O2SAT 96–98
[2017-10-14 07:26] LABS: BASO % 0.2 %; BASO ABS # 0.02 K/uL (0-0.2); EOS % 1.7 %; EOS ABS # 0.21 K/uL (0-0.5); HEMATOCRIT 39.3 % (42-52); HEMOGLOBIN 13.1 g/dL (14.0-18.0); IG# 0.04 K/uL (0.00-0.02); LYMPH ABS # 1.27 K/uL (1.2-3.4); MEAN CELL VOLUME 85.1 fL (80-100); MEAN CORPUSCULAR HEMOGLOBIN 28.4 pg (25-34); MEAN CORPUSCULAR HGB CONC 33.3 g/dl (32-36); MEAN PLATELET VOLUME 10.1 fL (7.4-10.4); MONO % 9.9 %; MONO ABS # 1.26 K/uL (0.11-0.59); NEUT % 77.9 %; NEUT ABS # 9.91 K/uL (1.4-6.5); PLATELET COUNT 169 K/uL (130-400); RED CELL DISTRIBUTION WIDTH CV 16.6 % (11.5-14.5); RED CELL DISTRIBUTION WIDTH SD 49.2 fL (36.4-46.3); WHITE BLOOD COUNT 12.71 K/uL (4.8-10.8)
[2017-10-14] MEDS: DOCUSATE SODIUM 100 MG CAP PO SCH ×2 (08:07→21:14)
[2017-10-14] MEDS: METOPROLOL TARTRATE 25 MG TAB PO SCH ×2 (08:07→21:14)
[2017-10-14] MEDS: FUROSEMIDE 80 MG TAB PO SCH (08:08)
[2017-10-14] MEDS: RANITIDINE HCL 150 MG TAB PO SCH ×2 (08:08→21:14)
[2017-10-14] MEDS: ASPIRIN 81 MG ECTAB PO SCH (08:09)
[2017-10-14] MEDS: SENNA 8.6 MG TAB PO SCH (08:09)
[2017-10-14] MEDS: ACETAMINOPHEN 500 MG TAB PO SCH (08:09)
[2017-10-14 08:11] LABS: ALBUMIN 1.8 gm/dl (3.4-5.0); CALCIUM 8.7 mg/dl (8.5-10.1); CREATININE 2.83 mg/dl (0.60-1.40); TOTAL PROTEIN 7.3 gm/dl (6.4-8.2)
[2017-10-14] MEDS: MAGNESIUM HYDROXIDE SUSP 30 ML UDC PO PRN (08:13)
[2017-10-14] MEDS: INSULIN ASPART 100 UNITS/ML 3 ML PEN SC SCH ×4 (08:24→21:20)
[2017-10-14] MEDS: HEPARIN SOD 5000 UNIT/0.5 ML CARP SQ SCH ×2 (08:24→21:20)
[2017-10-14 09:54] LABS: POTASSIUM 5.5 mmol/L (3.5-5.1)
[2017-10-14] MEDS: MoRPHine SULFATE 2 MG/ML CARP IV PRN ×4 (09:56→23:47)
[2017-10-14 16:06] LABS: CALCIUM 8.5 mg/dl (8.5-10.1); CREATININE 2.66 mg/dl (0.60-1.40); POTASSIUM 4.8 mmol/L (3.5-5.1)
--- NOTE | 2017-10-14 18:32 | Family Medicine Progress Note ---
Progress Note Date of Service Oct 14, 2017. Subjective Pt evaluation today including: conversation w/ patient, physical exam, lab review Pain: Moderate pain, but overall improving PO Intake: Tolerating well Voiding: no voiding problems Patient feels overall better but continues to c/o pain Constitutional: No fever, No chills Respiratory: No cough, No shortness of breath Cardiovascular: + edema, No chest pain Abdomen: No pain, No nausea, No vomiting, No diarrhea Musculoskeletal: + joint pain, + swelling All Other Systems: Reviewed and Negative Medications Current Inpatient Medications Medications (Trade) Dose Ordered Sig/Melvin Route Start Time Stop Time Status Last Admin Dose Admin Heparin Sodium (Porcine) (Heparin Sq 5000 Unit/0.5ml) 5,000 unit Q12 SQ 10/03/17 23:00 11/02/17 22:59 10/14/17 08:24 5,000 UNIT Acetaminophen (Tylenol Tab) 650 mg Q4H PRN PO 10/03/17 20:30 11/02/17 20:29 10/05/17 14:19 650 MG Al Hydrox/Mg Hydrox/Simethicone (Maalox Max Susp) 15 ml Q4H PRN PO 10/03/17 20:30 11/02/17 20:29 Magnesium Hydroxide (Milk Of Magnesia Susp) 30 ml Q12H PRN PO 10/03/17 20:30 11/02/17 20:29 10/14/17 08:13 30 ML Ondansetron HCl (Zofran Inj) 4 mg Q6H PRN IV 10/03/17 20:30 11/02/17 20:29 Polyethylene (Miralax Powder Packet) 17 gm DAILY PRN PO 10/03/17 20:30 11/02/17 20:29 Acetaminophen (Tylenol Tab) 1,000 mg QAM PO 10/04/17 09:00 11/03/17 08:59 10/14/17 08:09 1,000 MG Aspirin (Ecotrin Tab) 81 mg DAILY PO 10/04/17 09:00 11/03/17 08:59 10/14/17 08:09 81 MG Ranitidine HCl (zANTac TAB) 150 mg BID PO 10/03/17 21:00 11/02/17 20:59 10/14/17 08:08 150 MG Simvastatin (Zocor Tab) 40 mg QPM PO 10/03/17 21:00 11/02/17 20:59 10/13/17 21:43 40 MG Insulin Aspart (novoLOG ASPART) SLIDING SCALE If C... ACHS SC 10/04/17 06:30 11/03/17 06:29 10/14/17 12:34 4 UNITS Glucose (Glucose 40% Gel) 15-30 GRAMS 15 GRAMS... UD PRN PO 10/04/17 00:00 11/03/17 00:00 Glucose (Glucose Chew Tab) 4-8 Tablets 4 Tabl... UD PRN PO 10/04/17 00:00 11/03/17 00:00 Dextrose (Dextrose 50% 50ML Syringe) 25-50ML 25ML FOR ... UD PRN IV 10/04/17 00:00 11/03/17 00:00 Glucagon (Glucagon Inj) 1 mg UD PRN SQ 10/04/17 00:00 11/03/17 00:00 Carbohydrates (Carbohydrates For Hypoglycemia) 15-30 GRAMS 15 grams if BSG 54-69... UD PRN PO 10/04/17 00:00 11/03/17 00:00 Senna (Senokot Tab) 8.6 mg QAM PO 10/05/17 09:00 11/04/17 08:59 10/14/17 08:09 8.6 MG Metoprolol Tartrate (Lopressor Tab) 25 mg BID PO 10/05/17 21:00 11/04/17 20:59 10/14/17 08:07 25 MG Insulin Glargine (Lantus Solostar Pen) 15 units QPM SC 10/05/17 21:00 11/03/17 20:59 10/13/17 21:42 15 UNITS Morphine Sulfate (MoRPHine SULFATE INJ) 2 mg Q4H PRN IV 10/08/17 19:00 10/17/17 22:29 10/14/17 13:37 2 MG Morphine Sulfate (MoRPHine SULFATE INJ) 3 mg ONE PRN IV 10/10/17 10:30 Docusate Sodium (coLACE CAP) 100 mg BID PO 10/13/17 21:00 11/12/17 20:59 10/14/17 08:07 100 MG Diclofenac Sodium (Voltaren 1% Top Gel) 1 appln BID EXT 10/14/17 21:00 11/13/17 20:59 Objective Vital Signs Date Time Temp Pulse Resp B/P (MAP) Pulse Ox O2 Delivery O2 Flow Rate FiO2 10/14/17 15:13 36.8 60 18 112/62 (79) 96 Room Air 10/14/17 11:32 36.7 62 16 112/55 (74) 98 10/14/17 08:22 98 Room Air 10/14/17 07:26 36.6 65 18 130/77 (94) 98 10/14/17 04:00 36.7 60 20 122/67 (85) 97 Room Air 10/14/17 00:22 36.7 58 20 129/70 (89) 96 Room Air 10/14/17 00:00 Room Air 10/13/17 22:13 Room Air 10/13/17 20:38 37.5 59 16 129/75 (93) 96 Room Air Physical Exam General Appearance: WD/WN, no apparent distress Eyes: EOMI ENT: hearing grossly normal, + pharyngeal erythema Neck: no adenopathy, trachea midline Respiratory/Chest: lungs clear, normal breath sounds, no respiratory distress Cardiovascular: regular rate, rhythm, no murmur Abdomen: normal bowel sounds, non tender, soft Extremities: + pedal edema (2+ on R), + pertinent finding (left AKA) Neurologic/Psychiatric: alert, normal mood/affect, oriented x 3 Skin: + jaundice Laboratory Results Last Resulted 10/14/17 07:04 Red Blood Count 4.62, Mean Corpuscular Volume 85.1, Mean Corpuscular Hemoglobin 28.4, Mean Corpuscular Hemoglobin Concent 33.3, Mean Platelet Volume 10.1, Neutrophils (%) (Auto) 77.9, Lymphocytes (%) (Auto) 10.0, Monocytes (%) (Auto) 9.9, Eosinophils (%) (Auto) 1.7, Basophils (%) (Auto) 0.2, Neutrophils # (Auto) 9.91, Lymphocytes # (Auto) 1.27, Monocytes # (Auto) 1.26, Eosinophils # (Auto) 0.21, Basophils # (Auto) 0.02 Last Resulted 10/14/17 15:18 Assessment and Plan Mr. Juan is a 81 yo M with PMH of chronic diastolic CHF, CKD III, T2DM, HTN, HLD, A-fib, BPH, anemia and left AK amputation who presented with RLE pain, swelling, and generalized weakness admitted for RLE cellulitis and sepsis POA. Sepsis POA in setting of RLE Cellulitis, Leukocytosis, Elevated Lactate - XR Foot, Tib/FIB, negative - Antibiotics discontinued in setting of improving cellulitis - blood cultures negative - WCC improved from admission but now hovering around 13 - Elevate leg, wrap in ZULY bandage to help relieve edema. Right leg edema (left leg AKA) - Improving - elevate leg, wrap - c/o pain in leg likely from leg edema. - Trying to minimize exposure to opioids unless severe pain; added voltaren gel prn THOMAS - likely secondary to sepsis and dehydration/hypoperfusion - Stable - 2.83 today, improved from admission creatinine of 4.1 (baseline 1.5- 2.4) - Discontinued maintenance IVF in setting of RLE edema and scrotal swelling - lasix at 80 mg daily DCd today due to likely intravascular fluid depletion Elevated LFTs with jaundice - Bili decreased today - Alk phos continuing to rise. - biliary US WNL - may be ?partly due to treatment w/zosyn - switched to rocephin--continued to rise, switched to levaquin - Need to consider other pathological causes if no improvement of LFTs - GI following, appreciate recs - Consider MRCP if LFTs not improving Chronic Diastolic CHF, Afib s/p pacemaker, HTN - last echo Apr 2016 showed normal EF - Held spironolactone given THOMAS & infection. - not on anticoagulation given h/o GI hemorrhage - continue home dose of metoprolol tartrate 25mg BID - Monitor volume status, i/o, daily weight Scrotal edema - likely from fluid overload, improving Thrombocytopenia - platelets stable, no evidence of bleeding - seems to be around baseline, however no mention of thrombocytopenia in prior hospital notes - outpatient f/u Venous stasis ulcer - likely entry point leading to cellulitis - wound care consulted T2DM - ISS - continue Lantus 15 units sq qpm - may benefit from switch to Lantus as opposed to NPH on d/c - HbA1c 6.6% HLD - Continue Statin GERD - Continue home Zantac Code: Full DVT Prophylaxis: Heparin 5000 q12h FEN: no IVF, heart healthy Diabetic diet Disposition: Remains on med/surg. - PT/OT participation required, given he will likely require rehab ([facility]) on d/c Resident Physician Supervision Note: I interviewed and examined the patient. Discussed with Dr. Reno and agree with findings and plan as documented in the note. Any exceptions or clarifications are listed here: None Documented By: James Oropeza feeling about the same no new complaints vitals noted nad breathing unlabored no pallor or icterus leg cellulitis/sepsis POA - improved. 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 cautious fluid balance, follow status and BMP closely Resident Tracking Resident Involvement: Resident Care Provided Care Provided: Adult Hospital Medicine
[2017-10-14] MEDS ORDERED: NURSING DECISION MEDICATION ORDER SCH (19:00)
[2017-10-14] MEDS ORDERED: MICONAZOLE NITRATE POWDER 43 GM EXT PRN (19:15)
[2017-10-14] MEDS: SIMVASTATIN 40 MG TAB PO SCH (21:14)
[2017-10-14] MEDS: DICLOFENAC SOD 1% GEL 100 GM TUBE EXT SCH (21:15)
[2017-10-14] MEDS: INSULIN GLARGINE SOLOSTAR 100 UNITS/ML 3 ML PEN SC SCH (21:20)
[2017-10-14] MEDS: ACETAMINOPHEN 325 MG TAB PO PRN (21:22)
[2017-10-15] VITALS (8 sets, daily range): BP systolic 110–141; BP diastolic 60–81; PULSE 54–60; TEMP 36.4–36.6; O2SAT 94–98
[2017-10-15 07:49] LABS: HEMATOCRIT 39.6 % (42-52); HEMOGLOBIN 13.5 g/dL (14.0-18.0); MEAN CORPUSCULAR HGB CONC 34.1 g/dl (32-36); MEAN PLATELET VOLUME 9.5 fL (7.4-10.4); PLATELET COUNT 171 K/uL (130-400); RED CELL DISTRIBUTION WIDTH CV 16.8 % (11.5-14.5); RED CELL DISTRIBUTION WIDTH SD 49.8 fL (36.4-46.3); WHITE BLOOD COUNT 15.77 K/uL (4.8-10.8)
[2017-10-15 08:19] LABS: CALCIUM 9.3 mg/dl (8.5-10.1); CREATININE 2.59 mg/dl (0.60-1.40); POTASSIUM 4.6 mmol/L (3.5-5.1)
[2017-10-15] MEDS: METOPROLOL TARTRATE 25 MG TAB PO SCH (09:27)
[2017-10-15] MEDS: DOCUSATE SODIUM 100 MG CAP PO SCH (09:27)
[2017-10-15] MEDS: ACETAMINOPHEN 500 MG TAB PO SCH (09:27)
[2017-10-15] MEDS: ASPIRIN 81 MG ECTAB PO SCH (09:28)
[2017-10-15] MEDS: SENNA 8.6 MG TAB PO SCH (09:28)
[2017-10-15] MEDS: RANITIDINE HCL 150 MG TAB PO SCH (09:28)
[2017-10-15] MEDS: DICLOFENAC SOD 1% GEL 100 GM TUBE EXT SCH (09:29)
[2017-10-15] MEDS: HEPARIN SOD 5000 UNIT/0.5 ML CARP SQ SCH (09:31)
[2017-10-15] MEDS: INSULIN ASPART 100 UNITS/ML 3 ML PEN SC SCH ×3 (09:31→16:30)
[2017-10-15] MEDS: MAGNESIUM HYDROXIDE SUSP 30 ML UDC PO PRN (09:39)
[2017-10-15] MEDS ORDERED: POLYETHYLENE (MIRALAX) 17 GM PACK PO SCH (12:30)
[2017-10-15] MEDS ORDERED: FURO-85 PO (12:34)
[2017-10-15 12:43] LABS: ALBUMIN 1.7 gm/dl (3.4-5.0); CALCIUM 8.7 mg/dl (8.5-10.1); CREATININE 2.65 mg/dl (0.60-1.40); POTASSIUM 4.7 mmol/L (3.5-5.1)
--- NOTE | 2017-10-15 12:43 | Discharge Instructions ---
Discharge Instructions Date of Service Oct 15, 2017. Admission Reason for Admission: Cellulitis Of Right Lower Extremity Discharge Discharge Diagnosis / Problem: Cellulitis of right leg, Transaminitis Discharge Goals Goal(s): Improve disease control, Prevent Disease Progression Activity Recommendations Activity Limitations: per Instructions/Follow-up section . Instructions / Follow-Up Instructions / Follow-Up During this stay you were admitted for an infection of your Right leg. You were treated with antibiotics and have completed a course of antibiotics. You were also found to have some abnormal labs of your liver, which we think may have been related to the antibiotics used to treat your infection. Your kidney function was also found to be abnormal, but this is improving. You will need to have labwork done twice a week to monitor your kidney and liver function. If your liver function is not improving, you may need to have further imaging tests to determine why your labs are abnormal. You are going to participate in rehabilitation to get your strength back. Current Hospital Diet Patient's current hospital diet: Renal Diet, Diabetes Type 2 Diet, Low Potassium Diet (2g K) Discharge Diet Recommended Diet: Diabetes Type 2 Diet, Renal Diet, Low Potassium Diet (2g K) Pending Studies Studies pending at discharge: no Medical Emergencies . Who to Call and When: Medical Emergencies: If at any time you feel your situation is an emergency, please call 911 immediately. . Non-Emergent Contact Non-Emergency issues call your: Primary Care Provider . . "Provider Documentation" section prepared by Rica Reno. .
[2017-10-15] MEDS ORDERED: OXYC-737 PO (13:37)
--- NOTE | 2017-10-15 16:38 | Discharge Summary ---
Discharge Summary Date of Service Oct 15, 2017. Discharge Summary Admission Date: Oct 03, 2017 at 20:31 Discharge Date: Oct 15, 2017 [facility] Principal Diagnosis: leg cellulitis Immunizations: Have You Had Influenza Vaccine: No History of Tetanus Vaccine?: Unknown History of Pneumococcal: Yes Pneumococcal Date: Mar 03, 2009 History of Hepatitis B Vaccine: Unknown Procedures: [~ rep ct add3]] RIGHT LOWER EXTREMITY VENOUS DOPPLER HISTORY: Right calf swelling, exam limited by pain, will premed w morphine COMPARISON STUDY: None. FINDINGS: There is normal compressibility, flow, and augmentation within the right lower extremity deep venous system. IMPRESSION: No DVT within the right lower extremity Electronically signed by: Sanford Zpaata M.D. 10/10/2017 1:50 PM Dictated Date/Time: 10/10/2017 1:49 PM [~ rep ct add3]] BILIARY ABDOMEN LIMITED CLINICAL HISTORY: rising alk phos and bili, r/o obstruction abnormal liver function studies TECHNIQUE: Ultrasound COMPARISON STUDY: 04/28/2016 Findings: Prior cholecystectomy. Common bile duct 4 mm. Liver is uniform. Pancreas is suboptimally seen due to overlying bowel content. Right kidney is negative for hydronephrosis. IMPRESSION: Negative study post cholecystectomy. No change from the prior exam. The above report was generated using voice recognition software. It may contain grammatical, syntax or spelling errors. Electronically signed by: Mario Fleming M.D. 10/06/2017 10:20 AM Dictated Date/Time: 10/06/2017 10:[address] SCAN OF THE ABDOMEN AND PELVIS WITHOUT CONTRAST CLINICAL HISTORY: diarrhea, dehydration, leukocytosis COMPARISON STUDY: April 2016 TECHNIQUE: CT scan of the abdomen and pelvis was performed from the lung bases to the proximal femurs. Images are reviewed in the axial, sagittal, and coronal planes. IV contrast was not administered for this examination. A dose lowering technique was utilized adhering to the principles of ALARA. CT DOSE: 1733.30 mGy.cm FINDINGS: Lower chest: There is bilateral gynecomastia. There are dependent atelectatic changes. Liver: No focal hepatic masses are visualized in this noncontrast study. Gallbladder: Surgically absent Spleen: Normal in size and attenuation. Pancreas: There is pancreatic atrophy. No pancreatic masses are visualized. Slight indistinctness the peripancreatic fat remains unchanged from the prior study. There are no definite findings to indicate acute pancreatitis. Adrenal glands: Unremarkable. Kidneys: There is extensive retroperitoneal fat. No renal, ureteral, or bladder calculi are visualized. Bowel: There are no transition zones indicate bowel obstruction. There is colonic diverticulosis. There are no acute peridiverticular inflammatory changes. The appendix is not visualized with certainty. There are no findings to indicate acute appendicitis. Peritoneum: There is a tiny fat-containing umbilical hernia and tiny fat-containing left inguinal hernia. Vasculature: The abdominal aorta is normal in course and caliber. Adenopathy: None. Pelvic viscera: There is mild prostamegaly. Skeletal structures: No destructive osseous lesions are seen. IMPRESSION: 1. No evidence of bowel obstruction. No evidence of free air 2. Gynecomastia 3. Surgically absent gallbladder 4. Mild prostamegaly 5. Stable extensive retroperitoneal fat. 6. Diverticulosis. No evidence of acute diverticulitis. No evidence of acute appendicitis 7. Minor infiltration of the peripancreatic fat, unchanged from the prior study. This likely is a chronic finding. Correlation with appropriate biochemical markers could be obtained to exclude pancreatitis. Electronically signed by: William Woodward M.D. 10/03/2017 7:49 PM Dictated Date/Time: 10/03/2017 7:42 PM Last 24 Hours Test 10/14/17 20:14 10/15/17 07:28 10/15/17 07:38 10/15/17 11:42 Bedside Glucose 177 mg/dl 134 mg/dl 207 mg/dl White Blood Count 15.77 K/uL Red Blood Count 4.66 M/uL Hemoglobin 13.5 g/dL Hematocrit 39.6 % Mean Corpuscular Volume 85.0 fL Mean Corpuscular Hemoglobin 29.0 pg Mean Corpuscular Hemoglobin Concent 34.1 g/dl RDW Standard Deviation 49.8 fL RDW Coefficient of Variation 16.8 % Platelet Count 171 K/uL Mean Platelet Volume 9.5 fL Sodium Level 133 mmol/L Potassium Level 4.6 mmol/L Chloride Level 99 mmol/L Carbon Dioxide Level 26 mmol/L Anion Gap 8.0 mmol/L Blood Urea Nitrogen 74 mg/dl Creatinine 2.59 mg/dl Est Creatinine Clear Calc Drug Dose 28.2 ml/min Estimated GFR () 26.0 Estimated GFR (Non- 22.4 BUN/Creatinine Ratio 28.6 Random Glucose 141 mg/dl Calcium Level 9.3 mg/dl Test 10/15/17 12:04 Sodium Level 131 mmol/L Potassium Level 4.7 mmol/L Chloride Level 101 mmol/L Carbon Dioxide Level 24 mmol/L Anion Gap 6.0 mmol/L Blood Urea Nitrogen 74 mg/dl Creatinine 2.65 mg/dl Est Creatinine Clear Calc Drug Dose 27.5 ml/min Estimated GFR () 25.2 Estimated GFR (Non- 21.8 BUN/Creatinine Ratio 27.8 Random Glucose 197 mg/dl Calcium Level 8.7 mg/dl Total Bilirubin 4.3 mg/dl Aspartate Amino Transf (AST/SGOT) 92 U/L Alanine Aminotransferase (ALT/SGPT) 41 U/L Alkaline Phosphatase 825 U/L Total Protein 7.0 gm/dl Albumin 1.7 gm/dl Globulin 5.3 gm/dl Albumin/Globulin Ratio 0.3 Consultations: GI Assessment and Plan Patient is a 81 year old male admitted with cellulitis and weakness with elevated total bilirubin and alkaline phosphatase in the setting of acute infection and IV antibiotic use. 1. Continue to trend liver panel off antibiotic therapy. 2. Total bilirubin is trending down. 3. Supportive medical care. Agree with BELINDA Davis as above Abd: Soft, NT, ND, +BS Continue current therapy Advance diet as tolerated <Electronically signed by Xenia HernandezN.P.> <Electronically signed by Romario Campo D.O.> Medication Reconciliation New Medications: Furosemide (Lasix) 20 Mg Tab 1 TAB PO DAILY for 30 Days, #30 TAB 5 Refills Oxycodone Immediate Rel Tab (Roxicodone Ir) 5 Mg Tab 5 MG PO Q4H PRN for Severe Pain, #36 TAB 0 Refills Continued Medications: Acetaminophen (8 Hour Pain Reliever) 650 Mg Tab 1300 MG PO QPM Acetaminophen (Acetaminophen Extra Stren) 500 Mg Tab 1000 MG PO QAM Artificial Tear Solution (Artificial Tears) 1 Alisha Alisha 1 DROPS OP QID, #30 ML 5 Refills Aspirin (Aspirin Ec) 81 Mg Tab 81 MG PO DAILY Insulin Human NPH (Novolin N) 100 Units/Ml Susp 40 UNITS SC BID Magnesium Hydroxide (Milk Of Magnesia) 30 Ml Susp 30 ML PO DAILY, ML Multiple Vitamins W/ Minerals (Multivitamin) 1 Liq Liq Potassium Chloride Microencaps (Potassium Chloride Er) 20 Meq Tab 5 MEQ PO QPM for 90 Days, TAB 3 Refills Ranitidine (Zantac) 150 Mg Tab 150 MG PO BID, 0 Refills Simvastatin (Zocor) 40 Mg Tab 40 MG PO QPM, TAB Spironolactone (Spironolactone) 25 Mg Tab 25 MG PO QAM, #30 TAB 5 Refills for congestive heart failure and to prevent fluid retention Discontinued Medications: Furosemide (Lasix) 80 Mg Tab 2 TABS PO AMPM, TAB Discharge Exam Physical Exam: General Appearance: no apparent distress Eyes: EOMI ENT: hearing grossly normal Neck: trachea midline Respiratory/Chest: no respiratory distress, no accessory muscle use Extremities: normal inspection 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 Juan is a 81 yo M with PMH of chronic diastolic CHF, CKD III, T2DM, HTN, HLD, A-fib, BPH, anemia and left AK amputation who presented with RLE pain, swelling, and generalized weakness admitted for RLE cellulitis and sepsis POA. Sepsis POA in setting of RLE Cellulitis, Leukocytosis, Elevated Lactate - XR Foot, Tib/FIB, negative - Antibiotics discontinued in setting of improving cellulitis (was treated for > 1wk IV) - blood cultures negative - WCC improved from admission but now hovering around 13 - Elevate leg, wrap in ZULY bandage to help relieve edema. Right leg edema (left leg AKA) -appearing predominantly due to venous stasis, compounded by inflammation from cellulitis - Improving - elevate leg, wrap - c/o pain in leg likely from leg edema. - Trying to minimize exposure to opioids unless severe pain; added voltaren gel prn THOMAS - likely secondary to sepsis and dehydration/hypoperfusion - Stable in the mid 2's, baseline 1.5-2.4 --continue to adjust diuretics based on clinical need and based on periodic BMP - would follow no less than twice a week for now Elevated LFTs with jaundice - LFTs all slowly trending downward - biliary US WNL - may be ?partly due to treatment w/zosyn - switched to rocephin--continued to rise, switched to levaquin - Need to consider other pathological causes if no improvement of LFTs and also follow to normalization since LFTs were slightly up on admission (ie pre zosyn) - GI can f/u outpt if needed - Consider MRCP if LFTs not improving Chronic Diastolic CHF, Afib s/p pacemaker, HTN - last echo Apr 2016 showed normal EF - careful balance between volume overload and overdiuresis - as above - adjust diuretics, follow BMP, follow clinically - not on anticoagulation given h/o GI hemorrhage - continue home dose of metoprolol tartrate 25mg BID - Monitor volume status, i/o, daily weight Scrotal edema - likely from fluid overload and venous stasis, improving Thrombocytopenia - platelets stable, no evidence of bleeding - seems to be around baseline, however no mention of thrombocytopenia in prior hospital notes - outpatient f/u Venous stasis ulcer - likely entry point leading to cellulitis - wound care consulted T2DM - ISS - continue Lantus 15 units sq qpm - may benefit from switch to Lantus as opposed to NPH on d/c - HbA1c 6.6% HLD - Continue Statin GERD - Continue home Zantac Code: Full DVT Prophylaxis: Heparin 5000 q12h Total Time Spent: Less than 30 minutes This includes examination of the patient, discharge planning, medication reconciliation, and communication with other providers. Discharge Instructions Please refer to the electronic Patient Visit Report (Discharge Instructions) for additional information. Additional Copies To Suman Ferguson
[2017-10-21] MEDS ORDERED: LPR25 (12:38)
== END 2017-10-15 19:00 | DRG 872 ==
LOC: EDBD 16:12 → C.EDC 16:13 → C.MED 20:31 → ENRESERV 20:37
PROVIDERS: ADMIT Hospitalist; ATTEND Family Medicine
DX: A41.9 Sepsis, unspecified organism (principal); N17.9 Acute kidney failure, unspecified; I13.0 Hypertensive heart and chronic kidney disease with heart failure and stage 1 through stage 4 chronic kidney disease, or unspecified chronic kidney disease; I50.32 Chronic diastolic (congestive) heart failure; L03.115 Cellulitis of right lower limb; R17 Unspecified jaundice; E86.0 Dehydration; E11.22 Type 2 diabetes mellitus with diabetic chronic kidney disease; N18.3 Chronic kidney disease, stage 3 (moderate); I48.91 Unspecified atrial fibrillation; N40.0 Benign prostatic hyperplasia without lower urinary tract symptoms; E78.5 Hyperlipidemia, unspecified; K21.9 Gastro-esophageal reflux disease without esophagitis; I87.8 Other specified disorders of veins; D69.6 Thrombocytopenia, unspecified; N50.89 Other specified disorders of the male genital organs; T36.95XA Adverse effect of unspecified systemic antibiotic, initial encounter; Z79.4 Long term (current) use of insulin; Z79.82 Long term (current) use of aspirin; Z79.899 Other long term (current) drug therapy; Z89.612 Acquired absence of left leg above knee; Z95.0 Presence of cardiac pacemaker

== ENCOUNTER → 2017-10-21 | Outpatient (CLI) | payer OTHER ==
[~2017-10-21] MED LIST changes: +ASPI81TA28 PO; +FURO-85 PO; -FURO80TA63 PO; +LPR25; -METO25TA3 PO; +OXYC-737 PO
[2017-10-21 08:54] LABS: BASO % 0.3 %; BASO ABS # 0.03 K/uL (0-0.2); EOS % 4.6 %; EOS ABS # 0.46 K/uL (0-0.5); HEMATOCRIT 36.8 % (42-52); IG# 0.06 K/uL (0.00-0.02); LYMPH % 14.7 %; LYMPH ABS # 1.48 K/uL (1.2-3.4); MEAN CELL VOLUME 86.8 fL (80-100); MEAN CORPUSCULAR HEMOGLOBIN 28.3 pg (25-34); MEAN CORPUSCULAR HGB CONC 32.6 g/dl (32-36); MONO % 9.3 %; MONO ABS # 0.94 K/uL (0.11-0.59); NEUT % 70.5 %; NEUT ABS # 7.13 K/uL (1.4-6.5); PLATELET COUNT 199 K/uL (130-400); RED CELL DISTRIBUTION WIDTH CV 17.3 % (11.5-14.5); RED CELL DISTRIBUTION WIDTH SD 53.4 fL (36.4-46.3)
[2017-10-21 09:02] LABS: ALBUMIN 1.9 gm/dl (3.4-5.0); ALKALINE PHOSPHATASE 597 U/L (45-117); ALT/SGPT 49 U/L (12-78); AST/SGOT 100 U/L (15-37); BLOOD UREA NITROGEN 76 mg/dl (7-18); CALCIUM 8.7 mg/dl (8.5-10.1); CARBON DIOXIDE 24 mmol/L (21-32); GLUCOSE 75 mg/dl (70-99); INR 1.2 (0.9-1.1); POTASSIUM 5.7 mmol/L (3.5-5.1); PTT PATIENT 33.4 SECONDS (21.0-31.0); SODIUM 126 mmol/L (136-145)
== END ==
LOC: C.LABCC 07:50
PROVIDERS: ATTEND Internal Medicine
DX: E88.09 Other disorders of plasma-protein metabolism, not elsewhere classified (principal); T14.8XXA Other injury of unspecified body region, initial encounter; X58.XXXA Exposure to other specified factors, initial encounter